=== PATIENT | female | born 1985 | race Caucasian/White ===

== ENCOUNTER → 2018-06-26 13:33 | Outpatient (CLI) | payer OTHER, SELFPAY ==
--- NOTE | 2018-06-26 14:28 | DI.US.S_ITS ---
PROCEDURE: US ABDOMEN LIMITED INDICATIONS: LEFT LOWER QUADRANT ABDOMINAL SWELLING,MASS AND LUMP TECHNIQUE: Real-time focused scanning was performed of the abdomen, with image documentation. COMPARISON: None. FINDINGS: No anterior abdominal wall abnormality or periumbilical hernia seen. IMPRESSION: No abdominal wall abnormality visualized. Dictated by: Capo ORTIZ Interpreted: Fuentes Fernandez MD on 06/26/2018 at 14:53 Approved by: Fuentes Fernandez M.D. on 06/26/2018 at 15:42
== END ==
PROVIDERS: Visit Provider Family Medicine
DX: R19.04 Left lower quadrant abdominal swelling, mass and lump (principal)
CPT/HCPCS: 76705

== ENCOUNTER → 2019-05-07 09:55 | Outpatient (CLI) | payer OTHER, SELFPAY ==
[2019-05-07 11:41] LABS: HCG Quantitative /Beta subunit 5618.8 mIU/mL
== END ==
PROVIDERS: PCP Family Medicine; Visit Provider Nurse Practitioner Family
DX: Z32.01 Encounter for pregnancy test, result positive (principal)
CPT/HCPCS: 36415; 84702

== ENCOUNTER → 2019-05-16 15:42 | Outpatient (CLI) | payer OTHER, SELFPAY ==
--- NOTE | 2019-05-16 15:44 | DI.RAD.S_ITS ---
PROCEDURE: XR CHEST 2V INDICATIONS: clnic pneumonia poor response to azithromycin 7 wks gestatio TECHNIQUE: 2 views of the chest were acquired. COMPARISON: None. FINDINGS: Surgical changes and devices: None. Lungs and pleura: Lungs are clear. No pleural effusions or pneumothorax. Mediastinum: Mediastinal contours are normal. Heart size is normal. Bones and chest wall: No suspicious bony abnormalities. Soft tissues appear unremarkable. IMPRESSION: Normal for age, source of current pneumonia symptoms is not seen. Dictated by: Saleem Adams M.D. on 05/16/2019 at 16:50 Approved by: Saleem Adams M.D. on 05/16/2019 at 16:50
== END ==
PROVIDERS: PCP Family Medicine; Visit Provider Family Medicine
DX: O99.511 Diseases of the respiratory system complicating pregnancy, first trimester (principal); J18.9 Pneumonia, unspecified organism; Z3A.01 Less than 8 weeks gestation of pregnancy
CPT/HCPCS: 71046

== ENCOUNTER → 2019-05-22 11:34 | Outpatient (CLI) | payer OTHER, SELFPAY ==
--- NOTE | 2019-05-22 11:35 | DI.US.S_ITS ---
PROCEDURE: US OB <= 14 WEEKS FETUS INDICATIONS: INITIAL DATING AND VIABILITY, UNSURE OF DATES OUTSIDE/PRIOR DATING DATA: Last menstrual period (LMP): Unknown. LMP-based estimated date of delivery (IRVIN): N./A.. First dating scan (date and location): 05/22/19. Estimated date of delivery (IRVNI) from first dating scan: 01/10/20. TECHNIQUE: Real-time scanning was performed of the fetus and maternal pelvic organs, with image documentation. Endovaginal scanning was also performed to better visualize the fetus and maternal ovaries. COMPARISON: None. FINDINGS: Embryo: A 8mm crown-rump length corresponding to 6 weeks 5 days. Heart rate measures 135 beats per minute. Measurement variability in dating: +/- 4 weeks by LMP, +/- 7 days by mean sac diameter (use before 6 weeks gestation if crown-rump length not able to be measured), +/- 5 days by crown-rump length (up to 8 weeks 6 days gestation), +/- 7 days by crown-rump length (up to 13 weeks 6 days gestation). Maternal organs: Right ovary not visualized. Left ovary within normal limits.. Limited images through the kidneys demonstrate no hydronephrosis. 2 small posterior uterine fibroids which appear to be intramural largest measuring up to 2.4 cm. IMPRESSION: 6 week 5 day single living IUP. Maternal intramural posterior fibroids, largest measuring up to 2.4 cm. Dictated by: Capo Galvez [facility] Interpreted: Andrzej Morataya MD on 05/22/2019 at 16:43 Approved by: Andrzej Morataya M.D. on 05/22/2019 at 17:29
== END ==
PROVIDERS: PCP Family Medicine; Visit Provider Family Medicine
DX: O34.11 Maternal care for benign tumor of corpus uteri, first trimester (principal); D25.1 Intramural leiomyoma of uterus; Z3A.01 Less than 8 weeks gestation of pregnancy
CPT/HCPCS: 76801

== ENCOUNTER → 2019-06-04 11:31 | Outpatient (CLI) | payer OTHER, SELFPAY ==
[2019-06-04 12:38] LABS: Appearance Urine UA SL CLOUDY; Bilirubin Urine UA NEGATIVE (NEGATIVE); Color Urine UA YELLOW; Glucose Urine UA NEGATIVE (Negative); Ketones Urine UA 1+ (NEGATIVE); Leukocyte Esterase Urine UA NEGATIVE (NEGATIVE); Nitrite Urine UA NEGATIVE (Negative); Occult Blood Urine UA NEGATIVE (Negative); Protein Urine UA NEGATIVE (Negative); Specific Gravity Urine UA 1.015 (1.000-1.035); Urobilinogen Urine UA 0.2 E.U./dL (0.2)
[2019-06-04 12:41] LABS: pH Urine UA 6.5 (4.5-8.0)
[2019-06-04 12:52] LABS: Add Manual Diff / Slide Review NO; Basophils Absolute Auto 0 /uL (0-100); Basophils Percent Auto 0.7 % (0-2); Eosinophils Absolute Auto 100 /uL (0-450); Eosinophils Percent Auto 1.9 % (2-4); Hematocrit 36.2 % (36-46); Hemoglobin 12.5 g/dL (12.0-16.0); Lymphocytes Absolute Auto 1400 /uL (1100-4500); Lymphocytes Percent Auto 23.3 % (25-40); Mean Corpuscular HGB Conc 34.5 % (30-36); Mean Corpuscular Hemoglobin 33.4 PG (26-34); Mean Corpuscular Volume 96.8 fL (80-100); Monocytes Absolute Auto 300 /uL (0-900); Monocytes Percent Auto 5.1 % (3-14); Neutrophils Absolute Auto 4300 /uL (1500-7000); Platelet Count 231 X10^3/uL (150-400); Red Blood Cell Count 3.74 X10^6/uL (4.0-5.2); Red Cell Distribution Width 13.1 % (11.6-14.8); White Blood Cell Count 6.2 X10^3/uL (4.5-11.0)
[2019-06-04 17:07] LABS: Hepatitis B Surface Antigen NEGATIVE s/c (NEGATIVE)
[2019-06-04 17:19] LABS: HIV 1 & 2 Ab/Ag 4th Gen Combo NEGATIVE (NEGATIVE); Hep C Virus Ab w/Reflex Quant NEGATIVE s/c (NEGATIVE)
[2019-06-06 17:55] LABS: RPR Screen Nonreactive (Nonreactive)
== END ==
PROVIDERS: PCP Family Medicine; Visit Provider Family Medicine
DX: Z34.01 Encounter for supervision of normal first pregnancy, first trimester (principal)
CPT/HCPCS: 36415; 80055; 81003; 86787; 86803; 86850; 86900; 86901; 87086; 87389

== ENCOUNTER → 2019-08-22 14:02 | Outpatient (CLI) | payer OTHER, SELFPAY ==
--- NOTE | 2019-08-22 14:03 | DI.US.S_ITS ---
PROCEDURE: US OB >= 14 WEEKS FETUS INDICATIONS: ANATOMY OUTSIDE/PRIOR DATING DATA: Last menstrual period (LMP): Unknown. LMP-based estimated date of delivery (IRVIN): Not applicable. First dating scan (date and location): [facility], 05/22/19. Estimated date of delivery (IRVIN) from first dating scan: 01/10/20. TECHNIQUE: Real-time scanning was performed of the fetus, with image documentation and biometric measurements. COMPARISON: [facility], OB <= 14 WEEKS FETUS, 05/22/2019, 11:47. [facility], , PELVIC COMPLETE, 07/18/2013, 10:54. FINDINGS: General: A single living intrauterine gestation is present. Presentation: Breech. Placenta: Placental position is anterior, without previa. Amniotic fluid index: 12.5 cm, normal range is 5-24 cm. heart rate: 149 beats per minute. Maternal cervical canal: 3.9 cm long. Normal lower limit is 2.5 cm. biometrics: Biparietal diameter: 3.9 cm, for gestational age of 17 weeks 6 days. Head circumference: 16.3 cm, for gestational age of 19 weeks one day. Abdominal circumference: 15.3 cm, for a gestational age of 20 weeks 4 days Femur length: 3.4 cm, for a gestational age of 20 weeks 6 days. Estimated gestational age from initial scan: 19 weeks 6 days. Composite gestational age from present scan: 19 weeks 4 days. Estimated weight and percentile: 350 g, 75th percentile. Measurement variability for biometric dating: +/- 7 days from 14 weeks to 15 weeks 6 days gestation, +/- 10 days from 16 weeks to 21 weeks 6 days gestation, +/- 2 weeks from 22 weeks to 27 weeks 6 days gestation, +/- 3 weeks for 28 weeks gestation or later. weight reference: 4500 g or EFW >90/95% is considered macrosomia or large for gestational age. EFW <10% is small for gestational age. EFW 5% or less is considered intra-uterine growth restriction. 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 The herniated contents measure approximately 3.1 x 4.1 x 3.0 cm in size. Nuchal skin fold: Could not be measured on this exam. Face: Nose, lips, and orbits appear intact. Spine: No ultrasound evidence for spina bifida. Heart: 4-chambered heart is present. Proximal ventricular outflow tracts could not demonstrate an obvious defect by ultrasound. Diaphragm: Diaphragm appears intact. Stomach: Stomach is present. Kidneys: No hydronephrosis. Cord: Umbilical cord appears to have an orthotopic insertion. Bladder: Normal in size. Extremities: All 4 extremities identified. IMPRESSION: 1. Single intrauterine gestation with heart rate of 149 beats per minute, amniotic fluid index of 12.5 cm, and composite gestational age from present scan of 19 weeks 4 days. 2. 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 Recommend clinical followup for further evaluation and management. Consider maternal medicine referral/consult. Followup ultrasounds are recommended. These findings were discussed with the patient at the time of the exam. These findings and recommendations were also discussed with Dr. Jonny Edouard, on-call covering provider for referring provider Dr. Jocy Rose, by telephone by Dr. Hayden at approximately 3:30pm on 08/22/19. Dictated by: Reyes Hayden M.D. on 08/22/2019 at 15:41 Approved by: Reyes Hayden M.D. on 08/22/2019 at 16:19
== END ==
PROVIDERS: PCP Family Medicine; Visit Provider Family Medicine
DX: Z36.89 Encounter for other specified antenatal screening (principal); Z3A.19 19 weeks gestation of pregnancy
CPT/HCPCS: 76811

== ENCOUNTER → 2020-02-04 16:53 | Outpatient (CLI) | payer OTHER, SELFPAY ==
[2020-02-04 18:47] LABS: HCG Quantitative /Beta subunit 11593 mIU/mL
== END ==
PROVIDERS: PCP Family Medicine; Referring Provider Family Medicine; Visit Provider Family Medicine
DX: N91.2 Amenorrhea, unspecified (principal)
CPT/HCPCS: 36415; 84702

== ENCOUNTER → 2020-02-06 09:14 | Outpatient (CLI) | payer OTHER, SELFPAY ==
[2020-02-06 11:17] LABS: HCG Quantitative /Beta subunit 15510 mIU/mL
== END ==
PROVIDERS: PCP Family Medicine; Referring Provider Family Medicine; Visit Provider Family Medicine
DX: N91.2 Amenorrhea, unspecified (principal)
CPT/HCPCS: 36415; 84702

== ENCOUNTER → 2020-02-09 15:59 | Outpatient (CLI) | payer OTHER, SELFPAY ==
--- NOTE | 2020-02-09 16:02 | DI.US.S_ITS ---
PROCEDURE: US OB <= 14 WEEKS FETUS INDICATIONS: VIABILITY OUTSIDE/PRIOR DATING DATA: Last menstrual period (LMP): 12/21/19. LMP-based estimated date of delivery (IRVIN): 09/26/20. First dating scan (date and location): 02/09/20. Estimated date of delivery (IRVIN) from first dating scan: 09/29/20. TECHNIQUE: Real-time scanning was performed of the fetus and maternal pelvic organs, with image documentation. Endovaginal scanning was also performed to better visualize the fetus and maternal ovaries. COMPARISON: [facility], , OB <= 14 WEEKS FETUS, 05/22/2019, 11:47. FINDINGS: Embryo: Eros-rump length measures 7 mm corresponding to 6 weeks 4 days. Embryonic heart rate measures 115 beats per minute. Measurement variability in dating: +/- 4 weeks by LMP, +/- 7 days by mean sac diameter (use before 6 weeks gestation if crown-rump length not able to be measured), +/- 5 days by crown-rump length (up to 8 weeks 6 days gestation), +/- 7 days by crown-rump length (up to 13 weeks 6 days gestation). Maternal organs: Ovaries within normal limits, with left corpus luteal cyst measuring 2.6 cm.. Limited images through the kidneys demonstrate no hydronephrosis. IMPRESSION: 6 week 4 day single living IUP corresponding to ultrasound IRVIN of 09/29/20. Dictated by: Capo Galvez [facility] Interpreted: Fuentes Fernandez MD on 02/10/2020 at 9:11 Approved by: Fuentes Fernandez M.D. on 02/10/2020 at 11:22
[2020-02-09 17:45] LABS: HCG Quantitative /Beta subunit 32556 mIU/mL
== END ==
PROVIDERS: PCP Family Medicine; Referring Provider Family Medicine; Visit Provider Family Medicine
DX: Z34.91 Encounter for supervision of normal pregnancy, unspecified, first trimester (principal); Z3A.01 Less than 8 weeks gestation of pregnancy
CPT/HCPCS: 36415; 76801; 84702

== ENCOUNTER → 2020-02-16 16:53 | Outpatient (CLI) | payer OTHER, SELFPAY ==
[2020-02-16 18:30] LABS: Add Manual Diff / Slide Review NO; Appearance Urine UA CLEAR; Basophils Absolute Auto 0 /uL (0-100); Basophils Percent Auto 0.4 % (0-2); Bilirubin Urine UA NEGATIVE (NEGATIVE); Color Urine UA YELLOW; Eosinophils Absolute Auto 100 /uL (0-450); Eosinophils Percent Auto 1.4 % (2-4); Glucose Urine UA NEGATIVE (Negative); Hematocrit 34.4 % (36-46); Hemoglobin 12.2 g/dL (12.0-16.0); Ketones Urine UA NEGATIVE (NEGATIVE); Lymphocytes Absolute Auto 1800 /uL (1100-4500); Lymphocytes Percent Auto 27.1 % (25-40); Mean Corpuscular HGB Conc 35.3 % (30-36); Mean Corpuscular Hemoglobin 34.7 PG (26-34); Mean Corpuscular Volume 98.1 fL (80-100); Monocytes Absolute Auto 300 /uL (0-900); Monocytes Percent Auto 5.3 % (3-14); Neutrophils Absolute Auto 4300 /uL (1500-7000); Neutrophils Percent Auto 65.8 % (50-75); Nitrite Urine UA NEGATIVE (Negative); Occult Blood Urine UA NEGATIVE (Negative); Platelet Count 238 X10^3/uL (150-400); Protein Urine UA NEGATIVE (Negative); Red Blood Cell Count 3.51 X10^6/uL (4.0-5.2); Red Cell Distribution Width 12.3 % (11.6-14.8); Specific Gravity Urine UA <=1.005 (1.000-1.035); Urobilinogen Urine UA 0.2 E.U./dL (0.2); White Blood Cell Count 6.6 X10^3/uL (4.5-11.0)
[2020-02-16 18:34] LABS: Leukocyte Esterase Urine UA NEGATIVE (NEGATIVE)
[2020-02-17 04:07] LABS: RPR Screen Non Reactive (Non Reactive)
[2020-02-17 08:09] LABS: Varicella IgG Antibody 323 index (Immune >165)
[2020-02-17 16:01] LABS: Hepatitis B Surface Antigen NEGATIVE s/c (NEGATIVE)
[2020-02-17 16:16] LABS: HIV 1 & 2 Ab/Ag 4th Gen Combo NEGATIVE (NEGATIVE); Hep C Virus Ab w/Reflex Quant NEGATIVE s/c (NEGATIVE)
[2020-02-17 16:24] LABS: Rubella Antibody IgG 27.5 IU/mL (>15)
== END ==
PROVIDERS: PCP Family Medicine; Referring Provider Family Medicine; Visit Provider Family Medicine
DX: Z34.90 Encounter for supervision of normal pregnancy, unspecified, unspecified trimester (principal)
CPT/HCPCS: 36415; 80055; 81003; 86787; 86803; 86850; 86900; 86901; 87086; 87389

== ENCOUNTER → 2020-05-14 07:45 | Outpatient (CLI) | payer OTHER, SELFPAY ==
--- NOTE | 2020-05-14 07:46 | DI.US.S_ITS ---
PROCEDURE: US OB >= 14 WEEKS FETUS INDICATIONS: ANATOMIC SURVEY OUTSIDE/PRIOR DATING DATA: Last menstrual period (LMP): 12/21/19. LMP-based estimated date of delivery (IRVIN): 09/26/20 . First dating scan (date and location): 02/09/20 . Estimated date of delivery (IRVIN) from first dating scan: 09/29/20 . TECHNIQUE: Real-time scanning was performed of the fetus, with image documentation and biometric measurements. Endovaginal scanning: Not needed COMPARISON: [facility], OB >= 14 WEEKS FETUS, 08/22/2019, 14:26. FINDINGS: General: A single living intrauterine gestation is present. Presentation: Variable. Placenta: Placental position is posterior , without previa. Amniotic fluid index: 12.4 cm, normal range is 5-24 cm. heart rate: 160 beats per minute. Maternal cervical canal: 5.2 cm long. Normal lower limit is 2.5 cm. biometrics: Biparietal diameter: 4.5 cm, 19 weeks 4 days Head circumference: 16.7 cm, 19 weeks 2 days Abdominal circumference: 14.7 cm, 20 weeks 0 days Femur length: 3.1 cm, 19 weeks 5 days Estimated gestational age from initial scan: 20 weeks 2 days. Composite gestational age from present scan: 19 weeks 5 days Estimated weight and percentile: 311 g, 19th percentile Measurement variability for biometric dating: +/- 7 days from 14 weeks to 15 weeks 6 days gestation, +/- 10 days from 16 weeks to 21 weeks 6 days gestation, +/- 2 weeks from 22 weeks to 27 weeks 6 days gestation, +/- 3 weeks for 28 weeks gestation or later. weight reference: 4500 g or EFW >90/95% is considered macrosomia or large for gestational age. EFW <10% is small for gestational age. EFW 5% or less is considered intra-uterine growth restriction. Anatomic survey: Neuro: Ventricles are non-dilated at less than 10 mm. Cisterna magna is normal at 3-11 mm. Cerebellum is normal in size and morphology. Nuchal skin fold: Normal at less than 6 mm between 14-21 weeks gestational age. Face: Nose and lips, facial profile are poorly visualized. Spine: No evidence for spina bifida. Heart: 4-chambered heart is not well seen, with poorly visualized ventricular outflow tracts. Diaphragm: Diaphragm is intact. Stomach: Left-sided stomach is present. Kidneys: No hydronephrosis. Normal is less than 5 mm in 2nd trimester, less than 7 mm in 3rd trimester. Cord: 3-vessel cord has orthotopic insertion. Bladder: Normal in size. Extremities: All 4 extremities identified. IMPRESSION: The facial region and ventricular outflow tracts are relatively poorly visualized as is the 4 chamber view the heart. This is due to positioning. Otherwise the study is normal. Follow-up limited Ob ultrasound to complete the anatomic survey in 7-10 days likely is warranted. Dictated by: Saleem Adams M.D. on 05/14/2020 at 11:45 Approved by: Saleem Adams M.D. on 05/14/2020 at 11:51
== END ==
PROVIDERS: PCP Family Medicine; Referring Provider Family Medicine; Visit Provider Family Medicine
DX: Z34.82 Encounter for supervision of other normal pregnancy, second trimester (principal); Z3A.19 19 weeks gestation of pregnancy
CPT/HCPCS: 76811

== ENCOUNTER → 2020-05-28 09:45 | Outpatient (CLI) | payer OTHER, SELFPAY ==
--- NOTE | 2020-05-28 09:46 | DI.US.S_ITS ---
PROCEDURE: US OB FOLLOW UP INDICATIONS: requested on last imaging, eval heart OUTSIDE/PRIOR DATING DATA: Last menstrual period (LMP): 12/21/2019. LMP-based estimated date of delivery (IRVIN): 09/26/2020 First dating scan (date and location): 02/08/2021. Estimated date of delivery (IRVIN) from first dating scan: 09/29/2020. TECHNIQUE: Real-time scanning was performed of the fetus, with image documentation. Endovaginal scanning: Completed COMPARISON: [facility], , OB >= 14 WEEKS FETUS, 05/14/2020, 8:06. FINDINGS: A single living intrauterine gestation is present. Presentation: Vertex. Placenta: Placental position is posterior, without previa. Amniotic fluid index: 11.5 cm, normal range is 5-24 cm. heart rate: 135 beats per minute. Maternal cervical canal: 5.2 cm long. Normal lower limit is 2.5 cm. Additional sonographic evaluation of structures was also performed, compounded to prior survey performed on 05/14/2020. diaphragm appears unremarkable. Normal anatomic appearance of the four-chamber heart view, right ventricular outflow tract, and left ventricular outflow tract. spine and posterior skin line appear intact. lips and nose are intact. Nasal bone is intact. IMPRESSION: Completion of anatomic survey without evident abnormality. Dictated by: Pedro Minor M.D. on 05/30/2020 at 10:41 Approved by: Pedro Minor M.D. on 05/30/2020 at 10:53
== END ==
PROVIDERS: PCP Family Medicine; Referring Provider Family Medicine; Visit Provider Family Medicine
DX: Z36.2 Encounter for other antenatal screening follow-up (principal); Z3A.20 20 weeks gestation of pregnancy
CPT/HCPCS: 76816

== ENCOUNTER → 2020-07-09 10:58 | Outpatient (CLI) | payer OTHER, SELFPAY ==
[2020-07-09 14:26] LABS: Add Manual Diff / Slide Review NO; Basophils Absolute Auto 100 /uL (0-100); Basophils Percent Auto 0.6 % (0-2); Eosinophils Absolute Auto 100 /uL (0-450); Eosinophils Percent Auto 1.1 % (2-4); Hematocrit 32.3 % (36-46); Hemoglobin 11.3 g/dL (12.0-16.0); Lymphocytes Absolute Auto 1100 /uL (1100-4500); Lymphocytes Percent Auto 11.1 % (25-40); Mean Corpuscular HGB Conc 34.9 % (30-36); Mean Corpuscular Hemoglobin 34.8 PG (26-34); Mean Corpuscular Volume 99.8 fL (80-100); Monocytes Absolute Auto 500 /uL (0-900); Monocytes Percent Auto 4.9 % (3-14); Neutrophils Absolute Auto 8200 /uL (1500-7000); Neutrophils Percent Auto 82.3 % (50-75); Platelet Count 203 X10^3/uL (150-400); Red Blood Cell Count 3.24 X10^6/uL (4.0-5.2); White Blood Cell Count 9.9 X10^3/uL (4.5-11.0)
[2020-07-09 15:17] LABS: GTT (PREG) 1 Hour PP 50gm Dose 76 mg/dL (76-139)
== END ==
PROVIDERS: PCP Family Medicine; Referring Provider Family Medicine; Visit Provider Family Medicine
DX: Z34.83 Encounter for supervision of other normal pregnancy, third trimester (principal); Z3A.28 28 weeks gestation of pregnancy
CPT/HCPCS: 36415; 82950; 85025

== ENCOUNTER → 2020-09-03 09:44 | Outpatient (CLI) | payer OTHER, SELFPAY ==
[2020-09-04 08:15] LABS: Strep Grp B PCR NEG for Grp B Strep
== END ==
PROVIDERS: PCP Family Medicine; Visit Provider Family Medicine
DX: Z34.90 Encounter for supervision of normal pregnancy, unspecified, unspecified trimester (principal); Z3A.36 36 weeks gestation of pregnancy
CPT/HCPCS: 87653

== ENCOUNTER → 2020-09-07 14:28 | Outpatient (CLI) | payer OTHER, SELFPAY ==
--- NOTE | 2020-09-07 14:30 | DI.US.S_ITS ---
PROCEDURE: US OB LIMITED INDICATIONS: SIZE LESS THAN DATES. GROWTH AND AMNIOTIC FLUID. OUTSIDE/PRIOR DATING DATA: Last menstrual period (LMP): 12/21/2019. LMP-based estimated date of delivery (IRVIN): 09/26/2020 . First dating scan (date and location): 02/09/2020 . Estimated date of delivery (IRVIN) from first dating scan: 09/29/2020 . TECHNIQUE: Real-time scanning was performed of the fetus, with image documentation and biometric measurements. Endovaginal scanning: No COMPARISON: [facility], OB FOLLOW UP, 05/28/2020, 10:33. FINDINGS: General: A single living intrauterine gestation is present. Presentation: Vertex. Placenta: Placental position is posterior , without previa. Amniotic fluid index: 15.6 cm, normal range is 5-24 cm. heart rate: 136 beats per minute. Maternal cervical canal: 3.7 cm long. Normal lower limit is 2.5 cm. biometrics: Biparietal diameter: 36 weeks 4 days Head circumference: 34 weeks 1 day Abdominal circumference: 34 weeks 3 days Femur length: 35 weeks 2 days Estimated gestational age from initial scan: 36 weeks 6 days Composite gestational age from present scan: 35 weeks 1 day Estimated weight and percentile: 2524 g; 11th percentile Measurement variability for biometric dating: +/- 7 days from 14 weeks to 15 weeks 6 days gestation, +/- 10 days from 16 weeks to 21 weeks 6 days gestation, +/- 2 weeks from 22 weeks to 27 weeks 6 days gestation, +/- 3 weeks for 28 weeks gestation or later. weight reference: 4500 g or EFW >90/95% is considered macrosomia or large for gestational age. EFW <10% is small for gestational age. EFW 5% or less is considered intra-uterine growth restriction. Other: Not applicable. IMPRESSION: Single living IUP redemonstrated and interval growth is lower limits of normal. Dictated by: Capo Galvez [facility] Interpreted: Andrzej Morataya MD on 09/07/2020 at 16:21 Approved by: Andrzej Morataya M.D. on 09/07/2020 at 16:46
== END ==
PROVIDERS: PCP Family Medicine; Referring Provider Family Medicine; Visit Provider Family Medicine
DX: O26.843 Uterine size-date discrepancy, third trimester (principal); Z3A.35 35 weeks gestation of pregnancy
CPT/HCPCS: 76815

== ENCOUNTER 2020-09-07 17:28 | Outpatient (CLI) | payer OTHER, SELFPAY ==
--- NOTE | 2020-09-07 20:40 | PM.OBTRLD ---
Visit Information Visit Information Date of evaluation: 09/07/20 Primary OB Provider: Jocy Rose Reason for Evaluation: Yes non-stress test non-stress test reason: other (SGA progressing to IUGR) [facility] Medical History (Updated 09/07/20 @ 20:42 by Jocy Rose MD) Fetus with encephalocele, antepartum History of drug use Psoriasis (~1999) Surgical History Anesthesia Status post wrist surgery (~2002) Family History (Updated 02/18/20 @ 15:57 by Tresa Paulino RN) Father Age: 70 Mental health problem Bipolar 1 disorder Grandfather Mental health problem Suicide Diabetes mellitus Myocardial infarction Grandmother Hypertension High cholesterol History of multiple miscarriages Kidney stones Brother Depression Grandmother Emphysema of lung Grandfather Diabetes mellitus Mother Toshia infection Depression Family/Other Breast cancer Family/Other Leukemia Social History marital status: unmarried,living together household members: significant other 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) current occupational exposures/hazards: Yes special kathleen needs: No Smoking Status: Former smoker second hand exposure: Yes alcohol intake: former (pre-) substance use type: former substance user Evaluation Evaluation Baseline heart rate: 130 Variability: Moderate (11-25) monitor accelerations: Present monitor decelerations: Absent Category of Tracing: Reactive Diagnosis, Plan/Disposition Final Diagnosis (1) 36 weeks gestation of : Status: Acute (2) SGA (small for gestational age), , affecting care of mother, antepartum: Status: Acute Plan/Disposition Plan: 35yo at 36w6d here for NST due to SGA progressing to IUGR. NST reactive. Stable of d/c home. OB Disposition: home
[2020-09-09 08:08] LABS: RPR Screen Non Reactive (Non Reactive)
[2020-09-09 12:54] LABS: Toxoplasma IgG Interp Negative (.); Toxoplasma gohndii IgG <3.0 IU/mL (0.0-7.1)
[2020-09-09 19:07] LABS: HSV I/II IgM <0.91 Ratio (0.00-0.90)
[2020-09-10 16:35] LABS: CMV DNA, Quant Real Time PCR Negative (Negative)
== END 2020-09-07 19:08 | disposition home or self-care (01) ==
LOC: LAB 17:35 → LABOR 17:50
PROVIDERS: PCP Family Medicine; Referring Provider Family Medicine; Visit Provider Family Medicine
DX: O26.843 Uterine size-date discrepancy, third trimester (principal); Z3A.36 36 weeks gestation of pregnancy
CPT/HCPCS: 36415; 59025; 76815; 86592; 86694; 86777; 86778; 87497; G0378

== ENCOUNTER 2020-09-10 11:31 | Outpatient (CLI) | payer OTHER, SELFPAY ==
--- NOTE | 2020-09-10 12:01 | P.TNLD_ITS ---
Visit Information Visit Information Date of evaluation: 09/10/20 Primary OB Provider: Jocy Rose Reason for Evaluation: Yes non-stress test non-stress test reason: other (SGA) [facility] Medical History (Updated 09/10/20 @ 14:25 by Jocy Rose MD) Fetus with encephalocele, antepartum History of drug use Psoriasis (~1999) Surgical History Anesthesia Status post wrist surgery (~2002) Family History (Updated 02/18/20 @ 15:57 by Tresa Paulino RN) Father Age: 70 Mental health problem Bipolar 1 disorder Grandfather Mental health problem Suicide Diabetes mellitus Myocardial infarction Grandmother Hypertension High cholesterol History of multiple miscarriages Kidney stones Brother Depression Grandmother Emphysema of lung Grandfather Diabetes mellitus Mother Toshia infection Depression Family/Other Breast cancer Family/Other Leukemia Social History marital status: unmarried,living together household members: significant other 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) current occupational exposures/hazards: Yes special kathleen needs: No Smoking Status: Former smoker second hand exposure: Yes alcohol intake: former (pre-) substance use type: former substance user Evaluation Evaluation Baseline heart rate: 135 Variability: Moderate (11-25) monitor accelerations: Present monitor decelerations: Absent Category of Tracing: Reactive Diagnosis, Plan/Disposition Final Diagnosis (1) SGA (small for gestational age), , affecting care of mother, antepartum: Status: Acute (2) 37 weeks gestation of : Status: Deleted (3) 37 weeks gestation of : Status: Acute Plan/Disposition Plan: 35yo at 37w2d here for NST due to SGA. Reactive NST. IOL scheduled for next week. OB Disposition: home
== END 2020-09-10 12:05 | disposition home or self-care (01) ==
LOC: LABOR 12:23 → OB 09-12 10:30
PROVIDERS: PCP Family Medicine; Referring Provider Family Medicine; Visit Provider Family Medicine
DX: O36.5930 Maternal care for other known or suspected poor fetal growth, third trimester, not applicable or unspecified (principal); O09.523 Supervision of elderly multigravida, third trimester; Z3A.37 37 weeks gestation of pregnancy
CPT/HCPCS: 59025; G0378; G0379

== ENCOUNTER 2020-09-14 19:24 | Inpatient (IN) | payer OTHER, SELFPAY ==
[2020-09-14] MEDS: DINOPROSTONE VAG (CERVIDIL) 10 MG VAG (20:30)
[2020-09-14 20:58] LABS: Add Manual Diff / Slide Review NO; Basophils Absolute Auto 100 /uL (0-100); Eosinophils Absolute Auto 100 /uL (0-450); Eosinophils Percent Auto 1.1 % (2-4); Hematocrit 32.5 % (36-46); Hemoglobin 11.3 g/dL (12.0-16.0); Lymphocytes Absolute Auto 2000 /uL (1100-4500); Lymphocytes Percent Auto 19.6 % (25-40); Mean Corpuscular HGB Conc 34.7 % (30-36); Mean Corpuscular Hemoglobin 34.4 PG (26-34); Mean Corpuscular Volume 99.3 fL (80-100); Monocytes Absolute Auto 600 /uL (0-900); Monocytes Percent Auto 6.3 % (3-14); Neutrophils Absolute Auto 7300 /uL (1500-7000); Platelet Count 206 X10^3/uL (150-400); Red Blood Cell Count 3.27 X10^6/uL (4.0-5.2); Red Cell Distribution Width 12.3 % (11.6-14.8); White Blood Cell Count 10.2 X10^3/uL (4.5-11.0)
[2020-09-14 21:10] LABS: COVID19 -Nasal RAPID Negative (Negative)
[2020-09-14] MEDS: CALCIUM CARBONATE 500 MG TAB 1000 MG PO (21:11)
[2020-09-14 22:56] VITALS: BP 110/58
--- NOTE | 2020-09-15 10:59 | PM.OBHP.1 ---
OB HPI Date/Time Date of admission: 09/14/20 Date Patient Seen: 09/15/20 Time Patient Seen: 07:30 History of Present Condition Chief complaint: induction : 3 Para: 0 Estimated Date of Delivery: 09/29/20 Estimated Gestational Age (weeks): 38w0d Narrative: Donya Johns is a 35 year old at 38w0d here for IOL due to SGA progressing towards IUGR with falling JANAY. Pt feeling well. She denies any vaginal bleeding, LOF, or contractions. She is feeling her baby move regularly. Indications Indication for induction OB: other (SGA progressing towards IUGR and falling JANAY) History of Present care: good care, initiated at week # (11) and pounds weight gain (23) Dating criteria: LMP confirmed by 1st trimester US Ultrasounds: normal 1st trimester US and normal mid trimester US Medical complications: none Preadmission Labs Blood type: A (+) positive -: Antibody screen: negative, GBS status: negative, HBsAG: negative, HIV: negative and RPR/VDLR: negative -: Rubella: immune and Varicella: immune HCAB: negative Cell-free DNA: Negative Urine: Negative 1 hr GTT: 76 Prior (ies) History: 08/2011 - 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, elective termination Evaluation Evaluation Baseline heart rate: 130 Variability: Moderate (11-25) monitor accelerations: Present monitor decelerations: Absent Status: Category l Cervical dilation (cm): 3 Cervical effacement (%): 75 station: -2 Laboratory results: Laboratory Tests 09/14/20 09/14/20 09/14/20 20:35 20:35 20:50 WBC 10.2 RBC 3.27 L Hgb 11.3 L Hct 32.5 L MCV 99.3 MCH 34.4 H MCHC 34.7 RDW 12.3 Plt Count 206 Neut % (Auto) 72.0 Lymph % (Auto) 19.6 L [place] % (Auto) 6.3 Eos % (Auto) 1.1 L Baso % (Auto) 1.0 Neut # (Auto) 7300 H Lymph # (Auto) 2000 [place] # (Auto) 600 Eos # (Auto) 100 Baso # (Auto) 100 SARS-CoV-2 (PCR) Negative Blood Type A Positive Antibody Screen Negative [facility] Medical History (Updated 09/10/20 @ 14:49 by Jocy Rose MD) Fetus with encephalocele, antepartum History of drug use Psoriasis (~1999) Surgical History Anesthesia Status post wrist surgery (~2002) Family History (Updated 02/18/20 @ 15:57 by Tresa Paulino RN) Father Age: 70 Mental health problem Bipolar 1 disorder Grandfather Mental health problem Suicide Diabetes mellitus Myocardial infarction Grandmother Hypertension High cholesterol History of multiple miscarriages Kidney stones Brother Depression Grandmother Emphysema of lung Grandfather Diabetes mellitus Mother Toshia infection Depression Family/Other Breast cancer Family/Other Leukemia Social History marital status: unmarried,living together household members: significant other 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) current occupational exposures/hazards: Yes special kathleen needs: No Smoking Status: Former smoker second hand exposure: Yes alcohol intake: former (pre-) substance use type: former substance user Meds Home Medications and Allergies Home Medications Medication Instructions Recorded Confirmed Type cholecalciferol (vitamin D3) 25 1,000 unit PO DAILY 06/04/19 08/25/20 History mcg (1,000 unit) capsule folic acid 400 mcg tablet 0.4 mg PO DAILY 02/18/20 08/25/20 History prenat.vits,julianna,dai-difd-hosrq 1 tab PO DAILY 02/18/20 08/25/20 History Allergies Allergy/AdvReac Type Severity Reaction Status Date / Time No Known Drug Allergies Allergy Verified 08/25/20 16:14 Exam Const General: cooperative, healthy appearing and comfortable Orientation: alert, awake and oriented x3 Resp Effort & Inspection: normal respiratory effort Auscultation: clear to auscultation bilaterally Cardio Rate: regular rate Rhythm: regular rhythm Heart Sounds: S1 normal, S2 normal and no murmurs GI Inspection: non-distended Palpation: soft and No tender Other: gravid Presentation: vertex Estimated Weight (lbs): 5 Extrem General: no clubbing, cyanosis or edema Objective Labs Result Diagrams: 09/14/20 20:35 Labs: Laboratory Results - last 24 hr 09/14/20 09/14/20 09/14/20 20:35 20:35 20:50 WBC 10.2 RBC 3.27 L Hgb 11.3 L Hct 32.5 L MCV 99.3 MCH 34.4 H MCHC 34.7 RDW 12.3 Plt Count 206 Neut % (Auto) 72.0 Lymph % (Auto) 19.6 L [place] % (Auto) 6.3 Eos % (Auto) 1.1 L Baso % (Auto) 1.0 Neut # (Auto) 7300 H Lymph # (Auto) 2000 [place] # (Auto) 600 Eos # (Auto) 100 Baso # (Auto) 100 SARS-CoV-2 (PCR) Negative Blood Type A Positive Antibody Screen Negative Assessment and Plan Assessment and Plan Assessment and Plan narrative: 35yo at 38w0d here for IOL due to SGA progressing to IUGR and falling JANAY. Received Cervidil overnight, now with some cramping. Minimal cervical change. Rh positive, GBS negative. - Expectant management, anticipate - FHT reassuring - Start pitocin, titrate as tolerated - GBS negative, no prophylaxis indicated
[2020-09-15] MEDS: LACTATED RINGERS 1,000 ML 100 ML IV (15:15)
[2020-09-15] MEDS: OXYTOCIN PREMIX 30 UNIT/500 ML PLAST..BAG IV (15:49)
--- NOTE | 2020-09-15 17:39 | PM.OBPNLAB ---
Date/Time Date Patient Seen: 09/15/20 Time Patient Seen: 17:39 Pain Control Pain control: tolerating well Pelvic Exam Dilation (cm): 5 Effacement (%): 90 station: -1 Amniotic membrane status: Ruptured Comments: After informed consent, AROM performed with production of clear fluid. Contractions Monitor mode: External Pitocin rate (mU/min): 5 Contraction frequency (min): 2 Contraction duration (min): 1 Contraction pattern: Regular Contraction intensity: Strong/Firm Status status: Category l Heart Rate Baseline: 150 Monitor Accelerations: Present Monitor Decelerations: Absent Monitor Variability: Moderate Assessment and Plan Comments: 35yo at 38w0d here for IOL due to SGA progressing to IUGR and falling JANAY. Received Cervidil overnight, now with some cramping. AROM performed with production of clear fluid. Rh positive, GBS negative. - Expectant management, anticipate - FHT reassuring - Continue pitocin, titrate as tolerated - GBS negative, no prophylaxis indicated - Pt using nitrous for pain control
--- NOTE | 2020-09-15 20:56 | PM.OBPRVD ---
Events: Other (SGA) Labor & Delivery Delivery date: 09/15/20 Estimated blood loss (mL): 300 Anesthesia Type: Epidural Complications: None Narrative: PROCEDURE: at 37w6d presented for IOL due to SGA progressing to IUGR and falling JANAY and was admitted to Labor and Delivery. The patient progressed through the 1st stage over 2.5 hours. She received cervidil, followed by pitocin. AROM was performed with production of clear fluid. Pain was controlled with nitrous and then an epidural. The patient progressed through the 2nd stage over 49min and delivered a viable male with APGARs 9/10 at 20:26 via without complications. The cord was clamped and cut after it stopped pulsating. The perineum and vagina were inspected with 2nd degree vaginal laceration repaired with 3-O Chromic. PREPROCEDURE DIAGNOSIS: Intrauterine at 37w6d SGA GBS negative RH positive POSTPROCEDURE DIAGNOSIS: Intrauterine at 38w0d, delivered Same as preprocedure INDUCTION: Cervidil LABOR AUGMENTATION: Pitocin, AROM ROM APPEARANCE: Clear BABY A DELIVERY TIME: 20:26 BABY A OUTCOME: Viable BABY A SEX: Male BABY A WEIGHT: 5.lb15.9oz BABY A PRESENTATION: Vertex BABY A POSITION: OA BABY A NUCHAL CORD: None BABY A # CORD VESSELS: 3 BABY A CORD GASES OBTAINED: No PLACENTA DELIVERY TIME: 20:34 PLACENTAL DELIVERY TYPE: Spontaneous PLACENTA APPEARANCE: Intact Baby 1: gender: Male score (1 min): 9 score (5 min): 10 Plan for aftercare: Normal care
[2020-09-16] MEDS: IBUPROFEN 600 MG TABLET PO ×2 (05:17→11:53)
[2020-09-16] MEDS: DOCUSATE 100 MG CAPSULE PO (09:05)
[2020-09-16] MEDS: PRENATAL VIT,CALC/IRON/FOLIC 1 TABLET 1 TAB PO (09:05)
[2020-09-16] MEDS: DERMOPLAST SPRAY 20% 60 ML 1 SPRAY TOP (11:57)
[2020-09-16] MEDS: LANOLIN OINT 7 GM 1 APPLIC TOP (11:57)
--- NOTE | 2020-09-16 14:19 | P.DS_ITS ---
Discharge Providers Provider Date of admission: 09/14/20 19:24 Discharge Date: 09/16/20 Primary care physician: Jocy Rose MD Consults: 09/16/20 20:55 Consult to Web Developer Programmer Routine Comment: Discharge provider: Jocy Rose MD Summary Hospital Course Date Patient Seen: 09/16/20 Time Patient Seen: 08:00 Procedures: Spontaneous vaginal delivery Hospital Course: The pt presented for IOL due to SGA progressing to IUGR and falling JANAY. The pt received cervidil for induction. She was then started on pitocin. AROM was performed with production of clear fluid. The pt received an epidural for pain control. She progressed to complete. She had a spontaneous vaginal delivery of a viable baby boy. A 2nd degree vaginal laceration was repaired. , there were no complications. The time of discharge was voiding, ambulating, passing flatus without difficulty. Her pain was adequately controlled. She was breast-feeding about. Her lochia was decreasing appropriately. She will follow up in clinic in 6 weeks. She will use natural methods for control. Peripartum Data Delivery Method: Natural Vaginal Laceration Description: Vaginal - 2nd Degree Episiotomy description: None Procedures: Spontaneous vaginal delivery complications: none [place] 1: Gender: Male Disposition of : home Discharge Diagnosis (1) Spontaneous vaginal delivery: Status: Acute Status at Discharge Cognitive/behavioral status at discharge: oriented Functional status at discharge: independent ambulation Overall status at discharge: patient is progressing back to baseline Time Spent with Patient Time attestation: Total time spent providing and/or coordinating discharge services: Objective Labs Result Diagrams: 09/14/20 20:35 Exam Narrative Exam Narrative: Gen: NAD, sitting comfortably in bed, appears well CV: RRR, no murmurs Resp: clear to auscultation bilaterally Abd: soft, appropriately tender, fundus firm and below the umbilicus, nondistended Ext: no edema Resp Auscultation: clear to auscultation bilaterally Cardio Rate: regular rate Rhythm: regular rhythm Heart Sounds: S1 normal, S2 normal and no murmurs GI Inspection: non-distended and obesity Palpation: soft, No guarding and tender (appropriately tender) Auscultation: normal bowel sounds Other: fundus firm and below the umbilicus Extrem Right upper extremity: no edema Discharge Plan Discharge Plan Patient Disposition: Home Discharge orders & Medications Prescriptions: Continued prenat.vits,julianna,[id number] Tablet 1 tab PO DAILY RF: 0 folic acid 400 mcg tablet 0.4 mg PO DAILY RF: 0 Follow up/Referrals: Jocy Rose MD [Primary Care Provider] - 6 Weeks Diet/Activity/Treatments Diet: Diet as Tolerated and Regular Skin/Wound/Dressing Care Report to your healthcare provider any signs of infection, such as:: chills, fever, increased pain and unusual drainage Visit Report/Discharge Packet Instructions: DI for Labor and Delivery, Vaginal Visit Report Forms: Patient Portal/API, Stroke Signs & Symptoms Discharge Data Primary Care Provider: Jocy Rose
[2020-09-16 15:05] VITALS: BP 100/60; PULSE 72; RESP 17; TEMP 36.8
== END 2020-09-16 17:36 | disposition home or self-care (01) | DRG 805 ==
PROVIDERS: Admitting Provider Family Medicine; PCP Family Medicine; Referring Provider Family Medicine; Visit Provider Family Medicine
DX: O70.1 Second degree perineal laceration during delivery (principal); O60.13X0 Preterm labor second trimester with preterm delivery third trimester, not applicable or unspecified; Z37.0 Single live birth; Z3A.37 37 weeks gestation of pregnancy; Z20.822 Contact with and (suspected) exposure to COVID-19
CPT/HCPCS: 01967; 36415; 59050; 59200; 59400; 85025; 86850; 86900; 86901; 87635; C9803; G0379; J2590

== ENCOUNTER 2020-09-24 17:36 | Inpatient (IN) | payer OTHER, SELFPAY ==
[2020-09-24] VITALS (29 sets, daily range): BP systolic 62–100; BP diastolic 32–60; PULSE 64–117; RESP 11–21; TEMP 36.2–37.3; O2SAT 96–100; BMI 29.2; BMI 27.3
[2020-09-24] MEDS: SODIUM CHLORIDE 0.9% 1,000 ML 1000 ML IV (18:18)
[2020-09-24 18:23] LABS: Add Manual Diff / Slide Review NO; Basophils Absolute Auto 100 /uL (0-100); Basophils Percent Auto 0.9 % (0-2); Eosinophils Absolute Auto 300 /uL (0-450); Eosinophils Percent Auto 2.6 % (2-4); Hematocrit 33.7 % (36-46); Hemoglobin 11.7 g/dL (12.0-16.0); Lymphocytes Absolute Auto 3300 /uL (1100-4500); Lymphocytes Percent Auto 33.2 % (25-40); Mean Corpuscular HGB Conc 34.9 % (30-36); Mean Corpuscular Hemoglobin 34.3 PG (26-34); Mean Corpuscular Volume 98.3 fL (80-100); Monocytes Absolute Auto 700 /uL (0-900); Monocytes Percent Auto 6.6 % (3-14); Neutrophils Absolute Auto 5600 /uL (1500-7000); Neutrophils Percent Auto 56.7 % (50-75); Platelet Count 373 X10^3/uL (150-400); Red Blood Cell Count 3.43 X10^6/uL (4.0-5.2); Red Cell Distribution Width 12.1 % (11.6-14.8); White Blood Cell Count 9.9 X10^3/uL (4.5-11.0)
--- NOTE | 2020-09-24 18:23 | ED.FEMALEGU ---
HPI - Female Genitourinary General Chief complaint: Vaginal Bleeding Stated complaint: States gave 9 days ago, bleeding Time Seen by Provider: 09/24/20 18:00 Source: patient Mode of arrival: Ambulatory Limitations: no limitations History of Present Illness HPI Narrative: 35-year-old female nonsmoker with recent vaginal delivery presents with her in the chief complaint of significant bright red bleeding vaginally. She had been in her normal state of health over the past few days and had a brief episode of bleeding earlier today which resolved spontaneously. 1 hour prior to her arrival she felt what she thought was a stitch, out and then developed significant bleeding which has not slowed whatsoever. She is not dizzy, weak and lightheaded. She last had anything to eat or drink at about 3:00 p.m. today. She did suffered a grade 2 perineal laceration as a consequence of her delivery that was repaired with suture. Related Data Home Medications Medication Instructions Recorded Confirmed folic acid 400 mcg tablet 0.4 mg PO DAILY 02/18/20 09/15/20 prenat.vits,julianna,[id number] 1 tab PO DAILY 02/18/20 09/15/20 Allergies Allergy/AdvReac Type Severity Reaction Status Date / Time No Known Drug Allergies Allergy Verified 09/24/20 19:30 Review of Systems Constitutional Constitutional: Denies chills, Reports excessive sweating, Reports fatigue, Denies fever(s), Denies frequent falls, Denies lethargy and Reports weakness Eyes Eyes: Denies change in vision, Denies eye discharge, Denies irritation and Denies loss of vision ENT Ears, Nose, Mouth, and Throat: Denies change in voice, Denies dizziness, Denies neck pain, Denies sore throat and Denies throat swelling Cardiovascular Cardiovascular: Denies chest pain, Denies irregular heart rhythm, Denies lightheadedness, Denies palpitations, Reports dyspnea, Denies dyspnea on exertion and Denies orthopnea Respiratory Respiratory: Denies cough, Reports dyspnea, Denies dyspnea on exertion and Denies wheezing Gastrointestinal Gastrointestinal: Denies abdominal pain, Denies change in bowel habits, Denies diarrhea, Denies nausea and Denies vomiting Genitourinary Genitourinary: Reports abnormal vaginal bleeding Musculoskeletal Musculoskeletal: Denies neck pain and Denies numbness Integumentary/Breasts Skin/Breast: Denies pruritus, Denies erythema, Denies rash and Denies wounds Neurologic Neurologic: Denies behavioral changes, Denies confusion, Denies dizziness, Denies frequent falls, Denies loss of vision, Denies numbness and Reports weakness Psychiatric Psychiatric: Denies anxiety, Denies behavioral changes, Denies confusion, Denies depression, Denies homicidal ideation and Denies suicidal ideation Endocrine Endocrine: Reports excessive sweating, Reports fatigue, Denies flushing and Denies palpitations Hematologic/Lymphatic Hematologic/Lymphatic: Denies easy bruising Allergic/Immunologic Allergic/Immunologic: Denies urticaria, Denies throat swelling and Denies wheezing Patient History Medical History Fetus with encephalocele, antepartum History of drug use Psoriasis (~1999) Spontaneous vaginal delivery Surgical History Anesthesia Status post wrist surgery (~2002) [place] teeth extracted Family History Father Age: 70 Mental health problem Bipolar 1 disorder Grandfather Mental health problem Suicide Diabetes mellitus Myocardial infarction Grandmother Hypertension High cholesterol History of multiple miscarriages Kidney stones Brother Depression Grandmother Emphysema of lung Grandfather Diabetes mellitus Mother Toshia infection Depression Family/Other Breast cancer Family/Other Leukemia Substance Use Type: does not use Exam Narrative Exam Narrative: GENERAL: [35] year old patient appears stated age. Well-nourished, well-developed patient, obviously quite ill, pale and diaphoretic HEAD: Atraumatic. Normocephalic. EYES: Pale conjunctiva, pupils equal round and reactive. Extraocular motions intact. No scleral icterus. No injection or drainage. ENT: Nose without bleeding, purulent drainage. Throat without erythema, tonsillar hypertrophy or exudate. Airway patent. NECK: Trachea midline. Non tender CARDIOVASCULAR: tachycardic but regular rhythm without murmurs, gallops, or rubs. RESPIRATORY: Clear to auscultation. Breath sounds equal bilaterally. No wheezes, rales, or rhonchi. Increased work of breathing with minimal exertion PELVIC: significant bright red vaginal bleeding with active pooling. Hard to tell on exam but appears to be from laceration as opposed to vaginal source. Patient clearly needs OR and I elected not to do speculum exam due to concern for worsening the situation GASTROINTESTINAL: Abdomen soft, non-tender, nondistended. EXTREMITIES: No edema or joint tenderness. BACK: Nontender without deformity or crepitance. No flank tenderness. NEURO: AOx3. SKIN: No rash or erythema of visible areas Initial Vital Signs Initial Vital Signs: Vital Signs Temperature 99.2 F 09/24/20 17:40 Pulse Rate 104 H 09/24/20 17:40 Respiratory Rate 20 09/24/20 17:40 Blood Pressure 100/60 09/24/20 17:40 Pulse Oximetry 98 09/24/20 17:40 Course Orders Ordered: Acetaminophen (Acetaminophen 325 Mg Tablet) 650 mg PO Q6HR PRN PRN Reason: Fever/Mild Pain (1-3) Docusate Sodium (Docusate 250 Mg Capsule) 250 mg PO BID [facility] Last Admin: 09/24/20 22:18 Dose: 250 mg Documented by: MURTAZA Lactated Ringer's (Lactated Ringers) 1,000 mls @ 100 mls/hr IV CONT [facility] Last Admin: 09/24/20 22:10 Dose: 100 mls/hr Documented by: MURTAZA Ibuprofen (Ibuprofen 600 Mg Tablet) 600 mg PO Q6HR PRN PRN Reason: Fever/Mild Pain (1-3) Magnesium Hydroxide (Magnesium Hydroxide 30 Ml Udc) 30 ml PO DAILY PRN PRN Reason: Constipation Metoclopramide HCl (Metoclopramide 10 Mg/2 Ml Inj) 10 mg IV Q6HR PRN PRN Reason: Nausea And Vomiting Naloxone HCl (Naloxone 0.4 Mg/Ml Vial) 0.2 mg IV Q2MIN PRN PRN Reason: Opiate Reversal Ondansetron HCl (Ondansetron 4 Mg/2 Ml Inj) 4 mg IV Q6HR PRN PRN Reason: Nausea And Vomiting Discontinued Medications Acetaminophen (Acetaminophen 325 Mg Tablet) 650 mg PO PACUNOW PRN PRN Reason: Pain, Mild (1-3) Fentanyl (Fentanyl 100 Mcg/2 Ml Inj) 0 mcg IV Q5M PRN PRN Reason: Pain, Moderate (4-6) Sodium Chloride (Normal Saline 0.9%) 1,000 mls @ 1,000 mls/hr IV BOLUS ONE Stop: 09/24/20 19:14 Last Infusion: 09/24/20 19:14 Dose: 0 mls/hr Documented by: Admin: 09/24/20 18:18 Dose: 1,000 mls/hr Documented by: CNYTHIA Tranexamic Acid 1,000 mg/ (Sodium Chloride) 100 mls @ 400 mls/hr IV NOW ONE Stop: 09/24/20 18:39 Last Infusion: 09/24/20 19:13 Dose: 0 mls/hr Documented by: Admin: 09/24/20 18:48 Dose: 400 mls/hr Documented by: CYNTHIA Lactated Ringer's (Lactated Ringers) 1,000 mls @ 100 mls/hr IV CONT [facility]IR[facility] Last Admin: 09/24/20 20:27 Dose: 100 mls/hr Documented by: Infusion: 09/24/20 20:27 Dose: 100 mls/hr Documented by: Admin: 09/24/20 19:50 Dose: 100 mls/hr Documented by: HUGO Cefazolin Sodium/Dextrose (Ancef) 2 gm in 100 mls @ 200 mls/hr IV NOW ONE Stop: 09/24/20 19:52 Last Infusion: 09/24/20 20:10 Dose: 0 mls/hr Documented by: Admin: 09/24/20 20:00 Dose: 200 mls/hr Documented by: TREMAYNE Meperidine HCl (Meperidine 50 Mg/Ml Inj) 12.5 mg IV PACUNOW PRN PRN Reason: Mild pain or shivering Ondansetron HCl (Ondansetron 4 Mg/2 Ml Inj) 4 mg IV NOW ONE Stop: 09/24/20 21:15 Last Admin: 09/24/20 21:19 Dose: 4 mg Documented by: HUGO Consultations Consultation #1: Dr. Soares will come see patient in the ED, asks that we call the OR Crew Vital Signs Vital signs: Vital Signs - 8 hr 09/24/20 17:40 Temperature 99.2 F Pulse Rate 104 H Respiratory Rate 20 Blood Pressure 100/60 Pulse Oximetry 98 MDM - Female Genitourinary Lab Data Result diagrams: 09/25/20 04:45 09/24/20 18:14 Labs: Lab Results 09/24/20 09/24/20 09/24/20 Range/Units 18:14 18:14 18:14 WBC 9.9 (4.5-11.0) X10^3/uL RBC 3.43 L (4.0-5.2) X10^6/uL Hgb 11.7 L (12.0-16.0) g/dL Hct 33.7 L (36-46) % MCV 98.3 (80-100) fL MCH 34.3 H (26-34) PG MCHC 34.9 (30-36) % RDW 12.1 (11.6-14.8) % Plt Count 373 (150-400) X10^3/uL Neut % (Auto) 56.7 (50-75) % Lymph % (Auto) 33.2 (25-40) % [place] % (Auto) 6.6 (3-14) % Eos % (Auto) 2.6 (2-4) % Baso % (Auto) 0.9 (0-2) % Neut # (Auto) 5600 (4981-7736) /uL Lymph # (Auto) 3300 (5222-8391) /uL [place] # (Auto) 700 (0-900) /uL Eos # (Auto) 300 (0-450) /uL Baso # (Auto) 100 (0-100) /uL PT 11.4 (10.1-12.7) SECONDS INR 1.0 (0.9-1.3) APTT 28 (26.4-36.2) SECONDS Sodium 137 (137-145) mmol/L Potassium 3.4 (3.4-5.1) mmol/L Chloride 106 (98-107) mmol/L Carbon Dioxide 25 (22-32) mmol/L BUN 17 (7-17) mg/dL Creatinine 0.53 (0.52-1.04) mg/dL Estimated GFR > 60.0 (>60) mL/min BUN/Creatinine Ratio 32.1 H (6-22) Glucose 123 H (70-100) mg/dL Calcium 8.9 (8.4-10.2) mg/dL Total Bilirubin 0.1 L (0.2-1.3) mg/dL AST 24 (14-36) IU/L ALT 15 (<35) IU/L Alkaline Phosphatase 94 (38-126) U/L Total Protein 6.4 (6.3-8.2) g/dL Albumin 3.8 (3.5-5.0) g/dL Globulin 2.6 (1.7-4.1) g/dL Albumin/Globulin Ratio 1.5 (1.0-2.8) HCG, Quant 26.3 mIU/mL SARS-CoV-2 (PCR) (Negative) Blood Type Antibody Screen Crossmatch 09/24/20 09/24/20 Range/Units 18:14 18:45 WBC (4.5-11.0) X10^3/uL RBC (4.0-5.2) X10^6/uL Hgb (12.0-16.0) g/dL Hct (36-46) % MCV (80-100) fL MCH (26-34) PG MCHC (30-36) % RDW (11.6-14.8) % Plt Count (150-400) X10^3/uL Neut % (Auto) (50-75) % Lymph % (Auto) (25-40) % [place] % (Auto) (3-14) % Eos % (Auto) (2-4) % Baso % (Auto) (0-2) % Neut # (Auto) (6763-6067) /uL Lymph # (Auto) (9121-0750) /uL [place] # (Auto) (0-900) /uL Eos # (Auto) (0-450) /uL Baso # (Auto) (0-100) /uL PT (10.1-12.7) SECONDS INR (0.9-1.3) APTT (26.4-36.2) SECONDS Sodium (137-145) mmol/L Potassium (3.4-5.1) mmol/L Chloride (98-107) mmol/L Carbon Dioxide (22-32) mmol/L BUN (7-17) mg/dL Creatinine (0.52-1.04) mg/dL Estimated GFR (>60) mL/min BUN/Creatinine Ratio (6-22) Glucose (70-100) mg/dL Calcium (8.4-10.2) mg/dL Total Bilirubin (0.2-1.3) mg/dL AST (14-36) IU/L ALT (<35) IU/L Alkaline Phosphatase (38-126) U/L Total Protein (6.3-8.2) g/dL Albumin (3.5-5.0) g/dL Globulin (1.7-4.1) g/dL Albumin/Globulin Ratio (1.0-2.8) HCG, Quant mIU/mL SARS-CoV-2 (PCR) Negative (Negative) Blood Type A Positive Antibody Screen Negative Crossmatch See Detail Discharge Plan Departure Patient Disposition: Admitted to Surgery Clinical Impression: Vaginal bleeding Admit Date/Time: 09/24/20 18:56 Admit Provider: Davina Soares
[2020-09-24 18:31] LABS: Prothrombin Time 11.4 SECONDS (10.1-12.7)
[2020-09-24 18:34] LABS: PTT Partial Thromboplastin Tim 28 SECONDS (26.4-36.2)
[2020-09-24 18:35] LABS: Alanine Aminotransferase 15 IU/L (<35); Albumin 3.8 g/dL (3.5-5.0); Albumin Globulin Ratio 1.5 (1.0-2.8); Alkaline Phosphatase 94 U/L (38-126); Aspartate Aminotransferase 24 IU/L (14-36); BUN Creatinine Ratio 32.1 (6-22); Bilirubin Total 0.1 mg/dL (0.2-1.3); Blood Urea Nitrogen 17 mg/dL (7-17); Calcium 8.9 mg/dL (8.4-10.2); Carbon Dioxide 25 mmol/L (22-32); Chloride 106 mmol/L (98-107); Estimated Glomerular Filt Rate > 60.0 mL/min (>60); Globulin 2.6 g/dL (1.7-4.1); Glucose 123 mg/dL (70-100); HEMOLYSIS < 15 (0-50); Potassium 3.4 mmol/L (3.4-5.1); Sodium 137 mmol/L (137-145); Total Protein 6.4 g/dL (6.3-8.2)
[2020-09-24] MEDS: TRANEXAMIC ACID 1,000 MG in SODIUM CHLORIDE 0.9% 100 ML 400 ML IV (18:48)
[2020-09-24 18:52] LABS: HCG Quantitative /Beta subunit 26.3 mIU/mL
--- NOTE | 2020-09-24 18:53 | PC.NURSE ---
pt c/o feeling like she is going to pass out, layed pt's head flat, and placed stretcher in reverse trendelenberg, with oxygen on pt taking deep breaths states feels better.
--- NOTE | 2020-09-24 18:55 | PC.NURSE ---
assisted dr gomez with vaginal exam, no speculum used. appears pt has clots to area, bright red blood draining from vaginal area. provided ice to patient for comfort.
--- NOTE | 2020-09-24 19:09 | PC.NURSE ---
Updated pt's father per her request.
[2020-09-24 19:10] LABS: COVID19 -Nasal RAPID Negative (Negative)
--- NOTE | 2020-09-24 19:16 | PC.NURSE ---
pt's bp improving once arrived to OR 86/55. pt color improving. pt reports she is feeling better.
--- NOTE | 2020-09-24 19:16 | PM.GYNHP.1 ---
History of Present Illness History of Present Illness Reason for admission: vaginal bleeding Narrative: Donya Johns is a 35 year old female 3 para 1 who presented to the ER with bright red vaginal bleeding. Patient reports that earlier this morning she had 1 gush fluid that filled a pad. It then slowed down significantly. Then she had a large amount of bleeding and got into a shower to cleanup and saw some stitches in the bottom of the shower. She has felt lightheaded and dizzy. She had blood pressures that dropped to 70/30 in the ED. [facility] Medical History (Updated 09/24/20 @ 18:42 by Francisco Gutiérrez DO) Fetus with encephalocele, antepartum History of drug use Psoriasis (~1999) Spontaneous vaginal delivery Surgical History (Updated 09/24/20 @ 19:17 by Davina Soares MD) Anesthesia Status post wrist surgery (~2002) [place] teeth extracted Family History (Updated 02/18/20 @ 15:57 by Tresa Paulino RN) Father Age: 70 Mental health problem Bipolar 1 disorder Grandfather Mental health problem Suicide Diabetes mellitus Myocardial infarction Grandmother Hypertension High cholesterol History of multiple miscarriages Kidney stones Brother Depression Grandmother Emphysema of lung Grandfather Diabetes mellitus Mother Toshia infection Depression Family/Other Breast cancer Family/Other Leukemia Social History marital status: unmarried,living together household members: significant other 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) current occupational exposures/hazards: Yes special kathleen needs: No Smoking Status: Former smoker second hand exposure: Yes alcohol intake: former (pre-) substance use type: former substance user Meds Home Medications and Allergies Home Medications Medication Instructions Recorded Confirmed Type folic acid 400 mcg tablet 0.4 mg PO DAILY 02/18/20 09/15/20 History prenat.vits,julianna,[id number]-[id number] 1 tab PO DAILY 02/18/20 09/15/20 History Allergies Allergy/AdvReac Type Severity Reaction Status Date / Time No Known Drug Allergies Allergy Verified 09/24/20 17:40 Exam Vital Signs (past 8 hours): - 09/24/20 17:40 09/24/20 18:17 09/24/20 18:30 Temperature 99.2 F Pulse Rate 104 H 80 103 H Respiratory Rate 20 16 20 Blood Pressure 100/60 Pulse Oximetry 98 99 100 09/24/20 18:36 09/24/20 18:38 09/24/20 18:45 Temperature Pulse Rate 73 81 78 Respiratory Rate 15 15 12 Blood Pressure 70/44 L 78/52 L 87/57 L Pulse Oximetry 100 100 100 09/24/20 18:50 09/24/20 18:56 09/24/20 18:58 Temperature Pulse Rate 84 72 64 Respiratory Rate 21 20 19 Blood Pressure 89/55 L 68/37 L 62/32 L Pulse Oximetry 100 100 100 09/24/20 18:59 09/24/20 19:00 Temperature Pulse Rate 64 Respiratory Rate 21 Blood Pressure 69/40 L Pulse Oximetry 100 Const General: cooperative, well developed, in distress, diaphoretic and ill appearing Nutritional Appearance: well nourished Orientation: alert and oriented x3 HENMT Mouth: mucous membranes abnormal Resp Effort & Inspection: normal respiratory effort and able to speak in complete sentences Auscultation: clear to auscultation bilaterally Cardio Rate: tachycardic Rhythm: regular rhythm Heart Sounds: S1 normal and S2 normal GI Inspection: normal to inspection Palpation: soft and no hepatosplenomegaly Auscultation: normal bowel sounds External Female Exam: external swelling Speculum Exam - Vagina: laceration, vaginal bleeding and swelling Speculum Exam - Cervix: cervical os open Bimanual Exam- Vagina & Uterus: enlarged OB/External & Speculum: deferred, cervical os open and vaginal bleeding Skin General: pallor Neuro General: patient alert, patient awake and patient oriented x3 Objective Labs Result Diagrams: 09/24/20 18:14 09/24/20 18:14 Labs: Laboratory Results - last 24 hr 09/24/20 09/24/20 09/24/20 18:14 18:14 18:14 WBC 9.9 RBC 3.43 L Hgb 11.7 L Hct 33.7 L MCV 98.3 MCH 34.3 H MCHC 34.9 RDW 12.1 Plt Count 373 Neut % (Auto) 56.7 Lymph % (Auto) 33.2 [place] % (Auto) 6.6 Eos % (Auto) 2.6 Baso % (Auto) 0.9 Neut # (Auto) 5600 Lymph # (Auto) 3300 [place] # (Auto) 700 Eos # (Auto) 300 Baso # (Auto) 100 PT 11.4 INR 1.0 APTT 28 Sodium 137 Potassium 3.4 Chloride 106 Carbon Dioxide 25 BUN 17 Creatinine 0.53 Estimated GFR > 60.0 BUN/Creatinine Ratio 32.1 H Glucose 123 H Calcium 8.9 Total Bilirubin 0.1 L AST 24 ALT 15 Alkaline Phosphatase 94 Total Protein 6.4 Albumin 3.8 Globulin 2.6 Albumin/Globulin Ratio 1.5 HCG, Quant 26.3 SARS-CoV-2 (PCR) Crossmatch 09/24/20 09/24/20 18:14 18:45 WBC RBC Hgb Hct MCV MCH MCHC RDW Plt Count Neut % (Auto) Lymph % (Auto) [place] % (Auto) Eos % (Auto) Baso % (Auto) Neut # (Auto) Lymph # (Auto) [place] # (Auto) Eos # (Auto) Baso # (Auto) PT INR APTT Sodium Potassium Chloride Carbon Dioxide BUN Creatinine Estimated GFR BUN/Creatinine Ratio Glucose Calcium Total Bilirubin AST ALT Alkaline Phosphatase Total Protein Albumin Globulin Albumin/Globulin Ratio HCG, Quant SARS-CoV-2 (PCR) Negative Crossmatch See Detail Assessment & Plan Assessment and plan (1) Vaginal bleeding: Status: Acute Assessment & Plan narrative: Assessment: 35-year-old 3 para 1 021 with brisk vaginal bleeding 9 days post a vaginal delivery with a second-degree laceration Plan: To the operating room for an exam under anesthesia and possible suction D and C versus ligation of bleeding The risks, benefits, and alternatives to the procedure were explained to the patient. The risks including bleeding and infection. She understands these risks and agrees to proceed. A full par Q was held and consent form was signed. COVID-19 COVID-19 status: Negative Result date/Date tested (Pos, Neg/Pending): 09/24/20 Time Spent With Patient Time with patient: less than 15 minutes
--- NOTE | 2020-09-24 19:29 | SUR.OPER ---
Lithotomy on padded OR bed, head on pillow, arms secured on padded arm boards at <90 degrees abduction. Legs secured in padded yellow fins stirrups.
[2020-09-24] MEDS: LACTATED RINGERS 1,000 ML 100 ML IV ×3 (19:50→22:10)
[2020-09-24] MEDS: CEFAZOLIN 2 GM/100 ML FROZ.PIGGY IV (20:00)
--- NOTE | 2020-09-24 20:17 | PM.GYNOP.1 ---
Operative Date/Time/Diagnoses Date of procedure: 09/24/20 Time of procedure: 20:17 Pre-op diagnosis: Brisk vaginal bleeding 9 days Post-op diagnosis: same Procedure & Clinicians Procedure: Procedures Operation Date: 09/24/20 19:30 Actual Procedures Side Surgeon p Ligation of bleeder, reapproximation of 2nd degree laceration Davina Soares MD Indications: Brisk vaginal bleeding 9 days Low blood pressure Surgeon: Davina Soares Anesthesia Type: General Operative Notes Findings: Second-degree vaginal laceration open with arterial bleeder Closure Type: primary Specimen(s): none Applied: catheter (In and out) Estimated blood loss (mL): 50 Blood products transfused: none Procedure in detail: After informed consent was obtained, the patient was taken to the operating room where she was placed in the dorsal supine position. After adequate general endotracheal anesthesia was achieved, she was placed in the dorsal lithotomy position. Upon removing the pressure dressings, there was a large gush of clot and blood of approximately 300 cc onto the floor. The patient was then prepped and draped in the usual sterile fashion. An in and out catheterization was performed with 100 cc of clear yellow urine. An examination under anesthesia was performed. The perineum was intact. Approximately 3 cm into the vagina on the posterior wall, there was an apparent arterial bleeder. A piece of chromic suture was seen loose. The suture was removed. Using 2 0 Vicryl the second-degree laceration was repaired interlocking sutures. Hemostasis was achieved. The area was observed for approximately 15 minutes to ensure hemostasis. The area was irrigated with warm normal saline. Sponge, lap, and instrument counts were correct x2. The patient tolerated the procedure well, and was taken to PACU in stable condition. Complications: none Post-operative Condition: stable Disposition: PACU Plan for aftercare: To acute care after recovery
[2020-09-24 20:54] LABS: Hemoglobin 6.6 g/dL (12.0-16.0)
[2020-09-24 20:55] LABS: Hematocrit 20.5 % (36-46)
[2020-09-24] MEDS: ONDANSETRON 4 MG/2 ML INJ IV (21:19)
[2020-09-24] MEDS: DOCUSATE 250 MG CAPSULE PO (22:18)
--- NOTE | 2020-09-24 22:33 | PC.NURSE ---
Pt. admitted from PACU for vaginal bleed. Pt. is 9 days . Pt. arrived via stretcher, able to slide from stretcher to bed. Pt. felt a little woozy, HR is SR with hypotension 85/54 on arrival, no c/o pain just soreness in perineal area. Vaginal pad with small bloody drainage. Oriented pt. to call light and bed control. Instructed not to get OOB due to hypotension. Taking clear liquids without c/o nausea. Continue post op vs and monitor vaginal bleeding.
[2020-09-25] VITALS (11 sets, daily range): BP systolic 83–105; BP diastolic 50–59; PULSE 74–91; RESP 14–20; TEMP 36.2–36.9; O2SAT 99–100
--- NOTE | 2020-09-25 04:20 | PC.NURSE ---
Addendum entered by Yasmine Rodriguez R.N. 09/25/20 06:36: 0635- Patient bladder scanned for 452ml. Discussed attempting the bed carter again but patient did not feel this would be successful. Patient declines a catheter of any kind at this time. Discussed getting blood started and then sitting up to try and get to the BSC provided she is not symptomatic with her vitals. Patient wants to try this approach before a catheter. Blood consent signed. Order for two units PRBC from DR. Soares. See labs for H/H. Will monitor. Original Note: 0415- Patient called stating she needed to void. Patient sat at the side of the bed with assist of two. She said she initially felt fine. It was noted that her heart rate was climbing to a high of 125. Patient stated she was feeling faint. BP 74/47 mean 55. Previous BP 85/52 mean 63. Patient assisted back to supine and assisted onto the bed carter. Patient did not loose consciousness, did not become diaphoretic and was verbalizing throughout this event. Am labs not drawn yet. No obvious bleeding noted on william pad and patient states she does not feel pressure in her perineum. Patient rates her pain at a 1. Once in lying position Patient heart rate back to NSR at 71. Will monitor closely.
[2020-09-25 05:45] LABS: Basophils Absolute Auto 0 /uL (0-100); Basophils Percent Auto 0.1 % (0-2); Eosinophils Absolute Auto 0 /uL (0-450); Lymphocytes Absolute Auto 900 /uL (1100-4500); Lymphocytes Percent Auto 8.8 % (25-40); Mean Corpuscular HGB Conc 33.3 % (30-36); Mean Corpuscular Hemoglobin 33.2 PG (26-34); Mean Corpuscular Volume 99.9 fL (80-100); Monocytes Absolute Auto 100 /uL (0-900); Monocytes Percent Auto 0.9 % (3-14); Neutrophils Absolute Auto 8800 /uL (1500-7000); Neutrophils Percent Auto 90.2 % (50-75); Platelet Count 236 X10^3/uL (150-400); Red Blood Cell Count 1.93 X10^6/uL (4.0-5.2); Red Cell Distribution Width 12.4 % (11.6-14.8); White Blood Cell Count 9.8 X10^3/uL (4.5-11.0)
[2020-09-25 05:56] LABS: Hemoglobin 6.4 g/dL (12.0-16.0)
[2020-09-25 05:57] LABS: Add Manual Diff / Slide Review SLIDE REVIEW; Hematocrit 19.3 % (36-46)
[2020-09-25 06:47] LABS: RBC Morphology Normal Morphology
[2020-09-25] MEDS: IBUPROFEN 600 MG TABLET PO (08:59)
--- NOTE | 2020-09-25 12:01 | CM.DANOTE ---
DCP: Case received, EMR reviewed and met with patient. Introduced self and role. Was able to obtain information from patient regarding her baseline activity information and current living situation. DCP assessment completed with information currently available. Patient is a 35 year old female who admitted yesterday afternoon to the care of the hospitalist team. PCP: Dr. Rose. DIRECTOR OF COLLECTIONS: Dr. Soares. Payer: confirmed: Nita OBRIEN. Patient came to the hospital via family vehicle secondary to having an increase in vaginal bleeding. Patient had her baby approximately 9 days ago, and noted excessive bleeding. Patient was diagnosed with vaginal wall arteral bleeding. She had surgery yesterday, and also a post laceration repair. Patient also is getting blood transfusion secondary to decreased H&H. Met with patient in her room. She is alert and oriented, pleasant. Stated that her baby is home being cared for by baby's father (patient's life partner), and other family members. Confirmed with patient that she resides here in [place] with her life partner, Eugene Duarte. Patient is independent, and is employed at [employer] in [facility]. P: DCP to continue to follow. She is getting blood transfusion today. She should be able to go home when she is medically stable. Eugenia Medina RN/[employer]
--- NOTE | 2020-09-25 12:08 | PM.DS.1 ---
History of Present Illness History of Present Illness Date Patient Seen: 09/25/20 Time Patient Seen: 12:08 Date of Onset of Symptoms: 09/24/20 Chief complaint: States gave 9 days ago, bleeding Narrative: Patient is a 35-year-old 3 para 1 0 2 1 10 days from a vaginal delivery with a second-degree laceration. She presented to the emergency department last evening with brisk vaginal bleeding. She was found to have an arterial bleeder from the second-degree laceration. The bleeder was ligated and the repair was reapproximated. Discharge Providers Provider Date of admission: 09/24/20 18:56 Discharge Date: 09/25/20 Primary care physician: Jocy Rose MD Discharge provider: Davina Soares MD Summary Hospital Course Discharge Diagnosis: bleed Ligation of arterial bleeder Reapproximation of second-degree laceration Symptomatic blood loss anemia Blood transfusion Hospital Course: Patient presented to the emergency department with heavy vaginal bleeding. This had happened earlier in the day with a large amount of blood but then stopped. The 2nd time it happened it did not stop bleeding she got into the shower and saw that the bottom of the tub was completely covered in blood, as was the toilet bowl. Her significant other brought her to the emergency department. She was found to have an arterial bleeder from the second-degree laceration. She was taken to the operating room where the bleeder was ligated and the second-degree laceration was reapproximated. She had several episodes where she dropped her blood pressure during the surgery. This stabilized with IV fluids. Her hematocrit last evening was 20. This morning her hematocrit was 19.3 but she was orthostatic. A decision was made to transfuse 2 units of packed red blood cells. The patient is feeling much better. She is sitting up in bed. She has no lightheaded or dizziness. Status at Discharge Cognitive/behavioral status at discharge: oriented Functional status at discharge: independent ambulation Overall status at discharge: patient is progressing back to baseline Time Spent with Patient Time spent: Less than 30 minutes Exam Vital Signs (past 8 hours): - 09/25/20 04:35 09/25/20 07:16 09/25/20 07:35 Temperature 98.1 F 97.7 F Pulse Rate 84 80 89 Respiratory Rate 18 19 18 Blood Pressure 99/58 L 97/56 L 98/55 L Pulse Oximetry 100 09/25/20 07:39 09/25/20 09:14 09/25/20 09:21 Temperature 97.7 F 98.0 F 98 F Pulse Rate 89 87 87 Respiratory Rate 18 20 20 Blood Pressure 98/55 L 105/59 L 105/59 L Pulse Oximetry 99 09/25/20 09:36 09/25/20 11:40 09/25/20 11:52 Temperature 98.4 F 98.2 F 98.2 F Pulse Rate 91 H 74 74 Respiratory Rate 19 18 18 Blood Pressure 99/58 L 104/55 L 104/55 L Pulse Oximetry 99 Oxygen Delivery Method Room Air Oxygen Flow Rate 0 Narrative Exam Narrative: Patient is sitting up in bed, no acute distress Lungs: Clear to auscultation bilaterally Cardiovascular: Regular rate and rhythm Abdomen: Soft and flat. Good bowel sounds. Perineum: Dry Extremities: Negative Homans, no edema Objective Labs Result Diagrams: 09/25/20 04:45 09/24/20 18:14 Labs: Laboratory Results - last 24 hr 09/24/20 09/24/20 09/24/20 18:14 18:14 18:14 WBC 9.9 RBC 3.43 L Hgb 11.7 L Hct 33.7 L MCV 98.3 MCH 34.3 H MCHC 34.9 RDW 12.1 Plt Count 373 Neut % (Auto) 56.7 Lymph % (Auto) 33.2 [place] % (Auto) 6.6 Eos % (Auto) 2.6 Baso % (Auto) 0.9 Neut # (Auto) 5600 Lymph # (Auto) 3300 [place] # (Auto) 700 Eos # (Auto) 300 Baso # (Auto) 100 RBC Morphology PT 11.4 INR 1.0 APTT 28 Sodium 137 Potassium 3.4 Chloride 106 Carbon Dioxide 25 BUN 17 Creatinine 0.53 Estimated GFR > 60.0 BUN/Creatinine Ratio 32.1 H Glucose 123 H Calcium 8.9 Total Bilirubin 0.1 L AST 24 ALT 15 Alkaline Phosphatase 94 Total Protein 6.4 Albumin 3.8 Globulin 2.6 Albumin/Globulin Ratio 1.5 HCG, Quant 26.3 Nasal Screen MRSA (PCR) SARS-CoV-2 (PCR) Blood Type Antibody Screen Crossmatch 09/24/20 09/24/20 09/24/20 18:14 18:45 20:45 WBC RBC Hgb 6.6 L* Hct 20.5 L* MCV MCH MCHC RDW Plt Count Neut % (Auto) Lymph % (Auto) [place] % (Auto) Eos % (Auto) Baso % (Auto) Neut # (Auto) Lymph # (Auto) [place] # (Auto) Eos # (Auto) Baso # (Auto) RBC Morphology PT INR APTT Sodium Potassium Chloride Carbon Dioxide BUN Creatinine Estimated GFR BUN/Creatinine Ratio Glucose Calcium Total Bilirubin AST ALT Alkaline Phosphatase Total Protein Albumin Globulin Albumin/Globulin Ratio HCG, Quant Nasal Screen MRSA (PCR) SARS-CoV-2 (PCR) Negative Blood Type A Positive Antibody Screen Negative Crossmatch See Detail 09/24/20 09/25/20 21:45 04:45 WBC 9.8 RBC 1.93 L Hgb 6.4 L* Hct 19.3 L* MCV 99.9 MCH 33.2 MCHC 33.3 RDW 12.4 Plt Count 236 Neut % (Auto) 90.2 H D Lymph % (Auto) 8.8 L D [place] % (Auto) 0.9 L Eos % (Auto) 0.0 L Baso % (Auto) 0.1 Neut # (Auto) 8800 H Lymph # (Auto) 900 L [place] # (Auto) 100 Eos # (Auto) 0 Baso # (Auto) 0 RBC Morphology Normal morphology PT INR APTT Sodium Potassium Chloride Carbon Dioxide BUN Creatinine Estimated GFR BUN/Creatinine Ratio Glucose Calcium Total Bilirubin AST ALT Alkaline Phosphatase Total Protein Albumin Globulin Albumin/Globulin Ratio HCG, Quant Nasal Screen MRSA (PCR) Negative for mrsa SARS-CoV-2 (PCR) Blood Type Antibody Screen Crossmatch [facility] Medical History Fetus with encephalocele, antepartum History of drug use Psoriasis (~1999) Spontaneous vaginal delivery Surgical History Anesthesia Status post wrist surgery (~2002) [place] teeth extracted Family History Father Age: 70 Mental health problem Bipolar 1 disorder Grandfather Mental health problem Suicide Diabetes mellitus Myocardial infarction Grandmother Hypertension High cholesterol History of multiple miscarriages Kidney stones Brother Depression Grandmother Emphysema of lung Grandfather Diabetes mellitus Mother Toshia infection Depression Family/Other Breast cancer Family/Other Leukemia Social History marital status: unmarried,living together household members: significant other occupational status: employed ([employer]) current occupational exposures/hazards: Yes special kathleen needs: No Smoking Status: Former smoker second hand exposure: Yes alcohol intake: former substance use type: former substance user Discharge Assessment & Plan Assessment and Plan Assessment: 35-year-old 3 para 1021 with a bleed from an arterial bleeder from the second-degree laceration. Patient doing much better after blood transfusion Plan of Treatment: Discharge to home Follow-up Thursday October 01, [address] Rose Patient to call with fever, chills, or bleeding vaginally if she is soaking a regular pad in less than an hour She should pump or feed the baby frequently Add iron and stool softeners Continue vitamins Discharge Plan Discharge Plan Patient Disposition: Home Provider Discharge Comment: Call with fever, chills, or bleeding if she soaks through a regular pad in less than an hour Add iron once a day Continue vitamins Use MiraLax as needed Pump or feed baby frequently Discharge orders & Medications Prescriptions: Continued prenat.vits,julianna,[id number] Tablet 1 tab PO DAILY RF: 0 folic acid 400 mcg tablet 0.4 mg PO DAILY RF: 0 Follow up/Referrals: Jocy Rose MD [Primary Care Provider] - 10/01/20 (Follow-up with Dr. Verma when she brings the baby and for an appointment on Thursday October 01, 2020) Diet/Activity/Treatments Diet: Regular Activity: Just activities of daily living over the next 2 weeks Skin/Wound/Dressing Care Report to your healthcare provider any signs of infection, such as:: chills, fever, increased pain and unusual drainage Visit Report/Discharge Packet Stand Alone Forms: Surgery Discharge Discharge Data Primary Care Provider: Jocy Rose Attending Provider: Davina Soares VTE Deep Vein Thrombosis/Pulmonary Embolism Present on Admission: Yes
--- NOTE | 2020-09-25 13:29 | PC.NURSE ---
Day Shift/Discharge Note Patient able to void via BSC after 1st unit of PRBCs transfused, reported mild dizziness but was able to transfer without issue, reported feeling a lot better than earlier. HR up to 120s with activity but quickly resolved with rest. Spotting noted on william-pad. Denies pain. 2nd unit PRBCs transfused without issue. Denies any dizziness after the second unit. Discharged to home with SO via wheelchair. Written and verbal d/c instructions given on hemorrhage and blood transfusion, instructedon follow-up and to drink plenty of fluids. All questions answered.
== END 2020-09-25 13:30 | disposition home or self-care (01) | DRG 769 ==
LOC: ED 18:42 → AC 19:22 → ICU 09-25 10:29 → AC 09-26 10:54 → ICU 09-27 15:15
PROVIDERS: Admitting Provider Obstetrics & Gynecology; Emergency Provider Emergency Medicine; PCP Family Medicine; Referring Provider Emergency Medicine; Visit Provider Obstetrics & Gynecology
PROC: 0KQM0ZZ Repair Perineum Muscle, Open Approach (ICD-10-PCS; CPT 58120; principal; 2020-09-24 19:30)
DX: O90.1 Disruption of perineal obstetric wound (principal); D62 Acute posthemorrhagic anemia; R58 Hemorrhage, not elsewhere classified; Z20.822 Contact with and (suspected) exposure to COVID-19
CPT/HCPCS: 36415; 36430; 80053; 84702; 85014; 85018; 85025; 85610; 85730; 86850; 86900; 86901; 87635; 87797; 96365; 96375; 99283; 99285; C9803; G0378; P9016; J0690; J1100; J2405; J2704; J3010

== ENCOUNTER 2020-09-30 10:50 | Emergency (ER) | payer OTHER, SELFPAY ==
[2020-09-24 21:56] VITALS: BMI 27.3
[2020-09-30 11:07] VITALS: BP 123/60; PULSE 88; RESP 18; TEMP 36.9; O2SAT 100; BMI 26.7
--- NOTE | 2020-09-30 11:14 | ED_ITS ---
HPI - Female Genitourinary <MIRLANDE Lopez - Last Filed: 09/30/20 13:05> General Chief complaint: Urogenital-Female Stated complaint: vaginal bleeding Time Seen by Provider: 09/30/20 10:51 Source: patient Mode of arrival: Wheelchair Limitations: no limitations History of Present Illness HPI Narrative: This is a 35 year female, on 09/15/[address] Rose and had a grade 2 perineal laceration that was required repair with sutures and had severe arterial vaginal bleeding 9 day post delivery and she was taken to OR for an arterial bleed repair by Dr. Soares present to ED with recurring vaginal bleed which started around at 1045 (45 min prior) this morning. She received 2 units of transfusion during last visit and stayed overnight after the OR. This occurred after she nursed her while sitting on a couch. When she stood up, had noticed vaginal bleeding. She denies chest pain, dyspnea, discomfort in perineum, fever, chills, nausea or vomiting. Patient is currently taking vitamins and iron pill. Patient reports lochia has been decreased and has been only spotting yesterday. Related Data Home Medications Medication Instructions Recorded Confirmed folic acid 400 mcg tablet 0.4 mg PO DAILY 02/18/20 09/25/20 prenat.vits,julianna,[id number] 1 tab PO DAILY 02/18/20 09/25/20 Allergies Allergy/AdvReac Type Severity Reaction Status Date / Time No Known Drug Allergies Allergy Verified 09/24/20 19:30 Review of Systems <MIRLANDE Lopez - Last Filed: 09/30/20 13:05> Review of Systems Narrative: General: Denies fever, chills, fatigue, malaise, sweats. HEENT: Denies sinus pain, ear pain, sore throat, difficulty swallowing, dizziness. Respiratory: Denies dyspnea, cough, wheezing, hemoptysis, sputum. Cardiovascular: Denies chest pain, palpitations, orthopnea, edema. Gastrointestinal: Denies nausea, vomiting, abdominal pain, diarrhea, constipation, melena. : see HPI Musculoskeletal: Denies weakness, joint pain or bony pain. Skin: Denies rash, skin lesions, or other. Neurologic: Denies weakness, headache, numbness, change in speech, confusion, seizures, incoordination. Psychiatric: No concerning psychosocial issues. 12-point review of systems is negative except for those stated above. Patient History <MIRLANDE Lopez - Last Filed: 09/30/20 13:05> Medical History Fetus with encephalocele, antepartum History of drug use Psoriasis (~1999) Spontaneous vaginal delivery Surgical History Anesthesia Status post wrist surgery (~2002) [place] teeth extracted Family History Father Age: 70 Mental health problem Bipolar 1 disorder Grandfather Mental health problem Suicide Diabetes mellitus Myocardial infarction Grandmother Hypertension High cholesterol History of multiple miscarriages Kidney stones Brother Depression Grandmother Emphysema of lung Grandfather Diabetes mellitus Mother Toshia infection Depression Family/Other Breast cancer Family/Other Leukemia Substance Use Type: does not use Exam <MIRLANDE Lopez - Last Filed: 09/30/20 13:05> Narrative Exam Narrative: GEN: Alert, oriented x 3, well nourished, and in no acute distress, but appears to be pale. Head: Normal cephalic, atraumatic. No scalp or temporal tenderness, palpable mass or rash. EYES: Pupils are equal, round, and reactive to light and accommodation. Extraocular muscles are intact bilaterally. There is no subconjunctival hemorrhage, exudate and sclera non-icteric. ENT: Hearing grossly intact. Mucous membrane moist, no mucosal lesion. Throat without erythema, tonsillar hypertrophy or exudate. Uvula in midline, airway patent. Neck: Trachea in midline. No JVD, non-tender without lymphadenopathy. No masses or thyroid megaly. Supple, non-tender and no meningeal signs. CARDIAC: Normal regular rate and rhythm without murmurs, gallops, or rubs. No chest wall tenderness. No peripheral edema, cyanosis or pallor. Capillary refill is less than 2 seconds. RESPIRATORY: Lungs are clear to auscultate bilaterally. No cough, wheezes, rales, or rhonchi. No stridor, respiratory distress, increase work of breathing, or accessary muscle used. ABD: Abdomen soft, nontender and non-distended. No guarding or rebound tenderness to palpate. Bowel sounds are normal in all 4 quadrants. There is no palpable masses or organomegaly. EXT: Full painless ROM of all extremities with no loss of sensation, strength, effusion or edema. SKIN: Warm, dry, normal color for patient. No erythema, lesions or rash over visible areas. BACK: Nontender without deformity or crepitance. No flank tenderness. NEUROLOGICAL: Alert and oriented to place, time and person. Sensation and motor function intact bilaterally. No facial droops, dysphasia. PSYCHIATRIC: Good judgement and reason, without hallucinations, abnormal affect or abnormal behaviors during the examination. Patient is not suicidal. Initial Vital Signs Initial Vital Signs: Vital Signs Temperature 98.5 F 09/30/20 11:07 Pulse Rate 88 09/30/20 11:07 Respiratory Rate 18 09/30/20 11:07 Blood Pressure 123/60 09/30/20 11:07 Pulse Oximetry 100 09/30/20 11:07 External Female Exam: no erythema, no external swelling and other (sutures intact in posterior vaginal. Large clot in peripad. No active ble) Other: I deferred bimanual exam, speculum exam with concern for opening the internal sutures. <Lety Muro DO - Last Filed: 10/01/20 10:13> Initial Vital Signs Initial Vital Signs: Vital Signs Temperature 98.5 F 09/30/20 11:07 Pulse Rate 88 09/30/20 11:07 Respiratory Rate 18 09/30/20 11:07 Blood Pressure 123/60 09/30/20 11:07 Pulse Oximetry 100 09/30/20 11:07 Scores <MIRLANDE Lopez - Last Filed: 09/30/20 13:05> GCS Vivek coma scale eye opening: Spontaneous Vivek coma scale verbal response: Orientated [place] coma scale motor response: Obey commands [place] coma scale total score: 15 Course <MIRLANDE Lopez - Last Filed: 09/30/20 13:05> Orders Ordered: Discontinued Medications Sodium Chloride (Normal Saline 0.9%) 1,000 mls @ 125 mls/hr IV CONT SHIRIN Last Admin: 09/30/20 11:20 Dose: 125 mls/hr Documented by: RONN Consultations Consultation #1: Consulted Dr. Colbert who is on-call for Ob for recurring vaginal bleeding who returned to ED after surgical repair done on 09/24/[address] Soares. She will come into ED to assess the patient. Time: 11:15 Consultation #2: Dr. Colbert at bedside assessing the patient and I appreciate her time and consultation. Plan is to have patient ambulate and see if bleeding increases. Hgb/Hct improved since the discharge from hospital on 09/25/20. Time: 11:49 Vital Signs Vital signs: Vital Signs - 8 hr 09/30/20 11:07 09/30/20 11:41 09/30/20 11:43 Temperature 98.5 F Pulse Rate 88 81 80 Respiratory Rate 18 Blood Pressure 123/60 96/55 L Pulse Oximetry 100 99 99 09/30/20 11:53 09/30/20 12:00 09/30/20 12:30 Temperature Pulse Rate 96 H 73 76 Respiratory Rate Blood Pressure 107/57 L Pulse Oximetry 100 99 99 <Lety Muro DO - Last Filed: 10/01/20 10:13> Orders Ordered: Discontinued Medications Sodium Chloride (Normal Saline 0.9%) 1,000 mls @ 125 mls/hr IV CONT SHIRIN Last Admin: 09/30/20 11:20 Dose: 125 mls/hr Documented by: RONN Vital Signs Vital signs: Vital Signs - 8 hr 09/30/20 11:07 09/30/20 11:41 09/30/20 11:43 Temperature 98.5 F Pulse Rate 88 81 80 Respiratory Rate 18 Blood Pressure 123/60 96/55 L Pulse Oximetry 100 99 99 09/30/20 11:53 09/30/20 12:00 09/30/20 12:30 Temperature Pulse Rate 96 H 73 76 Respiratory Rate Blood Pressure 107/57 L Pulse Oximetry 100 99 99 MDM - Female Genitourinary <MIRLANDE Lopez - Last Filed: 09/30/20 13:05> Differential Diagnosis Differential diagnosis: Likely other ( lochia, vaginal hemorrhaging from laceration, arterial bleed from vaginal laceration) Medical Records Attestation: I reviewed the patient's medical records. Lab Data Attestation: I reviewed the patient's lab results. Result diagrams: 09/30/20 11:15 09/30/20 11:15 Labs: Lab Results 09/30/20 09/30/20 09/30/20 Range/Units 11:15 11:15 11:15 WBC 7.2 (4.5-11.0) X10^3/uL RBC 2.92 L (4.0-5.2) X10^6/uL Hgb 9.3 L (12.0-16.0) g/dL Hct 26.8 L (36-46) % MCV 91.8 D (80-100) fL MCH 32.0 (26-34) PG MCHC 34.9 (30-36) % RDW 17.1 H (11.6-14.8) % Plt Count 343 (150-400) X10^3/uL Neut % (Auto) 59.8 (50-75) % Lymph % (Auto) 27.4 (25-40) % [place] % (Auto) 5.8 (3-14) % Eos % (Auto) 5.6 H (2-4) % Baso % (Auto) 1.4 (0-2) % Neut # (Auto) 4300 (4176-9102) /uL Lymph # (Auto) 2000 (8050-3836) /uL [place] # (Auto) 400 (0-900) /uL Eos # (Auto) 400 (0-450) /uL Baso # (Auto) 100 (0-100) /uL PT 11.2 (10.1-12.7) SECONDS INR 1.0 (0.9-1.3) APTT 33 D (26.4-36.2) SECONDS Sodium 137 (137-145) mmol/L Potassium 4.0 (3.4-5.1) mmol/L Chloride 107 (98-107) mmol/L Carbon Dioxide 27 (22-32) mmol/L BUN 13 (7-17) mg/dL Creatinine 0.57 (0.52-1.04) mg/dL Estimated GFR > 60.0 (>60) mL/min BUN/Creatinine Ratio 22.8 H (6-22) Glucose 91 (70-100) mg/dL Calcium 8.7 (8.4-10.2) mg/dL Total Bilirubin 0.2 (0.2-1.3) mg/dL AST 21 (14-36) IU/L ALT 16 (<35) IU/L Alkaline Phosphatase 77 (38-126) U/L Total Protein 6.2 L (6.3-8.2) g/dL Albumin 3.7 (3.5-5.0) g/dL Globulin 2.5 (1.7-4.1) g/dL Albumin/Globulin Ratio 1.5 (1.0-2.8) Blood Type Antibody Screen 09/30/20 Range/Units 11:15 WBC (4.5-11.0) X10^3/uL RBC (4.0-5.2) X10^6/uL Hgb (12.0-16.0) g/dL Hct (36-46) % MCV (80-100) fL MCH (26-34) PG MCHC (30-36) % RDW (11.6-14.8) % Plt Count (150-400) X10^3/uL Neut % (Auto) (50-75) % Lymph % (Auto) (25-40) % [place] % (Auto) (3-14) % Eos % (Auto) (2-4) % Baso % (Auto) (0-2) % Neut # (Auto) (2706-4037) /uL Lymph # (Auto) (9145-6644) /uL [place] # (Auto) (0-900) /uL Eos # (Auto) (0-450) /uL Baso # (Auto) (0-100) /uL PT (10.1-12.7) SECONDS INR (0.9-1.3) APTT (26.4-36.2) SECONDS Sodium (137-145) mmol/L Potassium (3.4-5.1) mmol/L Chloride (98-107) mmol/L Carbon Dioxide (22-32) mmol/L BUN (7-17) mg/dL Creatinine (0.52-1.04) mg/dL Estimated GFR (>60) mL/min BUN/Creatinine Ratio (6-22) Glucose (70-100) mg/dL Calcium (8.4-10.2) mg/dL Total Bilirubin (0.2-1.3) mg/dL AST (14-36) IU/L ALT (<35) IU/L Alkaline Phosphatase (38-126) U/L Total Protein (6.3-8.2) g/dL Albumin (3.5-5.0) g/dL Globulin (1.7-4.1) g/dL Albumin/Globulin Ratio (1.0-2.8) Blood Type A Positive Antibody Screen Negative MDM Narrative Medical decision making narrative: This is a 35-year-old female who had arterial vaginal and posterial wall hemorrhage which was repaired [address] Soares in OR presents to ED with recurring vaginal bleeding she noticed 45 minutes prior coming into ED after breast-feeding and without exertion. Patient appears to be slightly pale but H&H has improved since patient was discharged to home. Today's H/H is 9.3/26.8 (6.4/19.3). Normal coag. Unremarkable chemistry test. Pelvic exam without active vaginal bleeding. Sutures in posterior vaginal/pernial commisure area are intact. Appreciated large clot on peripad. Patient is not symptomatic at this time with stable vital signs. The patient was also evaluated by Dr. Colbert at bedside. Monitored patient for 2 hours without another episode of acute bleeding even after ambulation to the bathroom and voiding. We discussed return precautions with patient and she verbalized understanding. Patient has follow-up appointment with Dr. Rose tomorrow. Patient in agreement with the treatment plan at this time with continue to monitor bleeding and symptoms. <Lety Muro, - Last Filed: 10/01/20 10:13> Lab Data Labs: Lab Results 09/30/20 09/30/20 09/30/20 Range/Units 11:15 11:15 11:15 WBC 7.2 (4.5-11.0) X10^3/uL RBC 2.92 L (4.0-5.2) X10^6/uL Hgb 9.3 L (12.0-16.0) g/dL Hct 26.8 L (36-46) % MCV 91.8 D (80-100) fL MCH 32.0 (26-34) PG MCHC 34.9 (30-36) % RDW 17.1 H (11.6-14.8) % Plt Count 343 (150-400) X10^3/uL Neut % (Auto) 59.8 (50-75) % Lymph % (Auto) 27.4 (25-40) % [place] % (Auto) 5.8 (3-14) % Eos % (Auto) 5.6 H (2-4) % Baso % (Auto) 1.4 (0-2) % Neut # (Auto) 4300 (0809-4094) /uL Lymph # (Auto) 2000 (4216-3926) /uL [place] # (Auto) 400 (0-900) /uL Eos # (Auto) 400 (0-450) /uL Baso # (Auto) 100 (0-100) /uL PT 11.2 (10.1-12.7) SECONDS INR 1.0 (0.9-1.3) APTT 33 D (26.4-36.2) SECONDS Sodium 137 (137-145) mmol/L Potassium 4.0 (3.4-5.1) mmol/L Chloride 107 (98-107) mmol/L Carbon Dioxide 27 (22-32) mmol/L BUN 13 (7-17) mg/dL Creatinine 0.57 (0.52-1.04) mg/dL Estimated GFR > 60.0 (>60) mL/min BUN/Creatinine Ratio 22.8 H (6-22) Glucose 91 (70-100) mg/dL Calcium 8.7 (8.4-10.2) mg/dL Total Bilirubin 0.2 (0.2-1.3) mg/dL AST 21 (14-36) IU/L ALT 16 (<35) IU/L Alkaline Phosphatase 77 (38-126) U/L Total Protein 6.2 L (6.3-8.2) g/dL Albumin 3.7 (3.5-5.0) g/dL Globulin 2.5 (1.7-4.1) g/dL Albumin/Globulin Ratio 1.5 (1.0-2.8) Blood Type Antibody Screen 09/30/20 Range/Units 11:15 WBC (4.5-11.0) X10^3/uL RBC (4.0-5.2) X10^6/uL Hgb (12.0-16.0) g/dL Hct (36-46) % MCV (80-100) fL MCH (26-34) PG MCHC (30-36) % RDW (11.6-14.8) % Plt Count (150-400) X10^3/uL Neut % (Auto) (50-75) % Lymph % (Auto) (25-40) % [place] % (Auto) (3-14) % Eos % (Auto) (2-4) % Baso % (Auto) (0-2) % Neut # (Auto) (8457-5387) /uL Lymph # (Auto) (8843-7386) /uL [place] # (Auto) (0-900) /uL Eos # (Auto) (0-450) /uL Baso # (Auto) (0-100) /uL PT (10.1-12.7) SECONDS INR (0.9-1.3) APTT (26.4-36.2) SECONDS Sodium (137-145) mmol/L Potassium (3.4-5.1) mmol/L Chloride (98-107) mmol/L Carbon Dioxide (22-32) mmol/L BUN (7-17) mg/dL Creatinine (0.52-1.04) mg/dL Estimated GFR (>60) mL/min BUN/Creatinine Ratio (6-22) Glucose (70-100) mg/dL Calcium (8.4-10.2) mg/dL Total Bilirubin (0.2-1.3) mg/dL AST (14-36) IU/L ALT (<35) IU/L Alkaline Phosphatase (38-126) U/L Total Protein (6.3-8.2) g/dL Albumin (3.5-5.0) g/dL Globulin (1.7-4.1) g/dL Albumin/Globulin Ratio (1.0-2.8) Blood Type A Positive Antibody Screen Negative Discharge Plan Departure Patient Disposition: Home Clinical Impression: Vaginal bleeding Instructions: DI for Vaginal Bleeding Activity Restrictions/Additional Instructions: You have been diagnosed with [ vaginal bleeding. The blood count has improved today. No further significant vaginal bleeding in ED for last 2 hours.]. What to do: *Take your medications as directed. *Follow up with your primary care provider tomorrow as scheduled. Let them know you were seen in the ED and that we asked you to be seen in follow up. *Return to ED if you have any new, worsening, or concerning symptoms, such as [chest pain, breathing difficulty, unable to tolerate fluids, fever, abdominal pain, dizziness or any acute concerns]. Prescriptions: No Action prenat.vits,julianna,ksz-done-bpfzl Tablet 1 tab PO DAILY RF: 0 folic acid 400 mcg tablet 0.4 mg PO DAILY RF: 0 Referrals: Jocy Rose MD [Primary Care Provider] - <Lety Muro DO - Last Filed: 10/01/20 10:13> Cosign ED Attending Cosignature Attestation: I was immediately available in the department for consultation. Documentation has been reviewed. I agree with assessment and plan.
[2020-09-30] MEDS: SODIUM CHLORIDE 0.9% 1,000 ML 125 ML IV (11:20)
[2020-09-30 11:25] LABS: Add Manual Diff / Slide Review NO; Basophils Absolute Auto 100 /uL (0-100); Basophils Percent Auto 1.4 % (0-2); Eosinophils Absolute Auto 400 /uL (0-450); Eosinophils Percent Auto 5.6 % (2-4); Hematocrit 26.8 % (36-46); Hemoglobin 9.3 g/dL (12.0-16.0); Lymphocytes Absolute Auto 2000 /uL (1100-4500); Lymphocytes Percent Auto 27.4 % (25-40); Mean Corpuscular HGB Conc 34.9 % (30-36); Mean Corpuscular Volume 91.8 fL (80-100); Monocytes Absolute Auto 400 /uL (0-900); Monocytes Percent Auto 5.8 % (3-14); Neutrophils Absolute Auto 4300 /uL (1500-7000); Neutrophils Percent Auto 59.8 % (50-75); Platelet Count 343 X10^3/uL (150-400); Red Blood Cell Count 2.92 X10^6/uL (4.0-5.2); Red Cell Distribution Width 17.1 % (11.6-14.8); White Blood Cell Count 7.2 X10^3/uL (4.5-11.0)
[2020-09-30 11:32] LABS: Prothrombin Time 11.2 SECONDS (10.1-12.7)
[2020-09-30 11:34] LABS: PTT Partial Thromboplastin Tim 33 SECONDS (26.4-36.2)
[2020-09-30 11:41] VITALS: PULSE 81; O2SAT 99
[2020-09-30 11:43] VITALS: BP 96/55; PULSE 80; O2SAT 99
[2020-09-30 11:43] LABS: Alanine Aminotransferase 16 IU/L (<35); Albumin 3.7 g/dL (3.5-5.0); Albumin Globulin Ratio 1.5 (1.0-2.8); Alkaline Phosphatase 77 U/L (38-126); Aspartate Aminotransferase 21 IU/L (14-36); BUN Creatinine Ratio 22.8 (6-22); Bilirubin Total 0.2 mg/dL (0.2-1.3); Blood Urea Nitrogen 13 mg/dL (7-17); Calcium 8.7 mg/dL (8.4-10.2); Carbon Dioxide 27 mmol/L (22-32); Chloride 107 mmol/L (98-107); Estimated Glomerular Filt Rate > 60.0 mL/min (>60); Globulin 2.5 g/dL (1.7-4.1); Glucose 91 mg/dL (70-100); HEMOLYSIS < 15 (0-50); Sodium 137 mmol/L (137-145); Total Protein 6.2 g/dL (6.3-8.2)
[2020-09-30 11:53] VITALS: BP 107/57; PULSE 96; O2SAT 100
--- NOTE | 2020-09-30 11:59 | PC.NURSE ---
Pt stood at the bedside, denies lightheadedness or dizziness with standing, no increase in vaginal bleeding with standing. Pt back to [facility] for further monitoring.
[2020-09-30 12:00] VITALS: PULSE 73; O2SAT 99
[2020-09-30 12:30] VITALS: PULSE 76; O2SAT 99
--- NOTE | 2020-09-30 14:29 | PM.CN ---
History of Present Illness Consult details Date Patient Seen: 09/30/20 Time Patient Seen: 11:45 Chief complaint: vaginal bleeding Reason for consult: Vaginal bleeding Requesting provider: Hansel Downing Narrative: Patient came in concerned about vaginal bleeding. She had a vaginal delivery with a second-degree perineal tear that was repaired. Approximately 9 days after delivery she had a significant about of bleeding. When she presented the emergency room she was found to have significant bleeding from her tear. She was taken back to the operating room where the bleeding blood vessel was found and tied off and then the repair was resutured. She received packed red blood cells. Patient states she was doing fine and then today she had a sudden gush of a blood clot. She was feeling weak and slightly pale so presented to the emergency room. Meds Home Medications and Allergies Home Medications Medication Instructions Recorded Confirmed Type folic acid 400 mcg tablet 0.4 mg PO DAILY 02/18/20 09/25/20 History prenat.vits,julianna,ubu-oysx-kysua 1 tab PO DAILY 02/18/20 09/25/20 History Allergies Allergy/AdvReac Type Severity Reaction Status Date / Time No Known Drug Allergies Allergy Verified 09/24/20 19:30 Exam Vital Signs (past 8 hours): - 09/30/20 11:07 09/30/20 11:41 09/30/20 11:43 Temperature 98.5 F Pulse Rate 88 81 80 Respiratory Rate 18 Blood Pressure 123/60 96/55 L Pulse Oximetry 100 99 99 09/30/20 11:53 09/30/20 12:00 09/30/20 12:30 Temperature Pulse Rate 96 H 73 76 Respiratory Rate Blood Pressure 107/57 L Pulse Oximetry 100 99 99 Oxygen Delivery Method Room Air Narrative Exam Narrative: On physical exam the patient's abdomen is soft, nontender. External genitalia appear intact. There is some mild bleeding did appears appropriate for her post state. She had no areas of apparent hematoma on palpation. Patient was asked to get up and ambulate to see if any bleeding increased. Evidently the bleeding did not increase. The patient's vital signs are stable. Her hematocrit is 26 up from 20 when she was discharged home from the hospital. At this point it does not appear there is anything more that can be done. Hopefully she had just had some bleeding that collected in her vagina than came out at once in the form of the clot. Objective Labs Result Diagrams: 09/30/20 11:15 09/30/20 11:15 Labs: Laboratory Results - last 24 hr 09/30/20 09/30/20 09/30/20 11:15 11:15 11:15 WBC 7.2 RBC 2.92 L Hgb 9.3 L Hct 26.8 L MCV 91.8 D MCH 32.0 MCHC 34.9 RDW 17.1 H Plt Count 343 Neut % (Auto) 59.8 Lymph % (Auto) 27.4 [place] % (Auto) 5.8 Eos % (Auto) 5.6 H Baso % (Auto) 1.4 Neut # (Auto) 4300 Lymph # (Auto) 2000 [place] # (Auto) 400 Eos # (Auto) 400 Baso # (Auto) 100 PT 11.2 INR 1.0 APTT 33 D Sodium 137 Potassium 4.0 Chloride 107 Carbon Dioxide 27 BUN 13 Creatinine 0.57 Estimated GFR > 60.0 BUN/Creatinine Ratio 22.8 H Glucose 91 Calcium 8.7 Total Bilirubin 0.2 AST 21 ALT 16 Alkaline Phosphatase 77 Total Protein 6.2 L Albumin 3.7 Globulin 2.5 Albumin/Globulin Ratio 1.5 Blood Type Antibody Screen 09/30/20 11:15 WBC RBC Hgb Hct MCV MCH MCHC RDW Plt Count Neut % (Auto) Lymph % (Auto) [place] % (Auto) Eos % (Auto) Baso % (Auto) Neut # (Auto) Lymph # (Auto) [place] # (Auto) Eos # (Auto) Baso # (Auto) PT INR APTT Sodium Potassium Chloride Carbon Dioxide BUN Creatinine Estimated GFR BUN/Creatinine Ratio Glucose Calcium Total Bilirubin AST ALT Alkaline Phosphatase Total Protein Albumin Globulin Albumin/Globulin Ratio Blood Type A Positive Antibody Screen Negative Assessment & Plan Assessment and plan (1) Vaginal bleeding: Status: Acute Assessment & Plan narrative: Patient with concern over vaginal bleeding after needing to have her second-degree tear repaired. Although she had some more bleeding and does not appear to be active at this time. Patient will be discharged home with precautions return if the bleeding persists. Time Spent With Patient Time with patient: less than 15 minutes
== END 2020-09-30 13:15 | disposition home or self-care (01) ==
PROVIDERS: Emergency Provider Nurse Practitioner Family; PCP Family Medicine
DX: O72.1 Other immediate postpartum hemorrhage (principal)
CPT/HCPCS: 36415; 80053; 85025; 85610; 85730; 86850; 86900; 86901; 99281; 99284

== ENCOUNTER 2020-10-01 23:00 | Observation (INO) | payer OTHER, SELFPAY ==
[2020-09-24 21:56] VITALS: BMI 27.3
[2020-10-01 23:07] VITALS: BP 132/60; PULSE 76; RESP 17; TEMP 36.8; O2SAT 100; BMI 26.7
[2020-10-01 23:39] LABS: Add Manual Diff / Slide Review NO; Basophils Absolute Auto 100 /uL (0-100); Basophils Percent Auto 1.2 % (0-2); Eosinophils Absolute Auto 400 /uL (0-450); Eosinophils Percent Auto 6.2 % (2-4); Hematocrit 25.9 % (36-46); Hemoglobin 8.7 g/dL (12.0-16.0); Lymphocytes Absolute Auto 2600 /uL (1100-4500); Lymphocytes Percent Auto 41.9 % (25-40); Mean Corpuscular HGB Conc 33.6 % (30-36); Mean Corpuscular Hemoglobin 31.3 PG (26-34); Mean Corpuscular Volume 93.1 fL (80-100); Monocytes Absolute Auto 400 /uL (0-900); Neutrophils Absolute Auto 2700 /uL (1500-7000); Neutrophils Percent Auto 43.7 % (50-75); Platelet Count 374 X10^3/uL (150-400); Red Blood Cell Count 2.78 X10^6/uL (4.0-5.2); White Blood Cell Count 6.2 X10^3/uL (4.5-11.0)
[2020-10-01 23:45] LABS: Blood Urea Nitrogen 13 mg/dL (7-17); Calcium 8.9 mg/dL (8.4-10.2); Carbon Dioxide 27 mmol/L (22-32); Chloride 106 mmol/L (98-107); Estimated Glomerular Filt Rate > 60.0 mL/min (>60); Glucose 98 mg/dL (70-100); HEMOLYSIS < 15 (0-50); Potassium 3.5 mmol/L (3.4-5.1); Sodium 137 mmol/L (137-145)
--- NOTE | 2020-10-01 23:59 | ED.FEMALEGU ---
HPI - Female Genitourinary General Chief complaint: Vaginal Bleeding Stated complaint: Post pardom bleeding Time Seen by Provider: 10/01/20 23:00 Source: patient Mode of arrival: Ambulatory Limitations: no limitations History of Present Illness HPI Narrative: 35F former smoker presents with her in the chief complaint of the passage of 3 golf ball-sized clots earlier today and now more brisk, bright red vaginal bleeding which has soaked a pad in the last 15 minutes. She had a vaginal delivery a few weeks ago which resulted in a grade to perineal laceration that developed a significant arterial bleed about 1 week ago at which point she was taken to the operating room for repair. She had been finding well until today. She is not dizzy nor weak or lightheaded. She denies any chest pain or shortness of breath. She denies any pain. She states the bleeding is not as heavy as last week but is significantly picking up. She last ate at 6:00 p.m. MD Complaint: vaginal bleeding Onset (ago): hour(s) Location: perineum Severity: moderate Relieving factors: none Exacerbating factors: none Vaginal discharge: blood Patient : No Associated symptoms: denies other symptoms Related Data Home Medications Medication Instructions Recorded Confirmed folic acid 400 mcg tablet 0.4 mg PO DAILY 02/18/20 09/25/20 prenat.vits,julianna,[id number] 1 tab PO DAILY 02/18/20 09/25/20 Allergies Allergy/AdvReac Type Severity Reaction Status Date / Time No Known Drug Allergies Allergy Verified 09/24/20 19:30 Review of Systems Constitutional Constitutional: Denies chills, Denies fatigue, Denies fever(s), Denies frequent falls, Denies lethargy and Denies weakness Eyes Eyes: Denies change in vision, Denies eye discharge, Denies irritation and Denies loss of vision ENT Ears, Nose, Mouth, and Throat: Denies change in voice, Denies dizziness, Denies neck pain, Denies sore throat and Denies throat swelling Cardiovascular Cardiovascular: Denies chest pain, Denies irregular heart rhythm, Denies lightheadedness, Denies palpitations, Denies dyspnea, Denies dyspnea on exertion and Denies orthopnea Respiratory Respiratory: Denies cough, Denies dyspnea, Denies dyspnea on exertion and Denies wheezing Gastrointestinal Gastrointestinal: Denies abdominal pain, Denies change in bowel habits, Denies diarrhea, Denies nausea and Denies vomiting Genitourinary Genitourinary: Reports abnormal vaginal bleeding Musculoskeletal Musculoskeletal: Denies neck pain and Denies numbness Integumentary/Breasts Skin/Breast: Denies pruritus, Denies erythema, Denies rash and Denies wounds Neurologic Neurologic: Denies behavioral changes, Denies confusion, Denies dizziness, Denies frequent falls, Denies loss of vision, Denies numbness and Denies weakness Psychiatric Psychiatric: Denies anxiety, Denies behavioral changes, Denies confusion, Denies depression, Denies homicidal ideation and Denies suicidal ideation Endocrine Endocrine: Denies fatigue, Denies flushing and Denies palpitations Hematologic/Lymphatic Hematologic/Lymphatic: Denies easy bruising Allergic/Immunologic Allergic/Immunologic: Denies urticaria, Denies throat swelling and Denies wheezing Patient History Medical History Fetus with encephalocele, antepartum History of drug use Psoriasis (~1999) Spontaneous vaginal delivery Surgical History Anesthesia Status post wrist surgery (~2002) Lapel teeth extracted Family History Father Age: 70 Mental health problem Bipolar 1 disorder Grandfather Mental health problem Suicide Diabetes mellitus Myocardial infarction Grandmother Hypertension High cholesterol History of multiple miscarriages Kidney stones Brother Depression Grandmother Emphysema of lung Grandfather Diabetes mellitus Mother Toshia infection Depression Family/Other Breast cancer Family/Other Leukemia Substance Use Type: does not use Exam Narrative Exam Narrative: GENERAL: [35] year old patient appears stated age. Well-nourished, well-developed patient, in mild distress. HEAD: Atraumatic. Normocephalic. EYES: Pupils equal round and reactive. Extraocular motions intact. No scleral icterus. No injection or drainage. ENT: Nose without bleeding, purulent drainage. Throat without erythema, tonsillar hypertrophy or exudate. Airway patent. NECK: Trachea midline. Non tender CARDIOVASCULAR: Regular rate and rhythm without murmurs, gallops, or rubs. RESPIRATORY: Clear to auscultation. Breath sounds equal bilaterally. No wheezes, rales, or rhonchi. PELVIC: Brisk bright red blood noted on external exam, apparent vaginal source. Speculum deferred to director council on aging. Performed with patient permission and female nursing exchange operator at the bedside GASTROINTESTINAL: Abdomen soft, non-tender, nondistended. EXTREMITIES: No edema or joint tenderness. BACK: Nontender without deformity or crepitance. No flank tenderness. NEURO: AOx3. SKIN: No rash or erythema of visible areas Initial Vital Signs Initial Vital Signs: Vital Signs Temperature 98.2 F 10/01/20 23:07 Pulse Rate 76 10/01/20 23:07 Respiratory Rate 17 10/01/20 23:07 Blood Pressure 132/60 10/01/20 23:07 Pulse Oximetry 100 10/01/20 23:07 Course Orders Ordered: ED Orders 10/01/20 23:25 Basic Metabolic Panel Stat Complete Blood Count AUTO DIFF Stat Type and Screen Stat 10/02/20 00:50 COVID19 Stat Lactated Ringer's (Lactated Ringers) 1,000 mls @ 125 mls/hr IV CONT SHIRIN Last Admin: 10/02/20 03:30 Dose: 125 mls/hr Documented by: Infusion: 10/02/20 03:30 Dose: 125 mls/hr Documented by: Admin: 10/02/20 02:57 Dose: 125 mls/hr Documented by: MURTAZA Ibuprofen (Ibuprofen 400 Mg Tablet) 600 mg PO Q6HR PRN PRN Reason: Pain, Mild (1-3) Naloxone HCl (Naloxone 0.4 Mg/Ml Vial) 0.2 mg IV Q2MIN PRN PRN Reason: Opiate Reversal Discontinued Medications Fentanyl (Fentanyl 100 Mcg/2 Ml Inj) 0 mcg IV Q5M PRN PRN Reason: Pain, Moderate (4-6) Hydromorphone HCl (Hydromorphone 2 Mg Inj) 0 mg IV Q5M PRN PRN Reason: Pain, Severe (7-10) Lactated Ringer's (Lactated Ringers) 1,000 mls @ 42 mls/hr IV CONT SHIRIN Last Infusion: 10/02/20 02:30 Dose: 0 mls/hr Documented by: Admin: 10/02/20 01:30 Dose: 42 mls/hr Documented by: LANA Lactated Ringer's (Lactated Ringers) 1,000 mls @ 100 mls/hr IV CONT SHIRIN Last Admin: 10/02/20 03:41 Dose: Not Given Documented by: MURTAZA Cefazolin Sodium/Dextrose (Ancef) 2 gm in 100 mls @ 200 mls/hr IV NOW ONE Stop: 10/02/20 01:42 Last Infusion: 10/02/20 01:37 Dose: 0 mls/hr Documented by: Admin: 10/02/20 01:32 Dose: 200 mls/hr Documented by: NINOSKA Metoclopramide HCl (Metoclopramide 10 Mg/2 Ml Inj) 10 mg IV NOW PRN PRN Reason: Nausea And Vomiting Misoprostol (Misoprostol 200 Mcg Tablet) 1,000 mcg VAG NOW ONE Stop: 10/02/20 02:18 Last Admin: 10/02/20 02:19 Dose: 1,000 mcg Documented by: MELE Ondansetron HCl (Ondansetron 4 Mg/2 Ml Inj) 4 mg IV NOW PRN PRN Reason: Nausea And Vomiting Oxycodone/Acetaminophen (Oxycodone/Acetaminophen 5/325 Tablet) 1 tab PO PACUNOW PRN PRN Reason: Mild or Moderate Pain Consultations Consultation #1: Call to [place] (director council on aging) who will come in to see patient, requests we call OR crew Vital Signs Vital signs: Vital Signs - 8 hr 10/01/20 23:07 Temperature 98.2 F Pulse Rate 76 Respiratory Rate 17 Blood Pressure 132/60 Pulse Oximetry 100 MDM - Female Genitourinary Lab Data Result diagrams: 10/01/20 23:25 10/01/20 23:25 Labs: Lab Results 10/01/20 10/01/20 10/01/20 Range/Units 23:25 23:25 23:25 WBC 6.2 (4.5-11.0) X10^3/uL RBC 2.78 L (4.0-5.2) X10^6/uL Hgb 8.7 L (12.0-16.0) g/dL Hct 25.9 L (36-46) % MCV 93.1 (80-100) fL MCH 31.3 (26-34) PG MCHC 33.6 (30-36) % RDW 17.0 H (11.6-14.8) % Plt Count 374 (150-400) X10^3/uL Neut % (Auto) 43.7 L (50-75) % Lymph % (Auto) 41.9 H (25-40) % [place] % (Auto) 7.0 (3-14) % Eos % (Auto) 6.2 H (2-4) % Baso % (Auto) 1.2 (0-2) % Neut # (Auto) 2700 (1721-6400) /uL Lymph # (Auto) 2600 (7855-4148) /uL [place] # (Auto) 400 (0-900) /uL Eos # (Auto) 400 (0-450) /uL Baso # (Auto) 100 (0-100) /uL Sodium 137 (137-145) mmol/L Potassium 3.5 (3.4-5.1) mmol/L Chloride 106 (98-107) mmol/L Carbon Dioxide 27 (22-32) mmol/L BUN 13 (7-17) mg/dL Creatinine 0.81 (0.52-1.04) mg/dL Estimated GFR > 60.0 (>60) mL/min BUN/Creatinine Ratio 16.0 (6-22) Glucose 98 (70-100) mg/dL Calcium 8.9 (8.4-10.2) mg/dL SARS-CoV-2 (PCR) (Negative) Blood Type A Positive Antibody Screen Negative 10/02/20 Range/Units 00:50 WBC (4.5-11.0) X10^3/uL RBC (4.0-5.2) X10^6/uL Hgb (12.0-16.0) g/dL Hct (36-46) % MCV (80-100) fL MCH (26-34) PG MCHC (30-36) % RDW (11.6-14.8) % Plt Count (150-400) X10^3/uL Neut % (Auto) (50-75) % Lymph % (Auto) (25-40) % [place] % (Auto) (3-14) % Eos % (Auto) (2-4) % Baso % (Auto) (0-2) % Neut # (Auto) (3621-4524) /uL Lymph # (Auto) (5170-3924) /uL [place] # (Auto) (0-900) /uL Eos # (Auto) (0-450) /uL Baso # (Auto) (0-100) /uL Sodium (137-145) mmol/L Potassium (3.4-5.1) mmol/L Chloride (98-107) mmol/L Carbon Dioxide (22-32) mmol/L BUN (7-17) mg/dL Creatinine (0.52-1.04) mg/dL Estimated GFR (>60) mL/min BUN/Creatinine Ratio (6-22) Glucose (70-100) mg/dL Calcium (8.4-10.2) mg/dL SARS-CoV-2 (PCR) Negative (Negative) Blood Type Antibody Screen Discharge Plan Departure Patient Disposition: Admitted to Surgery Clinical Impression: Abnormal vaginal bleeding Admit Date/Time: 10/02/20 00:58 Admit Provider: Claudia Hwang
[2020-10-02] VITALS (15 sets, daily range): BP systolic 83–107; BP diastolic 47–65; PULSE 66–112; RESP 13–20; TEMP 36.4–36.9; O2SAT 96–100; BMI 26.7
--- NOTE | 2020-10-02 | DI.US.S_ITS ---
PROCEDURE: US PELVIC LIMITED INDICATIONS: RULE OUT RETAINED PRODUCTS OF CONCEPTION TECHNIQUE: Real-time transabdominal scanning was performed of the uterus, with image documentation. COMPARISON: [facility], , OB LIMITED, 09/07/2020, 14:39. FINDINGS: Uterus: Uterus is anteverted measuring 11.1 x 5.6 by 7.2 centimeters within the posterior aspect of the uterine body there is a subserosal fibroid measuring 2.3 x 1.9 x 2.3 centimeters. Decreased echogenicity with septations and low level echogenicity noted within the endometrium measuring approximately 11.6 centimeters in thickness. There is likely layering of fluid noted on a few images. There is no internal or significant peripheral vascularity. Per ordering provider's request the ovaries were not evaluated. No free fluid within limits of this exam. IMPRESSION: Findings most consistent with resolving hematoma within the endometrial canal. No current sonographic findings suggest enemy tried is or retained products. Uterine fibroid. No significant discrepancies from preliminary report. Dictated by: Naun Ojeda D.O. on 10/02/2020 at 9:20 Approved by: Naun Ojeda D.O. on 10/02/2020 at 9:25
--- NOTE | 2020-10-02 | PATH_ITS ---
[facility] Accession Number: [id number] . 01 Material submitted: . endometrium - ENDOMETRIAL CURETTINGS . 01 Clinical history: . POST BLEEDING . 02 Diagnosis: Endometrium, Curettings: Endometrium with features of glandular and stromal breakdown. Separate fragments of tissue with coagulative necrosis, blood, and fibrin. No evidence of products of conception. Please see comment. [facility] 10/07/2020 1602 Local . 02 Comment: The clinical history of bleeding is noted. There are no products of conception identified in this material, including no evidence of placenta accreta. There is no significant chronic or active endometritis. There is no evidence of trophoblastic neoplasm. . As part of routine vendor quality supervisor, Dr. Pascal also reviewed this case and agrees with the interpretation. . 02 Electronically signed: . Shona Stout MD, Pathologist NPI- [id number] . 01 Gross description: . The specimen is received in formalin, labeled endometrial curettings and consists of multiple red-brown fragments of soft tissue and clotted blood measuring 4.0 x 3.0 x 1.5 cm in aggregate. The specimen is filtered and entirely submitted in cassettes A1-A3. ([id number]) /MRV 10/05/2020 1014 Local . 02 Pathologist provided ICD-10: O72.2 . 02 CPT . 438403 Performed at: 01 [facility] [address], [place], [place] [id number] MD Binu Gonzales MD Phone: [phone] Performed at: 02 [facility] [address] [place], [place] [id number] MD Shona Stout MD Phone: [phone]
--- NOTE | 2020-10-02 01:06 | PC.NURSE ---
Pt to go to OR for repair of vaginal bleeding. Breast pump borrowed from L&D prior to OR. Pt to be admitted after procedure.
--- NOTE | 2020-10-02 01:14 | P.HPOB_ITS ---
History of Present Illness History of Present Illness Reason for admission: vaginal bleeding Narrative: Donya Johns is a 35 year old female 3 para 1 16 days status post otherwise uncomplicated vaginal delivery who presented to the ER with recurrent bright red vaginal bleeding. Patient was seen on Sunday, 09/24 with heavy bright red vaginal bleeding, hypotension, and was taken to the OR for exam under anesthesia where a posterior wall vaginal laceration containing an arterial bleeder was repaired. The patient had good hemostasis at that time, was transfused due to degree of bleeding she had had previously, which discharge. She had 1 gush of bright red bleeding yesterday that was enough to fill a pad, which she was seen for an emergency room and subsequently stopped. Today, she reports that she stood up at approximately 7:00 p.m. and had a large gush of bright red bleeding that soaked her pad and ran down her leg. This stops for time and she felt well, but when it restarted with heavy bright red bleeding, she presented to the ER. Her bleeding is less heavy than previously, but heavier than typical for lochia, and the decision was made to take for repeat exam under anesthesia. [facility] Medical History Fetus with encephalocele, antepartum History of drug use Psoriasis (~1999) Spontaneous vaginal delivery Surgical History Anesthesia Status post wrist surgery (~2002) Maria Stein teeth extracted Family History Father Age: 70 Mental health problem Bipolar 1 disorder Grandfather Mental health problem Suicide Diabetes mellitus Myocardial infarction Grandmother Hypertension High cholesterol History of multiple miscarriages Kidney stones Brother Depression Grandmother Emphysema of lung Grandfather Diabetes mellitus Mother Toshia infection Depression Family/Other Breast cancer Family/Other Leukemia Social History marital status: unmarried,living together household members: significant other 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) current occupational exposures/hazards: Yes special kathleen needs: No Smoking Status: Former smoker second hand exposure: Yes alcohol intake: former substance use type: former substance user Meds Home Medications and Allergies Home Medications Medication Instructions Recorded Confirmed Type folic acid 400 mcg tablet 0.4 mg PO DAILY 02/18/20 09/25/20 History prenat.vits,julianna,too-unuf-govai 1 tab PO DAILY 02/18/20 09/25/20 History Allergies Allergy/AdvReac Type Severity Reaction Status Date / Time No Known Drug Allergies Allergy Verified 09/24/20 19:30 Review of Systems Constitutional Constitutional: Reports system reviewed and no additional complaints, except as documented Cardiovascular Cardiovascular: Reports system reviewed and no additional complaints, except as documented Respiratory Respiratory: Reports system reviewed and no additional complaints, except as documented Gastrointestinal Gastrointestinal: Reports system reviewed and no additional complaints, except as documented Genitourinary Genitourinary: Reports as per HPI Exam Vital Signs (past 8 hours): - 10/01/20 23:07 Temperature 98.2 F Pulse Rate 76 Respiratory Rate 17 Blood Pressure 132/60 Pulse Oximetry 100 Oxygen Delivery Method Room Air Const General: cooperative, comfortable and other (Pale but stable) Objective Labs Result Diagrams: 10/01/20 23:25 10/01/20 23:25 Labs: Laboratory Results - last 24 hr 10/01/20 10/01/20 10/01/20 23:25 23:25 23:25 WBC 6.2 RBC 2.78 L Hgb 8.7 L Hct 25.9 L MCV 93.1 MCH 31.3 MCHC 33.6 RDW 17.0 H Plt Count 374 Neut % (Auto) 43.7 L Lymph % (Auto) 41.9 H [place] % (Auto) 7.0 Eos % (Auto) 6.2 H Baso % (Auto) 1.2 Neut # (Auto) 2700 Lymph # (Auto) 2600 [place] # (Auto) 400 Eos # (Auto) 400 Baso # (Auto) 100 Sodium 137 Potassium 3.5 Chloride 106 Carbon Dioxide 27 BUN 13 Creatinine 0.81 Estimated GFR > 60.0 BUN/Creatinine Ratio 16.0 Glucose 98 Calcium 8.9 Blood Type A Positive Antibody Screen Negative Assessment & Plan Assessment & Plan narrative: Given the patient's prior history and the degree of her bleeding in the emergency room and previously, patient is to be taken for exam under anesthesia. Transabdominal bedside ultrasound was performed which showed a 1.1-1.5 cm endometrial lining but with increased vascularity concerning for clot, and so we discussed careful dilation and curettage, exam under anesthesia, repair of any actively bleeding laceration, and vaginal packing. The patient vocalized understanding of the risks and benefits, informed consent was obtained. - Transfer to OR for EUA with examination of laceration repair, possible re- suturing, gentle D&C, planned vaginal packing and salcido catheter until AM - 2g Ancef - Serial CBCs
[2020-10-02 01:18] LABS: COVID19 -Nasal RAPID Negative (Negative)
[2020-10-02] MEDS: LACTATED RINGERS 1,000 ML 42 ML IV (01:30)
--- NOTE | 2020-10-02 01:30 | SUR.HOLD ---
Pt brought to OPD, then seen by Dr La and soon after taken to the OR. Pt left in stable condition.
[2020-10-02] MEDS: CEFAZOLIN 2 GM/100 ML FROZ.PIGGY IV (01:32)
--- NOTE | 2020-10-02 02:08 | PM.OP.1 ---
Operative Date/Time/Diagnoses Date of procedure: 10/02/20 Time of procedure: 02:12 Pre-op diagnosis: hemorrhage Post-op diagnosis: other (retained products of conception) Procedure & Clinicians Procedure: exam under anesthesia, suction D&C Same procedure as scheduled: No Surgeon: Claudia Hwang Click Yes if Unassisted: Yes Anesthesia Type: General Operative Notes Findings: Normal vulva and vagina. Intact vaginal laceration repair with visible Vicryl, no bleeding from vaginal laceration. Careful inspection of entire vagina revealed no bleeding from vaginal sidewalls or sulcus. Enlarged, anteverted uterus measuring approximately 10 weeks gestation. Partially dilated cervix. Heavy bleeding with clots from cervical os on speculum exam. Closure Type: not applicable Specimen(s): other (Retained products of conception) Applied: catheter Estimated Blood Loss (mL): 200 Procedure in detail: After informed consent was obtained, the patient was taken to the operating room. General anesthesia was obtained without difficulty and she was placed in the dorsal lithotomy position. She was prepped and draped in the usual sterile fashion, and a Grewal catheter was placed. Careful exam under anesthesia was performed and showed no bleeding from the patient's prior vaginal laceration, or from any other site on the vaginal sidewalls or sulcus. On bimanual exam, the above findings were noted. On placement of the speculum, the patient was noted to have passage of dark red blood with clot from the cervical os. The anterior lip of the cervix was grasped with a single-tooth tenaculum, and Hegar dilators used to gently dilate the cervix to 8 mm Estonian with gentle pressure. A gentle curettage was performed, with removal of what appeared to be membranes. At this point, it became clear that the patient's bleeding was uterine in origin and that she has some retained products, consistent with ultrasound in the emergency room. We converted to a section D&C, and a 7 mm tip was gently advanced to the uterine fundus and then connected to suction. Two passes were performed with removal of mostly membranes with the 1st pass and a small amount of membrane with the 2nd. The 3rd pass revealed only blood, and a gentle curettage was performed with no further removal of membranes. The patient's bleeding at this point was minimal, and she was observed for several more minutes and remained so. The tenaculum was removed from the cervix with spontaneous hemostasis at the tenaculum sites, and careful re-examination of the vaginal sidewalls revealed no further bleeding. The patient was observed in the operating room for several more minutes with good hemostasis noted and scant vaginal bleeding. 1000 mg of rectal Cytotec was administered at the end of the case. The patient tolerated the procedure well was taken to PACU. Vaginal packing was not placed, but the Grewal catheter remained in place to be removed during observation on acute care. IVF: 600ccs LR UOP: 300ccs clear yellow urine EBL: 200ccs Complications: none Post-operative Condition: stable Disposition: Acute Care Plan for aftercare: Observation on acute care until a.m.
--- NOTE | 2020-10-02 02:12 | SUR.OPER ---
Lithotomy on padded OR bed, head on pillow, arms secured on padded arm boards at <90 degrees abduction. Legs secured in padded yellow fins stirrups.
[2020-10-02] MEDS: miSOPROStoL 200 MCG TABLET 1000 MCG VAG (02:19)
--- NOTE | 2020-10-02 02:29 | SUR.PHASEI ---
Stable PACU stay, VSS, slow to wake, Dr. Hwang to bedside, spoke with pt, pt taking ice chips well, no nausea no c/o pain/discomfort.
--- NOTE | 2020-10-02 02:56 | SUR.PHASEI ---
Pt transported up to room 226, bed low, locked and SCD's on. Pt left in stable condition.
[2020-10-02] MEDS: LACTATED RINGERS 1,000 ML 125 ML IV ×2 (02:57→03:30)
--- NOTE | 2020-10-02 03:26 | PC.NURSE ---
Pt. arrived to the unit via bed. Pt. a&O x4. Oriented to room, bed and call light use. Pt. denied pain. Scant amt. of lochia noted, pad changed. Grewal draining clear yellow urine. Discussed plan of care with pt. and Yesenia.Lawrence Knight. Cont. post op vitals.
--- NOTE | 2020-10-02 03:49 | PC.NURSE ---
Pt. states she thinks she is bleeding, upon inspection noted a mod-large amt. of blood on the peripad with a huge clot. Pt. denies lightheadedness, B/P 94/61, HR in the 80's. Will continue to monitor and if pt. passed more vaginal bleed with clots, will call
--- NOTE | 2020-10-02 05:57 | PC.NURSE ---
Called Dr. Hwang and informed of pt. passing approximately a golf size ball blood clot x 1, no further clots but just some blood trickles. Also ask about CBC for this am, order to draw CBC with diff and also to luke salcido.
[2020-10-02 06:21] LABS: Add Manual Diff / Slide Review NO; Basophils Absolute Auto 0 /uL (0-100); Basophils Percent Auto 0.6 % (0-2); Eosinophils Absolute Auto 0 /uL (0-450); Eosinophils Percent Auto 0.4 % (2-4); Hemoglobin 7.2 g/dL (12.0-16.0); Lymphocytes Absolute Auto 600 /uL (1100-4500); Lymphocytes Percent Auto 9.3 % (25-40); Mean Corpuscular HGB Conc 34.1 % (30-36); Mean Corpuscular Hemoglobin 31.7 PG (26-34); Mean Corpuscular Volume 92.8 fL (80-100); Monocytes Absolute Auto 100 /uL (0-900); Monocytes Percent Auto 1.1 % (3-14); Neutrophils Absolute Auto 5800 /uL (1500-7000); Neutrophils Percent Auto 88.6 % (50-75); Platelet Count 298 X10^3/uL (150-400); Red Blood Cell Count 2.27 X10^6/uL (4.0-5.2); Red Cell Distribution Width 17.4 % (11.6-14.8); White Blood Cell Count 6.6 X10^3/uL (4.5-11.0)
--- NOTE | 2020-10-02 08:46 | PC.NURSE ---
Addendum entered by Andrzej Amato R.N. 10/02/20 10:02: Dr. Hwang rounded ~ 0900. Assessed pt together and did orthostatic VS. Pt is mildly tachycardic (110s) upon standing but otherwise stable VS. Denies dizziness/lightheadedness but notices she is very fatigued with activity and is noted to be mildly pale. Requiring SBA to BR really just to manage IV pump. Pt voided 350 ML or urine mixed with blood, one clot which Dr. Hwang observed and stated was expected finding. Gait is steady and she is tending to ADLs (william care, teeth brushing, pumping, etc) independently. Plan is to receive 1 unit PRBCs and possibly dc home later today. Original Note: Rec'd pt in bed sleeping soundly. Allowed rest period and awoke for breakfast. Pt is AO x4 and making her needs known with clear, logical speech. Denies pain. BP low/stable with MAP greater than 65. Denies dizziness/lightheadedness at rest. States she is nervous to stand up due to concerns for vaginal bleeding. Declined OOB for breakfast. William pad checked and noted to be clean. Scant dry blood noted to inner thighs. Supportive S/O at bedside.
--- NOTE | 2020-10-02 09:17 | CM.DANOTE ---
Addendum entered by China Nix LPN 10/02/20 09:23: Payer: Nita OBRIEN PCP: Balbina Rose Original Note: DCP: assessment: case received, EMR reviewed. Pt is a 35 year old female who admitted to [facility] service: Dr. Mark Hwang early this morning. She was taken to surgery for exam under anesthesia and suction D&C. She is 16 weeks post delivery and has had ongoing difficulties with post bleeding. Supportive life partner Eugene Duarte has been at bedside. Family has been caring for baby. Will plan to discuss case in Team Rounds and follow prn for any d/c needs that may arise. At this time will not waken pt for assessment discussion. Anticipate she will d/c to home setting when cleared by Dr. Hwang for same.
--- NOTE | 2020-10-02 10:20 | P.DS_ITS ---
History of Present Illness History of Present Illness Date Patient Seen: 10/02/20 Time Patient Seen: 09:00 Chief complaint: Post pardom bleeding Narrative: This patient is a 35-year-old who presented to the emergency room 16 days with recurrent heavy vaginal bleeding. The patient had been seen on day 10, found to have an arterial bleeder from a vaginal laceration, and taken to the OR for repair. She was transfused due to perioperative blood loss but discharged the next day. On day 15, she presented to the ER after large gush of blood at home, and was found to have potential clot vs POCs in the endometrial cavity. She was taken for repeat EUA where her vaginal laceration repair was found to be intact and hemostatic, and u nderwent a suction D&C with removal or a mild amount of retained membranes. She had a postoperative hgb drop consistent with her preoperative blood loss, and was transfused one unit of pRBCs the next AM due to symptomatic anemia with significant improvement. She was tolerating po, voiding, ambulating well, had mild vaginal bleeding, and needed no pain medication. The patient was discharged home on POD#1 with strict precautions. Discharge Providers Provider Date of admission: 10/02/20 00:58 Discharge Date: 10/02/20 Primary care physician: Jocy Rose MD Consults: 10/02/20 02:51 Consult to Discharge Planning Routine Comment: Discharge provider: Claudia Hwang MD Summary Hospital Course Discharge Diagnosis: hemorrhage Hospital Course: This patient is a 35-year-old who presented to the emergency room 16 days with recurrent heavy vaginal bleeding. The patient had been seen on day 10, found to have an arterial bleeder from a vaginal laceration, and taken to the OR for repair. She was transfused due to periopera tive blood loss but discharged the next day. On day 15, she presented to the ER after large gush of blood at home, and was found to have potential clot vs POCs in the endometrial cavity. She was taken for repeat EUA where her vaginal laceration repair was found to be intact and hemostatic, and underwent a suction D&C with removal or a mild amount of retained membranes. She had a postoperative hgb drop consistent with her preoperative blood loss, and was transfused one unit of pRBCs the next AM due to symptomatic anemia with significant improvement. She was tolerating po, voiding, ambulating well, had mild vaginal bleeding, and needed no pain medication. The patient was discharged home on POD#1 with strict precautions. Status at Discharge Cognitive/behavioral status at discharge: oriented Functional status at discharge: independent ambulation Overall status at discharge: patient is progressing back to baseline Time Spent with Patient Time spent: Greater than 30 minutes Exam Vital Signs (past 8 hours): - 10/02/20 02:29 10/02/20 02:34 10/02/20 02:54 Temperature 97.9 F 97.6 F Pulse Rate 75 72 74 Pulse Rate [Orthostatic Lying] Pulse Rate [Orthostatic Sitting] Pulse Rate [Orthostatic Standing] Respiratory Rate 16 13 18 Blood Pressure 101/53 L 107/58 L 102/54 L Blood Pressure [Orthostatic Lying] Blood Pressure [Orthostatic Sitting] Blood Pressure [Orthostatic Standing] Pulse Oximetry 100 100 99 10/02/20 08:00 10/02/20 09:15 10/02/20 10:07 Temperature 97.8 F 98.3 F Pulse Rate 66 77 Pulse Rate [Orthostatic Lying] 79 Pulse Rate [Orthostatic Sitting] 95 H Pulse Rate [Orthostatic Standing] 112 H Respiratory Rate 15 16 Blood Pressure 87/53 L 95/50 L Blood Pressure [Orthostatic Lying] 89/54 L Blood Pressure [Orthostatic Sitting] 96/56 L Blood Pressure [Orthostatic Standing] 102/64 Pulse Oximetry 100 Oxygen Delivery Method Room Air Oxygen Flow Rate 0 Narrative Exam Narrative: Overall much improved s/p blood transfusion. Const General: cooperative, healthy appearing and comfortable Resp Effort & Inspection: normal respiratory effort Auscultation: clear to auscultation bilaterally Cardio Rate: regular rate Rhythm: regular rhythm GI Palpation: soft and No tender External Female Exam: normal external appearance Other: Mild lochia Extrem General: normal to inspection Objective Labs Result Diagrams: 10/02/20 06:04 10/01/20 23:25 Labs: Laboratory Results - last 24 hr 10/01/20 10/01/20 10/01/20 23:25 23:25 23:25 WBC 6.2 RBC 2.78 L Hgb 8.7 L Hct 25.9 L MCV 93.1 MCH 31.3 MCHC 33.6 RDW 17.0 H Plt Count 374 Neut % (Auto) 43.7 L Lymph % (Auto) 41.9 H [place] % (Auto) 7.0 Eos % (Auto) 6.2 H Baso % (Auto) 1.2 Neut # (Auto) 2700 Lymph # (Auto) 2600 [place] # (Auto) 400 Eos # (Auto) 400 Baso # (Auto) 100 Sodium 137 Potassium 3.5 Chloride 106 Carbon Dioxide 27 BUN 13 Creatinine 0.81 Estimated GFR > 60.0 BUN/Creatinine Ratio 16.0 Glucose 98 Calcium 8.9 Nasal Screen MRSA (PCR) SARS-CoV-2 (PCR) Blood Type A Positive Antibody Screen Negative Crossmatch See Detail 10/02/20 10/02/20 10/02/20 00:50 03:10 06:04 WBC 6.6 RBC 2.27 L Hgb 7.2 L Hct 21.0 L MCV 92.8 MCH 31.7 MCHC 34.1 RDW 17.4 H Plt Count 298 Neut % (Auto) 88.6 H D Lymph % (Auto) 9.3 L D [place] % (Auto) 1.1 L Eos % (Auto) 0.4 L Baso % (Auto) 0.6 Neut # (Auto) 5800 Lymph # (Auto) 600 L [place] # (Auto) 100 Eos # (Auto) 0 Baso # (Auto) 0 Sodium Potassium Chloride Carbon Dioxide BUN Creatinine Estimated GFR BUN/Creatinine Ratio Glucose Calcium Nasal Screen MRSA (PCR) Negative for mrsa SARS-CoV-2 (PCR) Negative Blood Type Antibody Screen Crossmatch [facility] Medical History Fetus with encephalocele, antepartum History of drug use Psoriasis (~1999) Spontaneous vaginal delivery Surgical History Anesthesia Status post wrist surgery (~2002) [place] teeth extracted Family History Father Age: 70 Mental health problem Bipolar 1 disorder Grandfather Mental health problem Suicide Diabetes mellitus Myocardial infarction Grandmother Hypertension High cholesterol History of multiple miscarriages Kidney stones Brother Depression Grandmother Emphysema of lung Grandfather Diabetes mellitus Mother Toshia infection Depression Family/Other Breast cancer Family/Other Leukemia Social History marital status: unmarried,living together household members: significant other 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 She has scant bleeding, and feels much improved after tranfusion of 1u pRBCs (instead of 2 per patient preference.) THe patient is deeply concerned about recurrent bleeding, and after discussion of the mechanism of her bleeding this time, was administered 1 dose of 0.2mg PO methergine prior to discharge. Strict precautions were discussed and all questions were answered. Plan of Treatment: Home with frequent rest, no lifting or heavy activity Follow up as scheduled with Dr. Rose in 4 days Discharge Plan Discharge Plan Patient Disposition: Home Discharge orders & Medications Prescriptions: Continued prenat.vits,julianna,[id number] Tablet 1 tab PO DAILY RF: 0 folic acid 400 mcg tablet 0.4 mg PO DAILY RF: 0 Follow up/Referrals: Jocy Rose MD [Primary Care Provider] - Diet/Activity/Treatments Diet: Regular Activity: Nothing in the vagina for 6 weeks. If you have increased bleeding with soaking pads, fevers, chills, nausea, vomiting, increased pain, dizziness, or a ny other symptoms, call or come to the emergency room. Skin/Wound/Dressing Care Report to your healthcare provider any signs of infection, such as:: chills, fever, night sweats, increased pain, unusual drainage and unusual redness Visit Report/Discharge Packet Instructions: DI for a Dilation and Curettage Stand Alone Forms: Surgery Discharge Discharge Data Primary Care Provider: Jocy Rose Attending Provider: Claudia Hwang VTE Deep Vein Thrombosis/Pulmonary Embolism Present on Admission: Yes
[2020-10-02] MEDS: METHYLERGONOVINE 0.2 MG TABLET PO (13:03)
--- NOTE | 2020-10-02 13:11 | PC.NURSE ---
Pt tolerated transfusion well. Reports feeling much better after PRBCs. Ambulating to BR with steady gait and denies dizziness/lightheadedness. VSS. Removed PIV with cath tip intact. Reviewed dc packet and educational material with pt and s/o. Both verbalize understanding. Pt states she has a f/u appt with Dr. Rose already scheduled in a few days. Instructed pt to keep appt and report any concerns or come back to ED for continued bleeding/concerning symptoms such as those written by Dr. Hwang. They both verbalize understanding of teach. Pt dressed herself and walked independently to w/c. Escorted to private vehicle by [employer] with all belongings and s/o for dc at 1315.
== END 2020-10-02 13:15 | disposition home or self-care (01) ==
LOC: ED 10-02 00:58 → AC 10-02 01:02 → ICU 10-02 02:49
PROVIDERS: Admitting Provider Obstetrics & Gynecology; Emergency Provider Emergency Medicine; PCP Family Medicine; Referring Provider Emergency Medicine; Visit Provider Obstetrics & Gynecology
PROC: (CPT 57410; principal; 2020-10-02 01:15)
DX: O72.2 Delayed and secondary postpartum hemorrhage (principal); Z20.822 Contact with and (suspected) exposure to COVID-19
CPT/HCPCS: 36415; 36430; 76857; 80048; 85025; 86850; 86900; 86901; 87635; 87797; 99283; C9803; G0378; P9016; J0330; J0690; J1100; J2250; J2405; J2704; J3010; S0191

== ENCOUNTER 2020-10-02 19:41 | Inpatient (IN) | payer OTHER, SELFPAY ==
[2020-10-02] VITALS (12 sets, daily range): BP systolic 80–113; BP diastolic 40–64; PULSE 73–95; RESP 11–16; TEMP 36.4–37.7; O2SAT 98–100; BMI 26.7; BMI 26.6
--- NOTE | 2020-10-02 | PATH_ITS ---
[facility] Accession Number: [id number] . 01 Material submitted: . endometrium - INTRAUTERINE CONTENTS . 01 Clinical history: . FAINTED . 02 Diagnosis: Intrauterine Contents: Portions of weakly proliferative endometrium with patchy regions of breakdown and hemorrhage; negative for glandular hyperplasia, cytologic atypia, or malignancy. Portions of blood with patchy features of organization, fibrin, and necroinflammatory debris. No products of conception identified. No neoplasm identified. No well preserved myometrium identified for evaluation. Although rare plasma cells and neutrophils are present, these findings may be due to background inflammation; definite features of endometritis are not identified. MRV 10/07/2020 1529 Local . 02 Comment: As part of routine nurse quality, some of this case was also reviewed by Dr. Stotu, who agrees with the interpretation. . 02 Electronically signed: . Shaina Pascal MD, Pathologist NPI- [id number] . 01 Gross description: . INTRAUTERINE CONTENTS: Received in formalin are minute fragments of mucoid and hemorrhagic material measuring 2.0 x 2.0 x 0.4 cm in aggregate. Submitted in toto in 2 cassettes. /JUAN 10/05/2020 1908 Local . 02 Pathologist provided ICD-10: N85.00 . 02 CPT . 112179 Performed at: 01 [facility] [address], [place], [place] [id number] MD Binu Gonzales MD Phone: [phone] Performed at: 02 [facility] [place] [address] [place], [place] [id number] MD Shona Stout MD Phone: [phone]
--- NOTE | 2020-10-02 20:02 | ED.FEMALEGU ---
HPI - Female Genitourinary General Chief complaint: Vaginal Bleeding Stated complaint: Fainted Time Seen by Provider: 10/02/20 19:45 Source: patient Mode of arrival: Wheelchair Limitations: no limitations History of Present Illness HPI Narrative: 35-year-old female former smoker returns to the emergency department for the 3rd time with significant vaginal bleeding. She delivered vaginally a few weeks ago and suffered a grade to perineal laceration that was repaired prior to discharge. About 1 week ago she was seen here after she developed significant, heavy bleeding and was taken to the OR for repair under anesthesia. She went home and was doing well until yesterday she started passing some heavy clots again. She was a bit weak and lightheaded but not as significantly ill is last week. Her hemoglobin had a slight drop, ultrasound suggested perhaps some abnormal tissue within the uterus and she was taking back to the operating room for evaluation. The laceration site was intact and demonstrated no bleeding, however dark bleeding was noted from the cervical os. Gentle curettage removed what appeared to be membranes and it was clear that the bleeding was urine in origin. Patient was kept overnight, received 1 unit of blood and discharged home with appropriate return precautions. This afternoon she developed what started as mild bleeding and passage of clots and was then followed by heavy bleeding, saturating a pad in the 15 minutes prior to her arrival. She is dizzy and, near syncopal. She denies any chest pain but is mildly short of breath. She feels nauseated but denies any vomiting. She has had no fever or chills. Last oral intake was 1900 Related Data Home Medications Medication Instructions Recorded Confirmed folic acid 400 mcg tablet 0.4 mg PO DAILY 02/18/20 10/03/20 prenat.vits,julianna,[id number] 1 tab PO DAILY 02/18/20 10/03/20 Allergies Allergy/AdvReac Type Severity Reaction Status Date / Time No Known Drug Allergies Allergy Verified 10/02/20 19:54 Review of Systems Constitutional Constitutional: Denies chills, Reports fatigue, Denies fever(s), Denies frequent falls, Reports lethargy and Reports weakness Eyes Eyes: Denies change in vision, Denies eye discharge, Denies irritation and Denies loss of vision ENT Ears, Nose, Mouth, and Throat: Denies change in voice, Denies dizziness, Denies neck pain, Denies sore throat and Denies throat swelling Cardiovascular Cardiovascular: Denies chest pain, Denies irregular heart rhythm, Denies lightheadedness, Denies palpitations, Reports dyspnea, Denies dyspnea on exertion and Denies orthopnea Respiratory Respiratory: Denies cough, Reports dyspnea, Denies dyspnea on exertion and Denies wheezing Gastrointestinal Gastrointestinal: Denies abdominal pain, Denies change in bowel habits, Denies diarrhea, Denies nausea and Denies vomiting Genitourinary Genitourinary: Reports abnormal vaginal bleeding Musculoskeletal Musculoskeletal: Denies neck pain and Denies numbness Integumentary/Breasts Skin/Breast: Denies pruritus, Denies erythema, Denies rash and Denies wounds Neurologic Neurologic: Denies behavioral changes, Denies confusion, Denies dizziness, Denies frequent falls, Denies loss of vision, Denies numbness and Reports weakness Psychiatric Psychiatric: Denies anxiety, Denies behavioral changes, Denies confusion, Denies depression, Denies homicidal ideation and Denies suicidal ideation Endocrine Endocrine: Reports fatigue, Denies flushing and Denies palpitations Hematologic/Lymphatic Hematologic/Lymphatic: Denies easy bruising Allergic/Immunologic Allergic/Immunologic: Denies urticaria, Denies throat swelling and Denies wheezing Patient History Medical History Fetus with encephalocele, antepartum History of drug use Psoriasis (~1999) Spontaneous vaginal delivery Surgical History Anesthesia Status post wrist surgery (~2002) [place] teeth extracted Family History Father Age: 70 Mental health problem Bipolar 1 disorder Grandfather Mental health problem Suicide Diabetes mellitus Myocardial infarction Grandmother Hypertension High cholesterol History of multiple miscarriages Kidney stones Brother Depression Grandmother Emphysema of lung Grandfather Diabetes mellitus Mother Toshia infection Depression Family/Other Breast cancer Family/Other Leukemia alcohol intake frequency: holidays/special occasions only Substance Use Type: does not use Exam Narrative Exam Narrative: GENERAL: [35] year old patient appears stated age. Well-nourished, well-developed patient, in moderate distress, pale and diaphoretic. Wheel chair and blanket soaked with blood HEAD: Atraumatic. Normocephalic. EYES: Pale conjunctiva Pupils equal round and reactive. Extraocular motions intact. No scleral icterus. No injection or drainage. ENT: Nose without bleeding, purulent drainage. Throat without erythema, tonsillar hypertrophy or exudate. Airway patent. NECK: Trachea midline. Non tender CARDIOVASCULAR: Regular but mildly tachycardic without murmurs, gallops, or rubs. RESPIRATORY: Clear to auscultation. Breath sounds equal bilaterally. No wheezes, rales, or rhonchi. GASTROINTESTINAL: Abdomen soft, non-tender, nondistended. : External exam notes moderate bleeding with fresh clots. EXTREMITIES: No edema or joint tenderness. BACK: Nontender without deformity or crepitance. No flank tenderness. NEURO: AOx3. SKIN: No rash or erythema of visible areas Initial Vital Signs Initial Vital Signs: Vital Signs Temperature 99.9 F H 10/02/20 19:48 Pulse Rate 90 10/02/20 19:48 Respiratory Rate 14 10/02/20 19:48 Blood Pressure 109/59 L 10/02/20 19:48 Pulse Oximetry 98 10/02/20 19:48 Course Course Course Narrative: Dr. Hwang contacted on patient arrival. Methergin ordered. She is en route. Orders Ordered: ED Orders 10/02/20 19:55 Basic Metabolic Panel Stat Complete Blood Count AUTO DIFF Stat Partial Thromboplastin Time Stat Prothrombin Time INR Stat Type and Screen Stat 10/02/20 20:17 US pelvic limited Stat Hydromorphone HCl (Hydromorphone 1 Mg Inj) 0.5 mg IV Q4HR PRN PRN Reason: Pain, Moderate (4-6) Clindamycin Phosphate (Cleocin) 900 mg in 50 mls @ 50 mls/hr IV Q8H SHIRIN Last Infusion: 10/03/20 00:46 Dose: 0 mls/hr Documented by: Admin: 10/02/20 23:38 Dose: 50 mls/hr Documented by: ALISA Lactated Ringer's (Lactated Ringers) 1,000 mls @ 100 mls/hr IV CONT SHIRIN Last Admin: 10/02/20 23:38 Dose: 100 mls/hr Documented by: ALISA Ibuprofen (Ibuprofen 600 Mg Tablet) 600 mg PO Q6HR PRN PRN Reason: Fever/Mild Pain (1-3) Last Admin: 10/02/20 23:50 Dose: 600 mg Documented by: ALISA Methylergonovine Maleate (Methylergonovine 0.2 Mg Tablet) 0.2 mg PO Q4HR PRN PRN Reason: Bleeding Last Admin: 10/03/20 00:13 Dose: 0.2 mg Documented by: ALISA Naloxone HCl (Naloxone 0.4 Mg/Ml Vial) 0.2 mg IV Q2MIN PRN PRN Reason: Opiate Reversal Ondansetron HCl (Ondansetron 4 Mg/2 Ml Inj) 4 mg IV Q6HR PRN PRN Reason: Nausea And Vomiting Discontinued Medications Hydrocodone Bitart/Acetaminophen (Hydrocodone/Acet 5/325 Tablet) 1 tab PO PACUNOW PRN PRN Reason: Mild or moderate pain Fentanyl (Fentanyl 100 Mcg/2 Ml Inj) 0 mcg IV Q5M PRN PRN Reason: Pain, Moderate (4-6) Hydromorphone HCl (Hydromorphone 2 Mg Inj) 0 mg IV Q5M PRN PRN Reason: Pain, Severe (7-10) Lactated Ringer's (Lactated Ringers) 1,000 mls @ 42 mls/hr IV CONT [facility] Last Infusion: 10/02/20 22:40 Dose: 0 mls/hr Documented by: Admin: 10/02/20 21:34 Dose: 42 mls/hr Documented by: MICHEAL Lactated Ringer's (Lactated Ringers) 1,000 mls @ 100 mls/hr IV CONT [facility] Last Admin: 10/02/20 23:07 Dose: Not Given Documented by: SARAH Cefazolin Sodium/Dextrose (Ancef) 2 gm in 100 mls @ 200 mls/hr IV NOW ONE Stop: 10/02/20 21:39 Last Infusion: 10/02/20 21:45 Dose: 0 mls/hr Documented by: Admin: 10/02/20 21:35 Dose: 200 mls/hr Documented by: NINOSKA Gentamicin Sulfate 290 mg/ (Sodium Chloride) 107.25 mls @ 107.25 mls/hr IV NOW ONE Stop: 10/02/20 22:55 Last Admin: 10/03/20 00:46 Dose: 107.25 mls/hr Documented by: ALISA Methylergonovine Maleate (Methylergonovine 0.2 Mg/Ml Vial) 0.2 mg IM NOW ONE Stop: 10/02/20 19:56 Last Admin: 10/02/20 20:25 Dose: 0.2 mg Documented by: MASON Metoclopramide HCl (Metoclopramide 10 Mg/2 Ml Inj) 10 mg IV NOW PRN PRN Reason: Nausea And Vomiting Ondansetron HCl (Ondansetron 4 Mg/2 Ml Inj) 4 mg IV NOW PRN PRN Reason: Nausea And Vomiting Vital Signs Vital signs: Vital Signs - 8 hr 10/02/20 19:48 10/02/20 19:59 10/02/20 20:00 Temperature 99.9 F H Pulse Rate 90 86 88 Respiratory Rate 14 Blood Pressure 109/59 L 98/57 L Pulse Oximetry 98 98 98 MDM - Female Genitourinary Lab Data Result diagrams: 10/02/20 19:55 10/02/20 19:55 Labs: Lab Results 10/02/20 10/02/20 10/02/20 Range/Units 19:55 19:55 19:55 WBC 10.2 D (4.5-11.0) X10^3/uL RBC 2.94 L (4.0-5.2) X10^6/uL Hgb 9.2 L (12.0-16.0) g/dL Hct 26.6 L (36-46) % MCV 90.8 (80-100) fL MCH 31.2 (26-34) PG MCHC 34.3 (30-36) % RDW 17.8 H (11.6-14.8) % Plt Count 389 (150-400) X10^3/uL Neut % (Auto) 65.4 D (50-75) % Lymph % (Auto) 29.0 (25-40) % [place] % (Auto) 4.6 (3-14) % Eos % (Auto) 0.2 L (2-4) % Baso % (Auto) 0.8 (0-2) % Neut # (Auto) 6700 (0025-7589) /uL Lymph # (Auto) 3000 (0546-2518) /uL [place] # (Auto) 500 (0-900) /uL Eos # (Auto) 0 (0-450) /uL Baso # (Auto) 100 (0-100) /uL PT (10.1-12.7) SECONDS INR (0.9-1.3) APTT (26.4-36.2) SECONDS Sodium 136 L (137-145) mmol/L Potassium 3.1 L (3.4-5.1) mmol/L Chloride 108 H (98-107) mmol/L Carbon Dioxide 24 (22-32) mmol/L BUN 13 (7-17) mg/dL Creatinine 0.62 (0.52-1.04) mg/dL Estimated GFR > 60.0 (>60) mL/min BUN/Creatinine Ratio 21.0 (6-22) Glucose 132 H (70-100) mg/dL Calcium 8.7 (8.4-10.2) mg/dL Blood Type A Positive Antibody Screen Negative 10/02/20 Range/Units 19:55 WBC (4.5-11.0) X10^3/uL RBC (4.0-5.2) X10^6/uL Hgb (12.0-16.0) g/dL Hct (36-46) % MCV (80-100) fL MCH (26-34) PG MCHC (30-36) % RDW (11.6-14.8) % Plt Count (150-400) X10^3/uL Neut % (Auto) (50-75) % Lymph % (Auto) (25-40) % [place] % (Auto) (3-14) % Eos % (Auto) (2-4) % Baso % (Auto) (0-2) % Neut # (Auto) (5460-6933) /uL Lymph # (Auto) (1459-3691) /uL [place] # (Auto) (0-900) /uL Eos # (Auto) (0-450) /uL Baso # (Auto) (0-100) /uL PT 11.2 (10.1-12.7) SECONDS INR 1.0 (0.9-1.3) APTT 26 L D (26.4-36.2) SECONDS Sodium (137-145) mmol/L Potassium (3.4-5.1) mmol/L Chloride (98-107) mmol/L Carbon Dioxide (22-32) mmol/L BUN (7-17) mg/dL Creatinine (0.52-1.04) mg/dL Estimated GFR (>60) mL/min BUN/Creatinine Ratio (6-22) Glucose (70-100) mg/dL Calcium (8.4-10.2) mg/dL Blood Type Antibody Screen Discharge Plan Departure Patient Disposition: Admitted to Surgery Clinical Impression: Abnormal vaginal bleeding Admit Date/Time: 10/02/20 21:15 Admit Provider: Claudia Hwang
[2020-10-02 20:08] LABS: Add Manual Diff / Slide Review NO; Basophils Absolute Auto 100 /uL (0-100); Basophils Percent Auto 0.8 % (0-2); Eosinophils Absolute Auto 0 /uL (0-450); Eosinophils Percent Auto 0.2 % (2-4); Hematocrit 26.6 % (36-46); Hemoglobin 9.2 g/dL (12.0-16.0); Lymphocytes Absolute Auto 3000 /uL (1100-4500); Mean Corpuscular HGB Conc 34.3 % (30-36); Mean Corpuscular Hemoglobin 31.2 PG (26-34); Mean Corpuscular Volume 90.8 fL (80-100); Monocytes Absolute Auto 500 /uL (0-900); Monocytes Percent Auto 4.6 % (3-14); Neutrophils Absolute Auto 6700 /uL (1500-7000); Neutrophils Percent Auto 65.4 % (50-75); Platelet Count 389 X10^3/uL (150-400); Red Blood Cell Count 2.94 X10^6/uL (4.0-5.2); Red Cell Distribution Width 17.8 % (11.6-14.8); White Blood Cell Count 10.2 X10^3/uL (4.5-11.0)
--- NOTE | 2020-10-02 20:15 | PC.NURSE ---
Pt discharged from hospital today at 1400. states bleeding had slowed down but started to increase about 1900. had a syncopal episode but spouse was able to catch patient before she fell. States had bleed through a large pad in less than an hour. when stood from w/c to bed, pants were soaked in blood.
[2020-10-02 20:16] LABS: Blood Urea Nitrogen 13 mg/dL (7-17); Calcium 8.7 mg/dL (8.4-10.2); Carbon Dioxide 24 mmol/L (22-32); Chloride 108 mmol/L (98-107); Estimated Glomerular Filt Rate > 60.0 mL/min (>60); Glucose 132 mg/dL (70-100); HEMOLYSIS < 15 (0-50); Potassium 3.1 mmol/L (3.4-5.1); Sodium 136 mmol/L (137-145)
--- NOTE | 2020-10-02 20:17 | DI.US.S_ITS ---
PROCEDURE: US PELVIC LIMITED INDICATIONS: BLEEDING - TRANSABDOMINAL LIMITED ONLY TECHNIQUE: Real-time transabdominal scanning was performed of the pelvic organs, with image documentation. COMPARISON: [facility], US, US PELVIC LIMITED, 10/02/2020, 0:55. FINDINGS: Uterus: The uterus is mildly globular in morphology and heterogeneous in echotexture. The visible portion measures 8.9 x 6.9 x 5.9 cm. The endometrium demonstrates heterogeneous hypoechogenicity and measures 15 mm in thickness. There is a short linear focus of shadowing within the endometrium of uncertain etiology measuring about 6 mm. A right posterior myometrial fibroid is again noted. Other: No free pelvic fluid. IMPRESSION: 1. Mildly prominent uterus with heterogeneous endometrial stripe. 2. Ordering physician was at bedside during the exam. Dictated by: Jessi Mary M.D. on 10/02/2020 at 22:10 Approved by: Jessi Mary M.D. on 10/02/2020 at 22:28
[2020-10-02] MEDS: METHYLERGONOVINE 0.2 MG/ML VIAL IM (20:25)
[2020-10-02 20:26] LABS: Prothrombin Time 11.2 SECONDS (10.1-12.7)
[2020-10-02 20:28] LABS: PTT Partial Thromboplastin Tim 26 SECONDS (26.4-36.2)
--- NOTE | 2020-10-02 20:38 | P.HPOB_ITS ---
History of Present Illness History of Present Illness Reason for admission: vaginal bleeding Narrative: Donya Johns is a 35 year old female 17 days status post otherwise uncomplicated vaginal delivery who presented to the ER with recurrent bright red vaginal bleeding. Patient was seen on Sunday, 09/24 with heavy bright red vaginal bleeding, hypotension, and was taken to the OR for exam under anesthesia where a posterior wall vaginal laceration containing an arterial bleeder was repaired. The patient had good hemostasis at that time, was transfused due to degree of bleeding she had had previously, and discharged. She returned to the ED on PPD#16 with a gush of approximately 500ccs of bright red blood with ongoing brisk red bleeding and a drop in her hgb. Bedside US showed possible retained POCs and she was taken to the OR for exam under anesthesia and suction D&C. She had minimal bleeding for the rest of her stay and was discharged home midday on PPD#17, and reports that that evening, she again had a gush of liquid, bright red blood with only a few small clots and cramping. She had an episode of syncope and returned to the ED, where she again had 400-500ccs of bright red bleeding in the ED, though with stable vitals and no signs of infection. 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 Her medical history is otherwise significant for drug use, and she has no other significant surgical, family, or social history. [facility] Medical History Fetus with encephalocele, antepartum History of drug use Psoriasis (~1999) Spontaneous vaginal delivery Surgical History Anesthesia Status post wrist surgery (~2002) [place] teeth extracted Family History Father Age: 70 Mental health problem Bipolar 1 disorder Grandfather Mental health problem Suicide Diabetes mellitus Myocardial infarction Grandmother Hypertension High cholesterol History of multiple miscarriages Kidney stones Brother Depression Grandmother Emphysema of lung Grandfather Diabetes mellitus Mother Toshia infection Depression Family/Other Breast cancer Family/Other Leukemia Social History marital status: unmarried,living together household members: significant other 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) current occupational exposures/hazards: Yes special kathleen needs: No Smoking Status: Former smoker second hand exposure: Yes alcohol intake: former substance use type: former substance user Meds Home Medications and Allergies Home Medications Medication Instructions Recorded Confirmed Type folic acid 400 mcg tablet 0.4 mg PO DAILY 02/18/20 10/02/20 History prenat.vits,julianna,fkb-dxrt-blpeo 1 tab PO DAILY 02/18/20 10/02/20 History Allergies Allergy/AdvReac Type Severity Reaction Status Date / Time No Known Drug Allergies Allergy Verified 10/02/20 19:54 Review of Systems Constitutional Constitutional: Reports system reviewed and no additional complaints, except as documented Cardiovascular Cardiovascular: Reports system reviewed and no additional complaints, except as documented Respiratory Respiratory: Reports system reviewed and no additional complaints, except as documented Gastrointestinal Gastrointestinal: Reports as per HPI Genitourinary Genitourinary: Reports as per HPI Exam Vital Signs (past 8 hours): - 10/02/20 19:48 10/02/20 19:59 10/02/20 20:00 Temperature 99.9 F H Pulse Rate 90 86 88 Respiratory Rate 14 Blood Pressure 109/59 L 98/57 L Pulse Oximetry 98 98 98 Oxygen Delivery Method Room Air Const General: cooperative, healthy appearing and comfortable GI Palpation: No soft and No tender Other: Copious bright red bleeding on presentation, improving after administration of methergine though with ongoing passage of small clots. Skin General: no rashes or lesions noted Extrem General: normal to inspection Objective Labs Result Diagrams: 10/02/20 19:55 10/02/20 19:55 Labs: Laboratory Results - last 24 hr 10/02/20 10/02/20 10/02/20 19:55 19:55 19:55 WBC 10.2 D RBC 2.94 L Hgb 9.2 L Hct 26.6 L MCV 90.8 MCH 31.2 MCHC 34.3 RDW 17.8 H Plt Count 389 Neut % (Auto) 65.4 D Lymph % (Auto) 29.0 [place] % (Auto) 4.6 Eos % (Auto) 0.2 L Baso % (Auto) 0.8 Neut # (Auto) 6700 Lymph # (Auto) 3000 [place] # (Auto) 500 Eos # (Auto) 0 Baso # (Auto) 100 PT INR APTT Sodium 136 L Potassium 3.1 L Chloride 108 H Carbon Dioxide 24 BUN 13 Creatinine 0.62 Estimated GFR > 60.0 BUN/Creatinine Ratio 21.0 Glucose 132 H Calcium 8.7 Blood Type A Positive Antibody Screen Negative 10/02/20 19:55 WBC RBC Hgb Hct MCV MCH MCHC RDW Plt Count Neut % (Auto) Lymph % (Auto) [place] % (Auto) Eos % (Auto) Baso % (Auto) Neut # (Auto) Lymph # (Auto) [place] # (Auto) Eos # (Auto) Baso # (Auto) PT 11.2 INR 1.0 APTT 26 L D Sodium Potassium Chloride Carbon Dioxide BUN Creatinine Estimated GFR BUN/Creatinine Ratio Glucose Calcium Blood Type Antibody Screen Assessment & Plan Assessment and plan (1) Vaginal bleeding: Status: Acute Assessment & Plan narrative: This patient is admitted for recurrent vaginal bleeding on PPD#17. The patient has undergone EUA with vaginal laceration repair on PPD#10, and EUA and suction D&C on PPD#16. The patient's course is characterized by periods of 24 hours to several days with mild vaginal bleeding, followed by large bleeds of 500ccs or more of bright red, largely liquid blood and cramping. The differential is broad, including recurrent uteri ne atony with bleeding from the endometrium, arteriovenous malformation with intermittent bleeding, or bleeding from her vaginal laceration or a previously undiagnosed vaginal hematoma. Given the amount of bleeding at this presentation, she is being taken for repeat EUA, possible D&C, and we discussed that the differential is broad and so we would perform what was indicated if a new source of bleeding is discovered. We discussed risk of infection, scar tissue formation with uterine instrumentation, uterine perforation, and ongoing hemorrhage requiring blood transfusion. The patient vocalized understanding, and informed consent obtained and consents signed. - 2g Ancef to be administered en route to PACU
--- NOTE | 2020-10-02 21:20 | SUR.OPER ---
Lithotomy on padded OR bed, head on pillow, arms secured on padded arm boards at <90 degrees abduction. Legs secured in padded yellow fins stirrups.
[2020-10-02] MEDS: LACTATED RINGERS 1,000 ML 42 ML IV (21:34)
[2020-10-02] MEDS: CEFAZOLIN 2 GM/100 ML FROZ.PIGGY IV (21:35)
--- NOTE | 2020-10-02 22:11 | P.OP_ITS ---
Operative Date/Time/Diagnoses Date of procedure: 10/02/20 Time of procedure: 22:11 Pre-op diagnosis: hemorrhage Post-op diagnosis: same Procedure & Clinicians Procedure: exam under anesthesia, suction dilation and curettage Same procedure as scheduled: Yes Indications: recurrent hemorrhage Surgeon: Claudia Hwang Ratings Analyst: Davina Soares Anesthesia Type: General Operative Notes Findings: Intact perineal laceration, 8 week sized anteverted uterus. Mildly dilated cervix. Minimal ongoing uterine bleeding. Specimen(s): other (endocervical curettings) Estimated Blood Loss (mL): 50 Procedure in detail: After informed consent was obtained, the patient was taken to the operating room. General anesthesia was obtained without incident and she was placed in the dorsal lithotomy position and prepped and draped in the normal sterile fashion. An exam under anesthesia was performed with no vaginal hematomas noted and an intact and hemostatic perineal laceration repair. A speculum was placed in the vagina, and the anterior lip of the vagina grasped with a single toothed tenaculum. Hegar dilators were used to dilate the cervix to 7mm, with minimal pressure necessary. A 7mm suction tip was gently advanced to the fundus and connected to suction, with a small amount of dark old clot clot and bright red blood removed. A second pass was performed with similar results, and a careful, gentle pass with a sharp curette performed followed by one final pass with the suction with minimal further blood. No POCs were identified. Uterine bleeding was minimal, and a salcido balloon was placed into the uterus, gently advanced to the fundus, and inflated to 10ccs with sterile saline. At this point ,increased resistance was met and further inflation of the intrauterine salcido balloon was stopped. A salcido cather was placed in the bladder. The patient was taken to the PACU in stable condition. Complications: none Post-operative Disposition: Acute Care Plan for aftercare: Patient is for methergine series, intrauterine salcido balloon and bladder catheter at least until AM, antibiotics out of concern for endometritis given and multiple instrumentations.
--- NOTE | 2020-10-02 22:55 | SUR.PHASEI ---
pt transferred to acute care floor in stable condition, vss. pt talking to RN during transport. Bedside report given to ELY Campos. Transferred care of pt to ELY Campos.
[2020-10-02] MEDS: CLINDAMYCIN 900 MG/50 ML PIGGYBACK 50 MG IV (23:38)
[2020-10-02] MEDS: LACTATED RINGERS 1,000 ML 100 ML IV (23:38)
[2020-10-02] MEDS: IBUPROFEN 600 MG TABLET PO (23:50)
[2020-10-03] VITALS (10 sets, daily range): BP systolic 80–114; BP diastolic 41–56; PULSE 66–86; RESP 16–18; TEMP 36.2–37.3; O2SAT 99–100
[2020-10-03] MEDS: METHYLERGONOVINE 0.2 MG TABLET PO ×4 (00:13→12:32)
[2020-10-03] MEDS: GENTAMICIN 290 MG in SODIUM CHLORIDE 0.9% 100 ML 107.25 ML IV (00:46)
[2020-10-03 05:29] LABS: Add Manual Diff / Slide Review NO; Basophils Absolute Auto 0 /uL (0-100); Basophils Percent Auto 0.2 % (0-2); Eosinophils Absolute Auto 0 /uL (0-450); Hematocrit 21.9 % (36-46); Hemoglobin 7.5 g/dL (12.0-16.0); Lymphocytes Absolute Auto 600 /uL (1100-4500); Lymphocytes Percent Auto 8.1 % (25-40); Mean Corpuscular HGB Conc 34.2 % (30-36); Mean Corpuscular Hemoglobin 31.3 PG (26-34); Mean Corpuscular Volume 91.4 fL (80-100); Monocytes Absolute Auto 100 /uL (0-900); Monocytes Percent Auto 0.7 % (3-14); Neutrophils Absolute Auto 6500 /uL (1500-7000); Platelet Count 307 X10^3/uL (150-400); Red Cell Distribution Width 18.5 % (11.6-14.8); White Blood Cell Count 7.2 X10^3/uL (4.5-11.0)
[2020-10-03] MEDS: CLINDAMYCIN 900 MG/50 ML PIGGYBACK 50 MG IV (06:24)
--- NOTE | 2020-10-03 06:37 | PC.NURSE ---
pt labs came back H/H is 7.5/21.9 K:3.1 (from last night) pt is asymptomatic and states I feel good. This creative services writer notified MD, no new orders. As per MD, she will assess patient later when she does her rounds
--- NOTE | 2020-10-03 08:13 | CM.DPC ---
Addendum entered by China Nix LPN 10/03/20 12:47: Pt being transported by ambulance to [facility]. peanut picker planned for about 1330. Addendum entered by China Nix LPN 10/03/20 10:27: Dr. Hwang is here and working on a transfer of pt to higher level of care. She has an accepting physician and is coordinating the d/c with RN coordinator Martha. Original Note: DCP: continued: pt with a d/c to home yesterday afternoon and a return later in the evening for syncopal episode with a resumption of post bleed. Pt was taken to surgery again last night with Dr. Soares assisting Dr. Hwang. P. remains home with Life Partner Eugene and baby when stable for same. Baby is being cared for by family; pt is pumping. pt's initial admission was on 10/02 just after midnight and is under [id number]. As noted, pt was only home for a few hours before returning night of 10/02.
--- NOTE | 2020-10-03 09:09 | PM.PN.1 ---
Subjective Subjective Date Patient Seen: 10/03/20 Time Patient Seen: 08:45 Interval history: Patient reports feeling well this AM, tired but not dizzy, no palpitations, no chest pain or trouble breathing, no fevers or chills. Minimal vaginal bleeding overnight. Tolerating PO, minimal cramping pain well controlled with ibuprofen. Exam Vital Signs (past 8 hours): - 10/03/20 04:03 10/03/20 07:56 10/03/20 08:36 Temperature 97.1 F L 98.1 F Pulse Rate 75 66 68 Respiratory Rate 16 18 Blood Pressure 84/56 L 80/48 L 90/55 L Pulse Oximetry 99 100 100 Oxygen Delivery Method Room Air Oxygen Flow Rate 0 Const General: cooperative, healthy appearing and comfortable Resp Effort & Inspection: normal respiratory effort Auscultation: clear to auscultation bilaterally Cardio Rate: regular rate Rhythm: regular rhythm GI Palpation: soft and No tender External Female Exam: normal external appearance Other: Scant vaginal bleeding through intrauterine salcido balloon, no bleeding on pad. Extrem General: normal to inspection Objective Labs Result Diagrams: 10/03/20 04:43 10/02/20 19:55 Labs: Laboratory Results - last 24 hr 10/02/20 10/02/20 10/02/20 19:55 19:55 19:55 WBC 10.2 D RBC 2.94 L Hgb 9.2 L Hct 26.6 L MCV 90.8 MCH 31.2 MCHC 34.3 RDW 17.8 H Plt Count 389 Neut % (Auto) 65.4 D Lymph % (Auto) 29.0 [place] % (Auto) 4.6 Eos % (Auto) 0.2 L Baso % (Auto) 0.8 Neut # (Auto) 6700 Lymph # (Auto) 3000 [place] # (Auto) 500 Eos # (Auto) 0 Baso # (Auto) 100 PT INR APTT Sodium 136 L Potassium 3.1 L Chloride 108 H Carbon Dioxide 24 BUN 13 Creatinine 0.62 Estimated GFR > 60.0 BUN/Creatinine Ratio 21.0 Glucose 132 H Calcium 8.7 Blood Type A Positive Antibody Screen Negative Crossmatch See Detail 10/02/20 10/03/20 19:55 04:43 WBC 7.2 RBC 2.40 L Hgb 7.5 L Hct 21.9 L MCV 91.4 MCH 31.3 MCHC 34.2 RDW 18.5 H Plt Count 307 Neut % (Auto) 91.0 H D Lymph % (Auto) 8.1 L D [place] % (Auto) 0.7 L Eos % (Auto) 0.0 L Baso % (Auto) 0.2 Neut # (Auto) 6500 Lymph # (Auto) 600 L [place] # (Auto) 100 Eos # (Auto) 0 Baso # (Auto) 0 PT 11.2 INR 1.0 APTT 26 L D Sodium Potassium Chloride Carbon Dioxide BUN Creatinine Estimated GFR BUN/Creatinine Ratio Glucose Calcium Blood Type Antibody Screen Crossmatch [facility] Medical History Fetus with encephalocele, antepartum History of drug use Psoriasis (~1999) Spontaneous vaginal delivery Surgical History Anesthesia Status post wrist surgery (~2002) [place] teeth extracted Family History Father Age: 70 Mental health problem Bipolar 1 disorder Grandfather Mental health problem Suicide Diabetes mellitus Myocardial infarction Grandmother Hypertension High cholesterol History of multiple miscarriages Kidney stones Brother Depression Grandmother Emphysema of lung Grandfather Diabetes mellitus Mother Toshia infection Depression Family/Other Breast cancer Family/Other Leukemia Social History marital status: unmarried,living together household members: significant other occupational status: employed ([employer]) current occupational exposures/hazards: Yes special kathleen needs: No Smoking Status: Former smoker second hand exposure: Yes alcohol intake: former substance use type: former substance user Assessment & Plan Assessment & Plan narrative: This patient is admitted for her fourth episode of bleeding, now day 18. The patient's bleeding is definitively uterine, though the patient has a thin endometrial stripe and no evident POCs on suction D&C last night. Her course is characterized by 1-4 days of minimal vaginal bleeding after each episode, followed by sudden, rapid loss of 500+ccs of liquid red blood which generally resolves entirely within a few hours, though is associated with a drop in hgb and anemia symptoms. The patient has been being treated for endometritis out of concern that this could be a contributing factor, though this AM, she has no clinical signs of infection. She continues on a methergine series and has an intrauterine salcido balloon with minimal ongoing bleeding. Uterine atony, infection, and vaginal wall bleeding all seem less likely now as a cause of her bleeding, and concern is high for an underlying structural abnormality such as arteriovenous malformation. We discussed that at this point, I would recommend transfer to a center with more advance imaging capabilities and potential for treatments such as uterine artery embolization, and the patient vocalized understanding and agrees with this plan. Quality VTE Deep Vein Thrombosis/Pulmonary Embolism Present on Admission: No
--- NOTE | 2020-10-03 09:56 | TAR.TRANSNT ---
Actual retrieval time was noted to be 938.
--- NOTE | 2020-10-03 10:34 | PM.DS.1 ---
History of Present Illness History of Present Illness Date Patient Seen: 10/03/20 Time Patient Seen: 10:36 Date of Onset of Symptoms: 09/24/20 Chief complaint: Fainted Narrative: Donya Johns is a 35 year old female 18 days status post otherwise uncomplicated vaginal delivery who presented to the ER with recurrent bright red vaginal bleeding. Patient was seen on Sunday, 09/24 with heavy bright red vaginal bleeding, hypotension, and was taken to the OR for exam under anesthesia where a posterior wall vaginal laceration containing a suspected arterial bleeder was repaired. The patient had good hemostasis at that time, was transfused due to degree of bleeding she had had previously, and discharged. She returned to the ED on PPD#16 with a gush of approximately 500ccs of bright red blood with ongoing brisk red bleeding and a drop in her hgb. Bedside US showed possible retained POCs and she was taken to the OR for exam under anesthesia and suction D&C. A scant amount of possible tissue vs. clot was removed. She had minimal bleeding for the rest of her stay and was discharged home midday on PPD#17, and reports that that evening, she again had a gush of liquid, bright red blood with only a few small clots and cramping. She had an episode of syncope and returned to the ED, where she again had 400-500ccs of bright red bleeding in the ED, though with stable vitals and no signs of infection. She was taken for EUA and repeat suction D&C, though the bleeding had stopped by the time of the OR and minimal clot was removed during the D&C. The patient continues on a methergine series, antibiotics for presumed endometritis, and has an intrauterine salcido balloon. 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 Her medical history is otherwise significant for drug use, and she has no other significant surgical, family, or social history. Discharge Providers Provider Date of admission: 10/02/20 21:15 Discharge Date: 10/03/20 Primary care physician: Jocy Rose MD Discharge provider: Claudia Hwang MD Summary Hospital Course Discharge Diagnosis: Recurrent hemorrhage Hospital Course: Transfer to Status at Discharge Cognitive/behavioral status at discharge: oriented Functional status at discharge: independent ambulation Overall status at discharge: patient is not back to baseline Exam Vital Signs (past 8 hours): - 10/03/20 04:03 10/03/20 07:56 10/03/20 08:36 Temperature 97.1 F L 98.1 F Pulse Rate 75 66 68 Respiratory Rate 16 18 Blood Pressure 84/56 L 80/48 L 90/55 L Pulse Oximetry 99 100 100 10/03/20 09:44 10/03/20 09:48 10/03/20 10:10 Temperature 98.7 F 98.7 F 99.0 F Pulse Rate 70 70 86 Respiratory Rate 16 16 16 Blood Pressure 84/47 L 84/47 L 114/56 L Pulse Oximetry 100 Oxygen Delivery Method Room Air Oxygen Flow Rate 0 Const General: cooperative and comfortable GI Palpation: soft and No tender Objective Labs Result Diagrams: 10/03/20 04:43 10/02/20 19:55 Labs: Laboratory Results - last 24 hr 10/02/20 10/02/20 10/02/20 19:55 19:55 19:55 WBC 10.2 D RBC 2.94 L Hgb 9.2 L Hct 26.6 L MCV 90.8 MCH 31.2 MCHC 34.3 RDW 17.8 H Plt Count 389 Neut % (Auto) 65.4 D Lymph % (Auto) 29.0 [place] % (Auto) 4.6 Eos % (Auto) 0.2 L Baso % (Auto) 0.8 Neut # (Auto) 6700 Lymph # (Auto) 3000 [place] # (Auto) 500 Eos # (Auto) 0 Baso # (Auto) 100 PT INR APTT Sodium 136 L Potassium 3.1 L Chloride 108 H Carbon Dioxide 24 BUN 13 Creatinine 0.62 Estimated GFR > 60.0 BUN/Creatinine Ratio 21.0 Glucose 132 H Calcium 8.7 Blood Type A Positive Antibody Screen Negative Crossmatch See Detail 10/02/20 10/03/20 19:55 04:43 WBC 7.2 RBC 2.40 L Hgb 7.5 L Hct 21.9 L MCV 91.4 MCH 31.3 MCHC 34.2 RDW 18.5 H Plt Count 307 Neut % (Auto) 91.0 H D Lymph % (Auto) 8.1 L D [place] % (Auto) 0.7 L Eos % (Auto) 0.0 L Baso % (Auto) 0.2 Neut # (Auto) 6500 Lymph # (Auto) 600 L [place] # (Auto) 100 Eos # (Auto) 0 Baso # (Auto) 0 PT 11.2 INR 1.0 APTT 26 L D Sodium Potassium Chloride Carbon Dioxide BUN Creatinine Estimated GFR BUN/Creatinine Ratio Glucose Calcium Blood Type Antibody Screen Crossmatch REPLACED BY [facility] Medical History Fetus with encephalocele, antepartum History of drug use Psoriasis (~1999) Spontaneous vaginal delivery Surgical History Anesthesia Status post wrist surgery (~2002) [place] teeth extracted Family History Father Age: 70 Mental health problem Bipolar 1 disorder Grandfather Mental health problem Suicide Diabetes mellitus Myocardial infarction Grandmother Hypertension High cholesterol History of multiple miscarriages Kidney stones Brother Depression Grandmother Emphysema of lung Grandfather Diabetes mellitus Mother Toshia infection Depression Family/Other Breast cancer Family/Other Leukemia Social History marital status: unmarried,living together household members: significant other occupational status: employed ([employer]) current occupational exposures/hazards: Yes special kathleen needs: No Smoking Status: Former smoker second hand exposure: Yes alcohol intake: former substance use type: former substance user Discharge Assessment & Plan Assessment and Plan Assessment: This patient has unexplained recurrent hemorrhages, now with high suspicion for placental bed abnormality or AVM. She is being transferred to [facility]. Plan of Treatment: Patient accepted for transfer at , by Dr. Iesha Ye. - Patient to be transferred with methergine series to continue, dose #4 administered at 7:53 AM - Patient continues to have intrauterine salcido balloon with 10ccs sterile saline in place, minimal drainage - Patient continues clindamycin 900mg q8, last administered at 6:24 on 10/03, and gentamicin 5mg/kg q24, administered at 00:46, 10/03 for any underlying endometritis - Patient has salcido catheter in place - Patient is s/p 1u pRBCs this AM, for a total of 4 units since course began Discharge Plan Discharge Plan Disposition: er Acute Care Hospital Discharge orders & Medications Follow up/Referrals: Jocy Rose MD [Primary Care Provider] - Discharge Data Primary Care Provider: Jocy Rose Attending Provider: Claudia Hwang VTE Deep Vein Thrombosis/Pulmonary Embolism Present on Admission: No
--- NOTE | 2020-10-03 13:14 | PC.NURSE ---
Called and gave report to Davina GRAVES at [facility]. Informed her of pt's current medical history/complications, medications given, h/h results, and blood transfusion info, drains and lines present- IV left in place in R AC. All pt belongings packed into personal bag. Report given to EMS member, Ana. Pt transferred with assistance to soo. Nikolai drain, Grewal catheter, and IV left in place, EMS aware. Discharge packet given to Ana. Pt belongings given to pt. Pt left via gurney and EMS members.
== END 2020-10-03 13:21 | disposition short-term general hospital (02) | DRG 769 ==
LOC: ED 21:02 → AC 23:31
PROVIDERS: Admitting Provider Obstetrics & Gynecology; Emergency Provider Emergency Medicine; PCP Family Medicine; Referring Provider Emergency Medicine; Visit Provider Obstetrics & Gynecology
PROC: 0W3R7ZZ Control Bleeding in Genitourinary Tract, Via Natural or Artificial Opening (ICD-10-PCS; CPT 58120; principal; 2020-10-02 21:00)
DX: O72.2 Delayed and secondary postpartum hemorrhage (principal); O86.12 Endometritis following delivery; D62 Acute posthemorrhagic anemia; R55 Syncope and collapse
CPT/HCPCS: 36415; 36430; 59160; 76857; 80048; 80053; 85025; 85610; 85730; 86850; 86900; 86901; 87635; 87797; 96360; 96361; 96372; 96374; 99221; 99283; 99284; C9803; G0378; P9016; J0330; J0690; J1100; J2210; J2250; J2405; J2704; J3010; S0191

== ENCOUNTER → 2020-10-08 13:54 | Outpatient (CLI) | payer OTHER, SELFPAY ==
[2020-10-02 22:57] VITALS: BMI 26.6
[2020-10-08 14:58] LABS: Add Manual Diff / Slide Review NO; Basophils Absolute Auto 100 /uL (0-100); Basophils Percent Auto 0.8 % (0-2); Eosinophils Absolute Auto 700 /uL (0-450); Eosinophils Percent Auto 10.2 % (2-4); Hematocrit 30.3 % (36-46); Hemoglobin 10.1 g/dL (12.0-16.0); Lymphocytes Absolute Auto 1600 /uL (1100-4500); Lymphocytes Percent Auto 24.5 % (25-40); Mean Corpuscular HGB Conc 33.3 % (30-36); Mean Corpuscular Hemoglobin 31.3 PG (26-34); Monocytes Absolute Auto 400 /uL (0-900); Monocytes Percent Auto 6.7 % (3-14); Neutrophils Absolute Auto 3800 /uL (1500-7000); Neutrophils Percent Auto 57.8 % (50-75); Platelet Count 392 X10^3/uL (150-400); Red Blood Cell Count 3.22 X10^6/uL (4.0-5.2); Red Cell Distribution Width 17.9 % (11.6-14.8); White Blood Cell Count 6.6 X10^3/uL (4.5-11.0)
== END ==
PROVIDERS: PCP Family Medicine; Referring Provider Family Medicine; Visit Provider Family Medicine
DX: N93.9 Abnormal uterine and vaginal bleeding, unspecified (principal); O72.1 Other immediate postpartum hemorrhage
CPT/HCPCS: 36415; 84443; 85025

== ENCOUNTER → 2020-11-08 10:41 | Outpatient (CLI) | payer OTHER, SELFPAY ==
[2020-10-02 22:57] VITALS: BMI 26.6
--- NOTE | 2020-11-08 10:42 | DI.US.S_ITS ---
PROCEDURE: US PELVIC COMPLETE INDICATIONS: FOLLOW-UP HEMORRHAGE TECHNIQUE: Real-time scanning was performed of the pelvic organs, with image documentation. Additional endovaginal scanning was necessary due to incomplete visualization of the adnexal and endometrial structures by transabdominal scanning. COMPARISON: [facility], PELVIC LIMITED, 10/02/2020, 20:48. [facility], PELVIC LIMITED, 10/02/2020, 0:55. [facility], PELVIC COMPLETE, 07/18/2013, 10:54. FINDINGS: Uterus: Uterus is normal in size at 8.2 x 3.2 x 5.3 cm. The endometrium measures 2-3 mm in combined thickness. Nonvascular fluid can be seen along the endometrial stripe. There is a subserosal fibroid seen posteriorly and on the right that measures up to 2.3 cm. Ovaries: The right ovary measures 2.8 x 1.6 x 2.4 cm. The left ovary measures 3 x 1.6 x 1.2 cm. The ovaries have a normal sonographic appearance. No adnexal masses are seen. Other: No pathologic free abdominal or pelvic fluid. IMPRESSION: No findings of retained products of conception can be seen. Normal with of the endometrial stripe, yet with fluid seen along the endometrial stripe. Dictated by: Cody Andrade M.D. on 11/08/2020 at 11:49 Approved by: Cody Andrade M.D. on 11/08/2020 at 11:51
[2020-11-08 12:16] LABS: Thyroid Stimulating Hormone 0.807 uIU/mL (0.47-4.68)
== END ==
PROVIDERS: PCP Family Medicine; Referring Provider Family Medicine; Visit Provider Family Medicine
DX: O72.1 Other immediate postpartum hemorrhage (principal); E03.9 Hypothyroidism, unspecified
CPT/HCPCS: 36415; 76830; 76856; 84443

== ENCOUNTER → 2022-08-23 11:42 | Outpatient (CLI) | payer OTHER, MEDICAID, SELFPAY ==
[2020-10-02 22:57] VITALS: BMI 26.6
--- NOTE | 2022-08-23 11:45 | DI.US.S_ITS ---
PROCEDURE: US OB >= 14 WEEKS FETUS INDICATIONS: ANATOMY SCAN OUTSIDE/PRIOR DATING DATA: Last menstrual period (LMP): Unknown LMP-based estimated date of delivery (IRVIN): Unknown First dating scan (date and location): Unknown Estimated date of delivery (IRVIN) from first dating scan: 12/27/2022 The calculations are made using the working IRVIN of 12/27/2022. TECHNIQUE: Real-time scanning was performed of the fetus, with image documentation and biometric measurements. Endovaginal scanning: Not indicated COMPARISON: [facility], OB >= 14 WEEKS FETUS, 05/14/2020, 8:06. FINDINGS: General: A single living intrauterine gestation is present. Presentation: Breech Placenta: Placental position is posterior, without previa. Amniotic fluid index: 12.9 cm, normal range is 5-24 cm. Single deepest vertical pocket is 3.5 cm. heart rate: 149 beats per minute. Maternal cervical canal: 4.4 cm long. Normal lower limit is 2.5 cm. biometrics: Biparietal diameter: 5.3 cm, 22 weeks, 0 day. Head circumference: 19.2 cm, 21 weeks, 3 days. Abdominal circumference: 16.4 cm, 21 weeks, 3 days. Femur length: 3.8 cm, 22 weeks, 1 day. Clinically estimated gestational age: 22 weeks, 0 day. Composite gestational age from present scan: 21 weeks, 5 days. Estimated weight and percentile: 447 g, 31%. Anatomic survey: Neuro: Ventricles are non-dilated at less than 10 mm. Cisterna magna is normal at 3-11 mm. Cerebellum is normal in size and morphology. Nuchal skin fold: Normal at less than 6 mm between 14-21 weeks gestational age. Face: Nose and lips, facial profile are normal. Spine: No evidence for spina bifida. Heart: 4-chambered heart is present, with normal ventricular outflow tracts. Diaphragm: Diaphragm is intact. Stomach: Left-sided stomach is present. Kidneys: No hydronephrosis. Normal is less than 5 mm in 2nd trimester, less than 7 mm in 3rd trimester. Cord: 3-vessel cord has orthotopic insertion. Bladder: Normal in size. Extremities: All 4 extremities identified. A 4.2 x 4.1 x 4.4 cm intramural fibroid is seen in posterior myometrium of lower uterine segment. IMPRESSION: 1. Single live intrauterine gestation with fetus in breech presentation. heart rate is 149 beats per minute. Normal amount of amniotic fluid. Estimated weight is at 31%. Normal growth. 2. Normal anatomic survey. 3. Posterior uterine fibroid as above We strive to produce accurate, complete, and clear reports of imaging services. To assist us in improving patient care, this report was composed using standard report templates and voice recognition software. Therefore, it may contain abnormal punctuation, insertions and/or omissions. Occasional wrong-word or sound-alike substitutions may occur. Though we review the report and make efforts to correct it, we do recommend that the report be read carefully in proper context to recognize any text inaccuracies. Dictated by: Fuentes Fernandez M.D. on 08/23/2022 at 14:34 Approved by: Fuentes Fernandez M.D. on 08/23/2022 at 14:37
== END ==
PROVIDERS: PCP Family Medicine; Referring Provider Nurse Practitioner Obstetrics & Gynecology; Visit Provider Nurse Practitioner Obstetrics & Gynecology
DX: O34.12 Maternal care for benign tumor of corpus uteri, second trimester (principal); D25.1 Intramural leiomyoma of uterus; Z3A.21 21 weeks gestation of pregnancy
CPT/HCPCS: 76811

== ENCOUNTER 2022-12-23 03:54 | Inpatient (IN) | payer OTHER, MEDICAID, SELFPAY ==
[2020-10-02 22:57] VITALS: BMI 26.6
--- NOTE | 2022-12-23 04:30 | P.HPOB_ITS ---
OB HPI Date/Time Date of admission: 12/23/22 Date Patient Seen: 12/23/22 Time Patient Seen: 04:20 History of Present Condition Chief complaint: Labor : 4 Para: 1 Estimated Date of Delivery: 12/30/22 Estimated Gestational Age (weeks): 39.0 Narrative: Donya Johns is a 37 year old female @ 39wks by LMP concordant w/ 7wk US who presents for evaluation of labor. Awoke with strong but irregular contractions at 0215. noticed leaking clear fluid at 0318. Now breathing through strong contractions every 3-4 minutes and continuing to leak clear fluid. Desires a low intervention . uncomplicated care w/ CNMs. Partner is present and supportive. History of Present care: good care, initiated at week # (7), number of visits (8) and pounds weight gain (14) Dating criteria: LMP confirmed by 1st trimester US Ultrasounds: normal mid trimester US Obstetrical complications: none Medical complications: none Preadmission Labs Blood type: A (+) positive -: Antibody screen: negative, GBS status: unknown, HBsAG: negative, HIV: negative and RPR/VDLR: negative -: Chlamydia screen: not detected and Gonorrhea screen: not detected -: Rubella: immune and Varicella: immune HCT: 33.9 HCAB: negative 1 hr GTT: 107 Prior (ies) History: Early SAB x1 09/19/2019: IOL @ 24wks @ for severe encephalocele 09/15/2020: NSVB @ [id number], male, Leonides, 5#15oz, IOL for FGR, multiple delayed PPHs with multiple D&Cs-> Pts course has been complicated by repeat hemorrhage. On 09/24 she presented to the ED with profuse vaginal bleeding. She was taken to the OR, where her laceration was found to have opened. She had a brisk arterial bleed at the site of the laceration. This was repaired with excellent hemostasis. She did not have significant bleeding from the uterus at the time. She was transfused 2 units PRBCs during her hospitalization. She was discharged home stable. On 09/30 she again came back to the ED due to vaginal bleeding. She was noted to have minimal vaginal bleeding in the ED, with rising H/H, and was discharged home. The pt returned again 10/01 with bleeding. D&C was performed after bedside ultrasound was concerning for possible clot retention. A small amount of retained membranes were removed. The next day, the pt was transfused 1 unit PRBCs due to symptomatic anemia. She was stable, with bleeding minimal, and discharged home. The pt then returned to the ED a final time on 10/02 with vaginal bleeding after a syncopal episode at home. She underwent repeat D&C, with small clot removed. She was started on methergine, with salcido balloon placed. She was transferred to the due to concern for placental bed abnormality or AVM with recurrent hemorrhages. At the , the pts bleeding remained stable. MRA revealed prominent vasculature arising from the left internal iliac extending along the left cervical parametrium and left vaginal wall and heterogeneous endometrial contents. She was discharged home after 2 nights, with no recurrence of bleeding. Evaluation Evaluation Baseline heart rate: 135 Variability: Moderate (11-25) monitor accelerations: Present Monitor Decelerations: Variable Contraction Frequency (minutes): 4 Uterine Contraction Intensity: Strong/Firm Status: Category ll (overall reassuring) Dilation (cm): 4 Effacement (%): 80 Dilation: 3-4 cm Effacement: >/=80% station: -1 Position of cervix: posterior Consistency: soft Gross score: 9 PFSH Medical History (Updated 12/23/22 @ 04:41 by Marcella Dela Cruz CNM) Fetus with encephalocele, antepartum History of drug use hemorrhage Psoriasis (~1999) Spontaneous vaginal delivery Surgical History Anesthesia Status post wrist surgery (~2002) [place] teeth extracted Family History Father Age: 72 Mental health problem Bipolar 1 disorder Grandfather Mental health problem Suicide Diabetes mellitus Myocardial infarction Grandmother Hypertension High cholesterol History of multiple miscarriages Kidney stones Brother Depression Grandmother Emphysema of lung Grandfather Diabetes mellitus Mother Toshia infection Depression Family/Other Breast cancer Family/Other Leukemia Social History marital status: unmarried,living together household members: significant other occupational status: employed ([employer]) current occupational exposures/hazards: Yes special kathleen needs: No Smoking Status: Former smoker second hand exposure: Yes alcohol intake: former substance use type: former substance user Meds Home Medications and Allergies Home Medications Medication Instructions Recorded Confirmed Type folic acid 400 mcg tablet 0.4 mg PO DAILY 02/18/20 10/03/20 History prenat.vits,julianna,[id number] 1 tab PO DAILY 02/18/20 10/03/20 History Allergies Allergy/AdvReac Type Severity Reaction Status Date / Time No Known Drug Allergies Allergy Verified 10/02/20 19:54 Review of Systems Review of Systems ROS: Yes All systems reviewed with the patient and are negative except as otherwise documented OB Exam Vital signs Blood Pressure: 109/61 Pulse Rate: 76 Temperature: 97.5 F Resp Effort & Inspection: normal respiratory effort and able to speak in complete sentences Auscultation: clear to auscultation bilaterally Cardio Rate: regular rate Rhythm: regular rhythm Presentation: vertex Amniotic Fluid: clear Objective Labs 12/23/22 04:36 Assessment and Plan Assessment and Plan Assessment and Plan narrative: A: Term primipara Approaching active labor AMA (<40) No indication for GBS prophylaxis Complicated hx of PPH (P2) Cat II FHR, overall reassuring P: Admit, routine labor orders. May switch to intermittent auscultation. Expectant management of labor. Will recommend IV antibiotics if ROM>18 hours or maternal fever, per ACOG Guidelines. Labor support PRN. Reassess in 4 hours or sooner, PRN. Will consult oB in am regarding patient's complicated hx of PPH.
[2022-12-23 04:46] VITALS: BP 109/61; PULSE 76; TEMP 36.4
[2022-12-23 05:01] LABS: Add Manual Diff / Slide Review NO; Basophils Absolute Auto 100 /uL (0-100); Basophils Percent Auto 0.8 % (0-2); Eosinophils Absolute Auto 100 /uL (0-450); Eosinophils Percent Auto 0.9 % (2-4); Hematocrit 38.1 % (36-46); Hemoglobin 13.2 g/dL (12.0-16.0); Lymphocytes Absolute Auto 2700 /uL (1100-4500); Lymphocytes Percent Auto 23.2 % (25-40); Mean Corpuscular HGB Conc 34.7 % (30-36); Mean Corpuscular Hemoglobin 33.4 PG (26-34); Mean Corpuscular Volume 96.2 fL (80-100); Monocytes Absolute Auto 700 /uL (0-900); Monocytes Percent Auto 6.4 % (3-14); Neutrophils Absolute Auto 7900 /uL (1500-7000); Neutrophils Percent Auto 68.7 % (50-75); Platelet Count 224 X10^3/uL (150-400); Red Blood Cell Count 3.96 X10^6/uL (4.0-5.2); Red Cell Distribution Width 13.7 % (11.6-14.8); White Blood Cell Count 11.5 X10^3/uL (4.5-11.0)
[2022-12-23 05:06] VITALS: BP 109/61
[2022-12-23] MEDS: LACTATED RINGERS 1,000 ML 999 ML IV (05:11)
--- NOTE | 2022-12-23 05:35 | PM.AN.REGBLK ---
Regional Block Pre-procedure Procedure: Continuous Lumbar Epidural for L&D Attending OB provider: Marcella Dela Cruz PMH/ROS narrative: at 39 weeks, no complications. ROS normal. PMH significant for h/o post- hemorrhage. ASA Class: II Labs: Hct 38.1 % (36-46) 12/23/22 04:36 Plt Count 224 X10^3/uL (150-400) 12/23/22 04:36 Medications: Current Medications Generic Name Dose Route Start Last Admin Trade Name Freq PRN Reason Stop Dose Admin Carboprost Tromethamine 250 mcg 12/23/22 04:23 Carboprost 250 Mcg/Ml Ampul IM Q90M PRN Bleeding Fentanyl 100 mcg 12/23/22 04:23 Fentanyl 100 Mcg/2 Ml Inj IV Q1H PRN Pain, Severe (7-10) Oxytocin/Lactated Ringer's 30 unit in 500 mls @ 200 mls/hr 12/23/22 04:23 Oxytocin Premix IV CONT PRN Bleeding Protocol Tranexamic Acid 1,000 mg/ 100 mls @ 200 mls/hr 12/23/22 04:23 Sodium Chloride IV NOW PRN Bleeding Lactated Ringer's 1,000 mls @ 100 mls/hr 12/23/22 04:30 Lactated Ringers IV CONT SHIRIN Methylergonovine Maleate 0.2 mg 12/23/22 04:23 Methylergonovine 0.2 Mg Tablet PO Q6HR PRN Heavy Bleeding Methylergonovine Maleate 0.2 mg 12/23/22 04:23 Methylergonovine 0.2 Mg/Ml Vial IM NOW PRN Bleeding Misoprostol 800 mcg 12/23/22 04:23 Misoprostol 200 Mcg Tablet OK NOW PRN Bleeding Misoprostol 400 mcg 12/23/22 04:23 Misoprostol 200 Mcg Tablet SL NOW PRN Bleeding Naloxone HCl 0.2 mg 12/23/22 04:23 Naloxone 0.4 Mg/Ml Vial IV Q2MIN PRN Opiate Reversal Oxytocin 10 unit 12/23/22 04:23 Oxytocin 10 Unit/Ml Vial IM NOW PRN Bleeding Allergies: Allergies Allergy/AdvReac Type Severity Reaction Status Date / Time No Known Drug Allergies Allergy Verified 10/02/20 19:54 Procedure Insertion date: 12/23/22 Insertion time: 04:55 Prep/Local: betadine x3 and 1% lidocaine Interspace: L2-3 Patient position: sitting Needle: 18 gauge Hustead (CSE: 27g Pencan through Hustead, clear CSF, 1mL 0.25% MPF bupiv) Loss of resistance with: saline WALDEMAR at (cm): 5 Catheter placed at SKIN (cm): 10 Catheter in SPACE (cm): 5 Insertion: No CSF, No Blood, No Paresthesia with insertion, No Paresthesia with injection and No Test dose reaction Initial Medications TEST DOSE time: 06:00 TEST DOSE: 1.5% lidocaine with epinephrine 1:200k (mL): 3 BOLUS DOSE time: 06:11 BOLUS DOSE (mL): 4 BOLUS DOSE med: other (infusate) Infusion INFUSION: 0.125% bupivacaine and with fentanyl 2 mcg/mL Initial rate (mL/hr): 6 Subsequent interventions: Post-procedure Anesthesia time START: 05:49 Anesthesia time END: 10:19 Post-procedure Anesthesia Assessment: Yes CV function: HR/BP stable, Yes Resp function: RR/sat/airway adequate, Yes Post-op hydration adequate, Yes Pain control adequate, Yes Nausea & vomiting absent, Yes Temperature > 36 C, Yes Mental status appropriate and No Anesthesia complications
[2022-12-23] MEDS: FENT 2MCG/ML BUPIV 0.125% EPI 200 MCG/100 ML PLAST..BAG 6 MCG EPIDURAL (06:11)
[2022-12-23] MEDS: LACTATED RINGERS 1,000 ML 100 ML IV (06:17)
--- NOTE | 2022-12-23 10:43 | PM.OBPRVD ---
Labor & Delivery Delivery date: 12/23/22 Intrapartal Events: None Cervical ripening method: none Induction method: none Delivery monitor: external FHT and external uterine Route of delivery: L&D Laceration Description: Vaginal - 1st Degree Delivery repair: chromic (3.0) Quantitative Blood Loss: 100 Anesthesia Type: Epidural Narrative: Donya received an epidural at 7cm and was able to labor comfortably to C/C/0 when pushing was initiated. Strong maternal efforts led to steady descent of vertex. Cat II FHR for recurrent variables at the end of first stage and throughout second stage of labor. FHR maintained moderate variability and was overall reassuring. NSVB of a vigorous baby girl in direct OA position with CNM and FOB hands on delivery. was placed on maternal abdomen for drying and skin to skin. Patient declined active management of the third stage of labor despite counseling and hx of delayed hemorrhage. After cessation of pulsation, the cord was double clamped by CNM and cut by FOB. Gentle cord traction and a single maternal push led to spontaneous, Schultze delivery of an apparently intact placenta, membranes and 3VC. Fundus immediately firm and bleeding minimal. A short, hemostatic, 1st degree, vaginal laceration was repaired for approximation with a single figure of eight with 3.0 Chromic. QBL 100mL. Both mother and baby stable and skin to skin as I left the room. [place] Baby 1: Infant gender: Female Presentation: vertex Placenta delivery description: Spontaneous score (1 min): 8 score (5 min): 9 weight: 3.271 kg Plan for aftercare: Routine care
[2022-12-23] MEDS: KETOROLAC 30 MG/ML VIAL IV (11:34)
[2022-12-23] MEDS: DERMOPLAST SPRAY 20% 60 ML 1 SPRAY TOP (11:35)
--- NOTE | 2022-12-23 12:31 | P.DS_ITS ---
Discharge Providers Provider Date of admission: 12/23/22 03:54 Discharge Date: 12/23/22 Primary care physician: Jocy Rose MD Consults: 12/24/22 10:39 Consult to Handbook Writer Routine Comment: Discharge provider: Marcella Dela Cruz CNM Summary Hospital Course Date Patient Seen: 12/23/22 Time Patient Seen: 14:30 Diagnoses: O70.0 Hospital Course: Day of delivery: Stable 4 hours s/p NSVB with 1st degree vaginal laceration. Vaginal bleeding has been scant. Donya is voiding (x2), ambulating and independently. She is tolerating a general diet and her pain is minimal. Her partner, Eugene, has continued to be present and supportive. They are eager for discharge to home [facility] and plan to bring their in tomorrow morning for routine screenings. Peripartum Data Infant Delivery Method: Natural Vaginal Laceration Description: Vaginal - 1st Degree Episiotomy description: None 1: Gender: Female Disposition of : home Discharge Diagnosis (1) First degree perineal laceration during delivery: Status: Acute Problem Details: routine immediate course Status at Discharge Cognitive/behavioral status at discharge: oriented and calm Functional status at discharge: independent ambulation Time Spent with Patient Time attestation: Total time spent providing and/or coordinating discharge services: Time spent: Less than 30 minutes Objective Labs 12/23/22 04:36 Labs: Laboratory Results - last 24 hr 12/23/22 12/23/22 04:36 04:36 WBC 11.5 H RBC 3.96 L Hgb 13.2 Hct 38.1 MCV 96.2 MCH 33.4 MCHC 34.7 RDW 13.7 Plt Count 224 Neut % (Auto) 68.7 Lymph % (Auto) 23.2 L [place] % (Auto) 6.4 Eos % (Auto) 0.9 L Baso % (Auto) 0.8 Neut # (Auto) 7900 H Lymph # (Auto) 2700 [place] # (Auto) 700 Eos # (Auto) 100 Baso # (Auto) 100 Blood Type A Positive Antibody Screen Negative Exam Vital Signs (past 8 hours): - 12/23/22 04:46 12/23/22 05:06 Temperature 97.5 F L Pulse Rate 76 Blood Pressure 109/61 109/61 Resp Effort & Inspection: normal respiratory effort and able to speak in complete sentences Other: Fundus firm @ u-1, lochia scant. Perineum- mild edema Psych Appearance: grossly normal and well kempt Discharge Plan Discharge Plan Patient Disposition: Home Discharge orders & Medications Prescriptions: New ibuprofen 600 mg Tablet 600 mg PO Q6HR PRN (Reason: Pain, Mild (1-3)) 14 Days Qty: 60 0RF Continued prenat.vits,julianna,[id number] Tablet 1 tab PO DAILY Discontinued folic acid 400 mcg tablet 0.4 mg PO DAILY Follow up/Referrals: Marcella Dela Cruz CNM [Advanced Mds Manager] - (Follow-up at 2 weeks and 6 weeks , as scheduled) Jocy Rose MD [Primary Care Provider] - Diet/Activity/Treatments Diet: Diet as Tolerated and Regular Activity: pelvic rest x 6 weeks, strict vaginal bleeding precautions Skin/Wound/Dressing Care Report to your healthcare provider any signs of infection, such as:: chills, fever, increased pain, unusual drainage and unusual redness Visit Report/Discharge Packet Instructions: Hemorrhage, DI for Depression Stand Alone Forms: Discharge: Care, Patient Portal/API, Stroke Signs & Symptoms Discharge Data Primary Care Provider: Jocy Rose Discharges patient from system. Discharge Date/Time: 12/23/22 15:35
== END 2022-12-23 15:35 | disposition home or self-care (01) | DRG 560 ==
PROVIDERS: Admitting Provider Nurse Practitioner Obstetrics & Gynecology; PCP Family Medicine; Referring Provider Nurse Practitioner Obstetrics & Gynecology; Visit Provider Nurse Practitioner Obstetrics & Gynecology
DX: O76 Abnormality in fetal heart rate and rhythm complicating labor and delivery (principal); O70.0 First degree perineal laceration during delivery; Z3A.39 39 weeks gestation of pregnancy; Z37.0 Single live birth
CPT/HCPCS: 36415; 59050; 85025; 86850; 86900; 86901; G0379; J1885